=== PATIENT | female | born 1950 | race Caucasian/White ===

== ENCOUNTER 2018-05-15 11:51 | Outpatient (CLI) | payer MEDICARE, BC, SELFPAY ==
[2018-05-15 14:20] LABS: Bilirubin Negative (Negative); Blood Negative (Negative); Clarity Clear; Glucose Negative (Negative); Ketones Negative (Negative); Leukocyte Esterase Negative (Negative); Nitrite Negative (Negative); Specific Gravity 1.015 (1.005-1.025); Urobilinogen 0.2 EU/dL (Up TO 0.2)
[2018-05-15 15:30] LABS: TSH (W/Ref FT4) 4.05 uIU/mL (0.358-3.74)
[2018-05-15 16:01] LABS: FREE T4 1.06 ng/dL (0.76-1.46)
== END 2018-05-15 12:11 ==
PROVIDERS: PCP Internal Medicine; Visit Provider Internal Medicine
DX: E03.9 Hypothyroidism, unspecified (principal); I10 Essential (primary) hypertension; R35.1 Nocturia
CPT/HCPCS: 36415; 81003; 84439; 84443

== ENCOUNTER 2018-09-21 09:54 | Outpatient (CLI) | payer MEDICARE, BC, SELFPAY ==
[2018-09-21 10:21] LABS: Abs Immature Grans 0.02 k/cumm (0.0-0.09); Absolute Basophil Count 0.02 k/cumm (0.0-0.2); Absolute Eosinophil Count 0.16 k/cumm (0.0-0.7); Absolute Lymphocyte Count 1.17 k/cumm (1.2-3.4); Absolute Monocyte Count 0.49 k/cumm (0.11-0.7); Basophils % 0.3; Eosinophils % 2.4; Immature Grans % 0.3; Lymphocytes % 17.6; Mean Corp. HGB Concentration 33.3 g/dL (32.0-36.0); Mean Corpuscular Hemoglobin 32.3 pg (27.0-33.0); Mean Corpuscular Volume 96.8 fL (80-95); Mean Platelet Volume 11.1 fL (8.0-11.0); Monocytes % 7.4; Platelet Count 169 x1000/uL (130-400); RBC 4.03 m/cumm (4.00-5.20); RBC Distribution Width 13.6 % (11.7-14.6); White Blood Cell Count 6.66 k/cumm (4.4-10.8)
[2018-09-21 10:39] LABS: ALT 29 U/L (12-78); AST 22 U/L (15-37); Albumin 3.4 g/dL (3.4-5.0); Alkaline Phosphatase 81 U/L (46-116); Anion Gap 8.4 mmol/L (3-11); BUN 24 mg/dL (7-18); Bilirubin, Total 0.3 mg/dL (0.2-1.0); CO2 30.6 mmol/L (21.0-32.0); CREATININE 0.79 mg/dL (0.55-1.02); Calcium 9.5 mg/dL (8.5-10.1); Chloride 103 mmol/L (98-107); Glucose 92 mg/dL (70-100); Potassium 3.5 mmol/L (3.5-5.1); Sodium 142 mmol/L (136-145); Total Protein 6.8 g/dL (6.4-8.2)
== END 2018-09-21 10:14 ==
PROVIDERS: PCP Internal Medicine; Visit Provider Internal Medicine Medical Oncology
DX: C50.911 Malignant neoplasm of unspecified site of right female breast (principal)
CPT/HCPCS: 36415; 80053; 85025

== ENCOUNTER 2019-01-16 09:25 | Outpatient (CLI) | payer MEDICARE, BC, SELFPAY ==
--- NOTE | 2019-01-16 09:50 | DI.RAD_ITS ---
SYMPTOM/DIAGNOSIS: BACK JPAIN M54.9, DORSALGIA LUMBAR SPINE: AP lateral and bilateral oblique views. There are 5 lumbar type vertebral bodies. There is normal alignment. No spondylolysis or spondylolisthesis. There is mild disc space narrowing at L1-L2, L2-3 and L5-S1. There are end plate osteophytes throughout the lumbar spine. Degenerative changes of the facets are seen at multiple levels. No acute fractures or subluxations are seen. IMPRESSION: Moderate degenerative changes in the lumbar spine.
--- NOTE | 2019-01-16 09:50 | DI.RAD_ITS ---
SYMPTOM/DIAGNOSIS: BACK PAIN M54.9, DORSALGIA CHEST X-RAY: PA and lateral. Comparison 03/27/12 Heart size and pulmonary vasculature are stable and within normal limits. The lungs are clear. No effusions or pneumothoraces are identified. Surgical clips are again seen in the left axilla. There are mild degenerative changes of the spine. No compression fracture deformities are seen in the thoracic spine. IMPRESSION: No acute pulmonary process.
== END 2019-01-16 09:45 ==
PROVIDERS: PCP Internal Medicine; Visit Provider Internal Medicine
DX: M54.5 Low back pain (principal); M51.37 Other intervertebral disc degeneration, lumbosacral region; M47.817 Spondylosis without myelopathy or radiculopathy, lumbosacral region
CPT/HCPCS: 71046; 72110

== ENCOUNTER 2019-02-05 12:03 | Outpatient (CLI) | payer MEDICARE, BC, SELFPAY ==
--- NOTE | 2019-02-05 13:00 | DI.RAD_ITS ---
SYMPTOM/DIAGNOSIS: PAIN RT SACRAL AREA, M53.3, SACROCOCCYGEAL DISORDER SI JOINTS: Five views of the SI joints were obtained. There are mild hypertrophic degenerative changes involving the SI joints. There is no evidence of fusion of the SI joints nor is there evidence of sacroiliitis. Moderate degenerative changes of the lower lumbar spine noted.
[2019-02-05 15:17] LABS: TSH (W/Ref FT4) 3.06 uIU/mL (0.36-3.74)
== END 2019-02-05 12:23 ==
PROVIDERS: PCP Internal Medicine; Visit Provider Internal Medicine
DX: M53.3 Sacrococcygeal disorders, not elsewhere classified (principal); E03.9 Hypothyroidism, unspecified
CPT/HCPCS: 72202; 84443

== ENCOUNTER 2019-05-21 00:54 | Outpatient (CLI) | payer MEDICARE, BC, SELFPAY ==
--- NOTE | 2019-05-21 15:43 | DI.CT_ITS ---
EXAM: CT LUMBAR SPINE WO CLINICAL HISTORY: back pain/ unable to have MRI due to brain clips, lumbar pain, M54.5 TECHNIQUE: The exam was performed according to the usual protocol without contrast. COMPARISON: XR lumbar spine complete from 01/16/2019 XR sacroiliac joints from 02/05/2019 FINDINGS: There is diffuse osteopenia of the bones. In addition there are areas which show loss of the cortex. The findings are suspicious for metastatic disease. There is now a compression fracture of the superior endplate of L5 with loss of approximately 30 perc ent of the height of the vertebral body. There are also compression fractures involving the superior endplates of L1, L2, and L3. There is also marked compression deformity of T12 with loss of approximately 40 percent of the height of the vertebral body. At L5-S1, there is disc space narrowing, subchondral sclerosis and endplate osteophytes. No signific ant central spinal canal stenosis is seen. Moderately severe right and moderate left neural foramina l stenosis is present. At L4-L5, there is diffuse disc bulge. There are degenerative changes of the facets. There is mild narrowing of the central spinal canal. There is [id number] bilateral neural foraminal stenosis . At L3-L4, no significant central spinal canal stenosis is seen. There are endplate osteophytes presen t. Degenerative changes of the facets are noted. There is mild narrowing of the left neural foramen and mild narrowing of the right neural foramen. At L2-L3, there is a diffuse disc bulge. No significant central spinal canal stenosis is seen. Mini mal narrowing of the neural foramen is seen bilaterally. At L1-L2, no significant central spinal canal stenosis or neural foraminal stenosis exists. There are bilateral pleural effusions and subjacent infiltrates in the lung bases. These infiltrates may represent atelectasis or pneumonia. There is a 2.9 centimeter left adrenal nodule. Retroperitoneal adenopathy is present. The largest lymph node is seen to the left of the aorta and m easures 1.7 centimeters in short axis. IMPRESSION: 1. Mixed lytic and sclerotic lesions involving the bones suspicious for osseous metastatic disease. Bone scan may be considered for further evaluation. 2. Multiple lower thoracic and lumbar compression deformities as described above. 3. Multilevel degenerative changes resulting in multilevel neural foraminal and central spinal canal stenosis. Please see the above discussion for complete details. 4. Bilateral pleural effusions and subjacent infiltrates which may represent atelectasis or pneumonia . 5. Retroperitoneal adenopathy. Left adrenal nodule. Metastatic disease cannot be excluded. CT scan of the chest, abdomen and pelvis may be considered for further evaluation.
== END 2019-05-21 01:14 ==
PROVIDERS: PCP Internal Medicine; Visit Provider Internal Medicine
DX: M54.5 Low back pain (principal); M85.88 Other specified disorders of bone density and structure, other site; M48.55XA Collapsed vertebra, not elsewhere classified, thoracolumbar region, initial encounter for fracture; M51.37 Other intervertebral disc degeneration, lumbosacral region; J90 Pleural effusion, not elsewhere classified; R91.8 Other nonspecific abnormal finding of lung field; M84.88 Other disorders of continuity of bone, other site; E27.8 Other specified disorders of adrenal gland; R59.0 Localized enlarged lymph nodes
CPT/HCPCS: 72131

== ENCOUNTER 2019-05-29 13:54 | Outpatient (CLI) | payer MEDICARE, BC, SELFPAY ==
[2019-05-29 14:46] LABS: Abs Immature Grans 0.22 k/cumm (0.0-0.09); Absolute Basophil Count 0.03 k/cumm (0.0-0.2); Absolute Eosinophil Count 0.11 k/cumm (0.0-0.7); Absolute Lymphocyte Count 1.46 k/cumm (1.2-3.4); Absolute Monocyte Count 0.74 k/cumm (0.11-0.7); Absolute Neutrophil Count 6.47 k/cumm (1.2-6.7); Basophils % 0.3; Eosinophils % 1.2; HCT 38.5 % (36.0-46.0); HGB 13.3 g/dL (12.0-15.5); Immature Grans % 2.4; Lymphocytes % 16.2; Mean Corp. HGB Concentration 34.5 g/dL (32.0-36.0); Mean Corpuscular Hemoglobin 31.9 pg (27.0-33.0); Mean Corpuscular Volume 92.3 fL (80-95); Mean Platelet Volume 9.9 fL (8.0-11.0); Monocytes % 8.2; Neutrophils % 71.7; Platelet Count 210 x1000/uL (130-400); RBC 4.17 m/cumm (4.00-5.20); RBC Distribution Width 14.1 % (11.7-14.6); White Blood Cell Count 9.03 k/cumm (4.4-10.8)
[2019-05-29 15:11] LABS: ALT 28 U/L (14-59); AST 33 U/L (15-37); Albumin 3.8 g/dL (3.4-5.0); Alkaline Phosphatase 167 U/L (46-116); Anion Gap 10.7 mmol/L (3-11); BUN 17 mg/dL (7-18); Bilirubin, Total 0.5 mg/dL (0.2-1.0); CO2 31.3 mmol/L (21.0-32.0); CREATININE 0.71 mg/dL (0.55-1.02); Calcium 11.1 mg/dL (8.5-10.1); Chloride 94 mmol/L (98-107); Glucose 104 mg/dL (74-106); Potassium 3.2 mmol/L (3.5-5.1); Sodium 136 mmol/L (136-145); Total Protein 7.8 g/dL (6.4-8.2)
[2019-05-31 16:33] LABS: Cancer Ag 15-3 32 U/mL (<30)
== END 2019-05-29 14:14 ==
PROVIDERS: PCP Internal Medicine; Visit Provider Internal Medicine
DX: C50.911 Malignant neoplasm of unspecified site of right female breast (principal)
CPT/HCPCS: 36415; 80053; 86304; 85025; 86300

== ENCOUNTER 2019-06-10 11:38 | Inpatient (IN) | payer MEDICARE, BC, SELFPAY ==
[2019-06-10] VITALS (32 sets, daily range): BP systolic 103–167; BP diastolic 55–72; PULSE 72–92; RESP 9–20; TEMP 36.3–36.8; O2SAT 87–100
--- NOTE | 2019-06-10 12:01 | W.ED.GENAD ---
Discharge Plan Discharge Details Chief Complaint: RespSymp Admit Date/Time: 06/11/19 16:10 Admit Provider: Melanie Daives Attending Provider: Melanie Davies Primary Care Provider: Mago Velez ED Provider: Radha Weber Discharge Data Discharge Date/Time-TO BE ENTERED AT DEPARTURE: 06/10/19 18:10 Medical Decision Making <Guru Campos DO - Last Filed: 06/10/19 13:51> EKG 12: 26 Rate 85, intervals unremarkable, sinus rhythm, no significant ST elevations or depressions, no evidence of STEMI. <ELADIO Vincent - Last Filed: 06/12/19 00:54> Patient is a pleasant 69-year-old female presenting today with chief complaint of shortness of breath. Patient is currently being treated for recurrence of her breast cancer. There is concern that she has recurrent breast cancer that is metastatic with much disease in her spine. She has had difficulty with severe pain that has been limiting her ADLs. Is having difficulty can walk to the bathroom at this point. She is followed by palliative care. Was scheduled to undergo biopsy of lymph node last week was unable to get to the appointment secondary to the pain in her back. Having difficulty simply getting to the bathroom at this point and is largely relying her . She does have home health services come in approximately 2 hours/week. Reports that she was referred to occupational therapy. She presents today with concern for shortness of breath. Reports shortness of breath has began worsening over the past few days. States it is worse when laying supine. Denies any fevers. No cough. Denies any increase in sputum production. No recent travel. No recent antibiotics. Has never been a smoker. No known sick contacts. Endorses nausea currently. On exam, patient appears chronically ill. She does not appear acutely toxic. She not tripoding or working to breathe. She does appear very uncomfortable with minimal movements. Seems to be primarily pain in her back. She has reports the pain in her back and radiated down the right thigh. Differential diagnosis include metastasis to the lung, thoracic spine fracture, pulmonary embolism, pneumonia, ACS, CHF. Plan for chest x-ray, laboratory evaluation, ECG. After the patient had the IV ondansetron, she reports her nausea is improved but she continues to persist. We will give a GI cocktail patient's request. Reviewed patient's lab. Significant for d-dimer 6190. Plan for CTA to rule out PE. Patient does have elevated BNP of 663. CT reviewed by radiologist: FINDINGS: Pulmonary arteries: Small pulmonary embolus: Filling defect in small branch to the left upper lobe. (6: 314-317). Aorta: Unremarkable. No aortic aneurysm. No aortic dissection. Lungs: Consolidation in the lower lobes may represent atelectasis or pneumonia. Pleural space: Large left pleural effusion. Smaller right pleural effusion. Heart: Unremarkable. No cardiomegaly. No pericardial effusion. Adrenals: Left adrenal nodule 3 by 2.3 cm. Twelve Hounsfield units. Not clearly adrenal adenoma. Lymph nodes: Unremarkable. No enlarged lymph nodes. Bones/joints: Multiple sclerotic and lytic lesions throughout the spine consistent with metastatic disease. Compression fractures of unknown age in the thoracolumbar spine Soft tissues: Unremarkable. IMPRESSION: 1. Multiple sclerotic and lytic lesions throughout the spine consistent with metastatic disease. 2. Large left pleural effusion. Smaller right pleural effusion. 3. Small pulmonary embolus: Filling defect in small branch to the left upper lobe. (6: 314-317). 4. Consolidation in the lower lobes may represent atelectasis or pneumonia. 5. Left adrenal nodule 3 by 2.3 cm. Twelve Hounsfield units. Not clearly adrenal adenoma. Had lengthy discussion with the patient and her . She wishes to be a DNR/DNI at this time. They are considering hospice care at this point. We discussed inpatient treatment this patient has been failing at home. She would like to discuss anticoagulation further with hospitalist prior to beginning this treatment. Her pain seems to be a primary complaint at this time and her primary concern. I feel that inpatient admission for pain control is appropriate. Discussed the case with the hospitalist. We will plan for CT of her head prior to beginning anticoagulant. Patient be admitted for pain control and further care based on patient's wishes. All of her questions and concerns were addressed she is agreement this plan. HPI <Guru Campos, - Last Filed: 06/10/19 13:51> General Date/Time Provider Initiated Documentation: 06/10/19 11:39. Related Data Home Medications Medication Instructions Recorded Confirmed Travatan 0.004% Eye Drop 1 drp OU DAILY drp 05/17/13 12/22/19 Selwyn Seed 1 tbs PO DAILY 05/11/13 06/10/19 calcium carbonate [Tums] 2,000 mg PO twice a week #90 11/25/14 06/10/19 tab.chew cholecalciferol (vitamin D3) 2,000 unit PO DAILY #90 tab 11/25/14 06/10/19 [Vitamin D3] brimonidine 0.2 %-timolol 0.5 % 1 drp OD BID #5 m 05/17/18 06/10/19 eye drops losartan 100 1 tab PO DAILY #90 tab-cap 05/17/18 06/10/19 mg-hydrochlorothiazide 25 mg tablet levothyroxine 25 mcg capsule 37.5 mcg PO DAILY #145 cap 05/18/18 06/10/19 amlodipine 5 mg tablet 5 mg PO DAILY #30 tab-cap 01/15/19 06/10/19 salmeterol 50 mcg/dose blister 1 inh IH BID #60 each 02/28/19 06/10/19 powder for inhalation metoprolol succinate 50 mg 50 mg PO DAILY #90 tab 03/28/19 06/10/19 tablet,extended release 24 hr anastrozole 1 mg tablet 1 mg PO DAILY tab-cap 06/05/19 06/10/19 oxycodone 15 mg tablet 15 mg PO Q4H PRN #60 tab MDD 90 mg 06/05/19 06/10/19 polyethylene glycol 3350 17 17 gm PO DAILY PRN #510 gm 06/05/19 06/10/19 gram/dose oral powder fentanyl 4 patch TD Q72H MDD 48 mg 06/10/19 06/10/19 Previous Rx's Medication Instructions Recorded brimonidine 0.2 %-timolol 0.5 % 1 drp OD BID #5 m 05/17/18 eye drops losartan 100 1 tab PO DAILY #90 tab-cap 05/17/18 mg-hydrochlorothiazide 25 mg tablet levothyroxine 25 mcg capsule 37.5 mcg PO DAILY #145 cap 05/18/18 amlodipine 5 mg tablet 5 mg PO DAILY #30 tab-cap 01/15/19 salmeterol 50 mcg/dose blister 1 inh IH BID #60 each 02/28/19 powder for inhalation metoprolol succinate 50 mg 50 mg PO DAILY #90 tab 10/09/19 tablet,extended release 24 hr oxycodone 15 mg tablet 15 mg PO Q4H PRN #60 tab MDD 90 mg 06/05/19 polyethylene glycol 3350 17 17 gm PO DAILY PRN #510 gm 06/05/19 gram/dose oral powder Allergies Allergy/AdvReac Type Severity Reaction Status Date / Time nickel Allergy Severe SWELLING; Verified 06/10/19 12:02 ITCH paclitaxel [From Taxol] Allergy Intermediate Cardiac Verified 06/10/19 12:02 Dysrythmia formaldehyde Allergy Unknown HANDS Verified 06/10/19 12:02 BREAKOUT; CRACK iodine Allergy Unknown Verified 06/10/19 12:02 doxycycline AdvReac Intermediate Nausea Verified 06/10/19 12:02 <ELADIO Vincent - Last Filed: 06/12/19 00:54> General Mode of arrival: wheelchair. Limitations to Documentation: no limitations. Information obtained by: patient, family () and RN notes reviewed. HPI Narrative: Patient is 69-year-old female presenting today with chief complaint of shortness of breath. Patient is currently undergoing treatment for recurrent breast cancer. Is receiving immunotherapy. Is having issues with chronic pain is currently being treated by palliative care. She is noted to have crackles to be short of breath by her home health nurse today. She denies any cough. No fevers. Denies any chills. No new change in her pain. She denies any pleuritic chest pain, no pain with coughing or inspiration. Denies any sore throat. No recent travel. No recent change in medications. She does report that she had increased right leg pain, is being followed by Dr. Rogers for this. Currently using for fentanyl patches and as needed oxycodone. <ELADIO Vincent - Last Filed: 06/12/19 00:54> Constitutional Constitutional: Reports as per HPI, Denies chills, Reports fatigue, Denies fever(s), Denies headache(s), Reports lethargy and Reports poor appetite Eyes Eyes: Denies change in vision ENT Ears, Nose, Mouth, and Throat: Denies dizziness and Denies headache(s) Cardiovascular Cardiovascular: Reports as per HPI, Denies chest pain, Denies chest pain at rest, Denies chest pain with activity, Reports pedal edema, Reports edema, Denies irregular heart rhythm, Denies claudication, Denies lightheadedness, Denies radiating jaw, neck or arm pain, Denies palpitations, Reports dyspnea, Reports dyspnea on exertion and Reports orthopnea Respiratory Respiratory: Reports as per HPI, Denies chest congestion, Denies cough, Denies hemoptysis, Denies excessive phlegm production, Denies pain on inspiration, Denies pain with cough, Reports dyspnea, Reports dyspnea on exertion and Denies wheezing Gastrointestinal Gastrointestinal: Reports as per HPI, Denies abdominal pain, Denies diarrhea, Denies nausea and Denies vomiting Musculoskeletal Musculoskeletal: Reports as per HPI and Denies back pain Integumentary/Breasts Skin/Breast: Reports as per HPI and Denies rash Neurologic Neurologic: Reports as per HPI, Denies dizziness and Denies headache(s) Endocrine Endocrine: Reports fatigue and Denies palpitations Allergic/Immunologic Allergic/Immunologic: Denies wheezing [facility] <Guru Campos DO - Last Filed: 06/10/19 13:51> Medical History (Updated 06/11/19 @ 18:03 by Melissa Proctor MD) Aneurysm Asthma Blind right eye (Acute) Dyspnea (Acute) Generalized weakness (Acute) History of cerebral aneurysm (Acute) HTN (hypertension) Malignant neoplasm of breast (female), unspecified site (Acute 08/28/12) 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 Adjuvant RX and radiation Metastatic breast cancer (Chronic) to spine and other bones, lung, lymph nodes Neoplasm, breast Follow-up with [facility] this fall. Palliative care patient (Acute) Pulmonary embolism (Chronic) Recurrent breast cancer (Chronic) passed her 5 year cure date in September 2018 Unintentional weight loss (Acute) Surgical History Abdominal hysterectomy (~1998) ovaries remain Colonoscopy - IV Sedation (05/21/16) Family History Mother , age 83 Hypertension Stroke Father , age 85 Heart disease Sister , age 64 Leukemia Sister , age 83 Stroke Sister No problems noted. Brother , age 84 Heart disease Brother No problems noted. Son No problems noted. Son No problems noted. Daughter No problems noted. Daughter No problems noted. Social History Smoking/Tobacco Use Status: Never Alcohol Intake: current Alcohol Intake frequency: a few times a week Alcohol type: wine Drug use: Never Substance use type: does not use Caregiver/Support person: Yes Household members: spouse Housing: house Do you need help understanding health information?: Rarely Pets and animals: No Sexually active: No Do you think of yourself as: straight/heterosexual Current gender identity: decline to answer What is your relationship status?: How often do you talk on the phone with friends or family?: twice per week How often do you get together with friends or relatives?: once per week How often do you attend mormon or adventist services?: decline to answer Do you belong to any clubs or organized social groups?: yes Panel score (0-1 are the most socially isolated patients): 3 What type of physical activity do you participate in: walking and other Duration: 15-30 minutes/day Frequency: daily Leann/Jehovah'S Witness: Buddhist Special leann needs: No Seatbelt use: always Drive intox or ride w/intox restaurant 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 Not surprised at current findings. Knows she is very sick. Pain is uncontrolled, intolerable. Very winded with minimal exertion, weak,. <ELADIO Vincent - Last Filed: 06/12/19 00:54> Const General: cooperative, uncomfortable (appears very uncomfortable with movement), no acute distress and well developed Nutritional Appearance: cachectic and malnourished Orientation: alert, awake and oriented x3 HENMT Head: normal to inspection Ears: hearing grossly normal bilaterally Mouth: mucous membranes dry (appears dry on exam) Chest Chest: normal inspection of the chest, normal palpation of entire chest wall and no crepitus Resp Effort & Inspection: normal respiratory effort, able to speak in complete sentences and no respiratory distress Auscultation: clear to auscultation bilaterally, no rales, no rhonchi and no wheezes Cardio Rate: regular rate Rhythm: regular rhythm Heart Sounds: S1 normal and S2 normal GI Inspection: normal to inspection, no edema and non-distended Palpation: soft, no hepatosplenomegaly, not firm, no guarding, not rigid and nontender Auscultation: normal bowel sounds Back/Spine/Pelvis Back: no CVA tenderness Thoracic/Lumbar Spine: thoracic and lumbar spine normal to inspection Skin General skin exam: no rashes or lesions noted Trauma: no lacerations or abrasions Neuro General: alert, awake and oriented x3 Cognition: normal cognition Speech: speech normal Gait: normal gait Extrem General: normal to inspection, normal capillary refill, no pedal edema, no calf tenderness and normal gait Psych Appearance: grossly normal and well kempt Mental Status: mental status grossly normal Speech and Movement: speech and movement normal
[2019-06-10] MEDS: Ondansetron 4 MG/2 ML VIAL IVP (12:58)
[2019-06-10] MEDS: HYDROmorphone 2 MG/ML VIAL ×2 (12:58→16:43)
[2019-06-10 13:09] LABS: Abs Immature Grans 0.47 k/cumm (0.0-0.09); HCT 36.4 % (36.0-46.0); HGB 12.5 g/dL (12.0-15.5); Mean Corp. HGB Concentration 34.3 g/dL (32.0-36.0); Mean Corpuscular Hemoglobin 31.6 pg (27.0-33.0); Mean Corpuscular Volume 91.9 fL (80-95); Platelet Count 259 x1000/uL (130-400); RBC 3.96 m/cumm (4.00-5.20); RBC Distribution Width 13.9 % (11.7-14.6); White Blood Cell Count 10.91 k/cumm (4.4-10.8)
--- NOTE | 2019-06-10 13:41 | DI.RAD_ITS ---
EXAM: XR CHEST 2V PA LATERAL INDICATION: SOB. COMPARISON: CHEST 2 VIEWS PA,LAT from 03/27/2012 XR CHEST 2V PA LATERAL from 01/16/2019 CT ABDOMEN AND PELVIS W CONTRAST from 06/01/2019 CT CHEST PE CTA from 06/10/2019 TECHNIQUE: 2D digital imaging was performed. FINDINGS: The pulmonary vasculature appears stable and within normal limits. There are bilateral small pleural effusions, left greater than right. There is an infiltrate seen in the left lung base. No pneumoth orax is identified. There is an old right 6th rib fracture laterally. This was present on the CT sc an of the chest from [facility] dated 06/01/2019. Degenerative changes are seen in the spine. IMPRESSION: 1. Bilateral pleural effusions, left greater than right. 2. Left basilar infiltrate. This may represent atelectasis or pneumonia. 3. Stable right 6th rib fracture.
[2019-06-10 13:47] LABS: INR 1.1 (0.9-1.1); PTT Activated 23.9 sec (21.0-31.4); Prothrombin Time 11.2 sec (9.3-11.0)
[2019-06-10 13:51] LABS: Absolute Lymphocyte Count 1.42 k/cumm (1.2-3.4); Absolute Neutrophil Count 8.51 k/cumm (1.2-6.7); Atypical Lymphocytes % 2
[2019-06-10 13:52] LABS: ALT 35 U/L (14-59); AST 30 U/L (15-37); Absolute Eosinophil Count 0.11 k/cumm (0.0-0.7); Absolute Monocyte Count 0.55 k/cumm (0.11-0.7); Albumin 3.2 g/dL (3.4-5.0); Alkaline Phosphatase 171 U/L (46-116); BUN 25 mg/dL (7-18); Bilirubin, Total 0.5 mg/dL (0.2-1.0); CREATININE 0.94 mg/dL (0.55-1.02); Calcium 8.5 mg/dL (8.5-10.1); Chloride 90 mmol/L (98-107); Diff Comment Manual Differential; Glucose 104 mg/dL (74-106); Magnesium 2.1 mg/dL (1.8-2.4); NT-proBNP 663 pg/mL (<300); Potassium 3.4 mmol/L (3.5-5.1); RBC Morphology Normal; Sodium 129 mmol/L (136-145); Troponin I < 0.05 ng/Ml (<0.06)
[2019-06-10] MEDS: Pantoprazole 40 MG VIAL IVP ×2 (14:02)
[2019-06-10] MEDS: Normal Saline Flush 10 ML SYR IVP ×2 (14:02→19:48)
[2019-06-10 14:07] LABS: D-Dimer 6190 ng/mlFEU (<500)
--- NOTE | 2019-06-10 14:17 | DI.VRAD_ITS ---
PROCEDURE INFORMATION: Exam: XR Chest, 2 Views Exam date and time: 06/10/2019 1:41 PM Age: 69 years old Clinical indication: Shortness of breath; Patient HX: SOB TECHNIQUE: Imaging protocol: XR of the chest Views: 2 views. COMPARISON: CR XR CHEST 2V PA LATERAL 16/01/2019 09:49 FINDINGS: Lungs: Left lower lobe consolidation. Patchy infiltrate left upper lobe. Right lower lobe posterior segment infiltrate. Pleural space: Left pleural effusion. Small right pleural effusion. Heart/Mediastinum: Cardiomegaly. Prominent right hilar nodule. Bones/joints: Multilevel degenerative changes of the thoracic spine. Midthoracic compression deformities. Suspect right 6th lateral rib fracture. Soft tissues: Postsurgical changes left breast and chest. IMPRESSION: 1. Bilateral pneumonia. Bilateral pleural effusions. 2. Suspect right 6th lateral rib fracture. 3. Cardiomegaly. Dictated and Authenticated by: Gege Minor MD. Ordering:MARIA Garcia MD
[2019-06-10] MEDS: Omnipaque 350 MG/ML 100 ML BTL IJ (15:08)
--- NOTE | 2019-06-10 15:20 | DI.CT_ITS ---
EXAM: CT CHEST PE CTA CLINICAL HISTORY: SOB, elevated d-dimer TECHNIQUE: Imaging Protocol: Axial CT angiography was performed with multi-slice acquisition and mu lti-planar and/or 3D reconstructions. CONTRAST MATERIAL: Intravenous: Omnipaque 350 Contrast volume:70 mL contrast route:IV - Oral:No COMPARISON: CT ABDOMEN AND PELVIS W CONTRAST from 06/01/2019 FINDINGS: Pulmonary Arteries: There does appear to be a small filling defect in a branch of the pulmonary arter ies in the left upper lobe. (Series 6, images [id number].) Tracheobronchial tree: Patent where visualized. Mediastinum and Mikala: No dominant adenopathy or fluid collection. Pulmonary parenchyma: There is an unchanged opacity in the left lung apex. There are areas of consol idation adjacent to the pleural effusions in the lung bases bilaterally. Pleura: There is a large left and a smaller right pleural effusion present. Heart/Aorta: Thoracic aorta non-dilated. No cardiomegaly. No pericardial effusion. No evidence of r ight heart strain. No coronary artery calcifications are seen. Upper abdomen: Note is again made of a left adrenal nodule which appears stable. Bones: There are again seen multiple lytic and sclerotic lesions consistent with metastatic disease. There are age-indeterminate compression fracture deformities seen in both the thoracic and upper lum bar spine. IMPRESSION: 1. Filling defect is seen in a branch of the pulmonary artery in the left upper lobe suggesting pulmo nary embolus. No evidence of right heart strain. 2. Large left and smaller right pleural effusion with subjacent infiltrates which may represent atele ctasis or pneumonia. 3. Stable opacity in the left lung apex. 4. Findings consistent with osseous metastatic disease. Indeterminate thoracic and lumbar compressio n fracture deformities. 5. Stable left adrenal nodule. DATA REPOSITORY: All CT scans at this facility are submitted to the National Radiology Data Registry (NRDR) Dose Index Registry (DIR) with the [employer] ([employer]). RADIATION OPTIMIZATION: All CT scans at this facility use at least one of these dose optimization te chniques: automated exposure control; mA and/or kV adjustment per patient size (includes targeted exa ms where dose is matched to clinical indication); or iterative reconstruction.
[2019-06-10] MEDS: Normal Saline 500 ML IV (16:00)
--- NOTE | 2019-06-10 16:04 | DI.VRAD_ITS ---
Addendum created by Clari Butt MD on 06/10/2019 4:08:07 PM EST THIS REPORT CONTAINS FINDINGS THAT MAY BE CRITICAL TO PATIENT CARE. The findings were verbally communicated via telephone conference with NATALY NAPIER at 4:08 PM EST on 06/10/2019. The findings were acknowledged and understood. Initial report created on 06/10/2019 4:04:10 PM EST PROCEDURE INFORMATION: Exam: CT Angiography Chest With Contrast Exam date and time: 06/10/2019 3:07 PM Age: 69 years old Clinical indication: Shortness of breath; Patient HX: SOB, elevated d- dimer TECHNIQUE: Imaging protocol: Computed tomographic angiography of the chest with intravenous contrast. 3D rendering: MIP and/or 3D reconstructed images were created by the technologist. Radiation optimization: All CT scans at this facility use at least one of these dose optimization techniques: automated exposure control; mA and/or kV adjustment per patient size (includes targeted exams where dose is matched to clinical indication); or iterative reconstruction. Contrast material: OMNIPAQUE 350; Contrast volume: 70 ml; Contrast route: IV; COMPARISON: CR XR CHEST 2V PA LATERAL 06/10/2019 1:38 PM FINDINGS: Pulmonary arteries: Small pulmonary embolus: Filling defect in small branch to the left upper lobe. (6: 314-317). Aorta: Unremarkable. No aortic aneurysm. No aortic dissection. Lungs: Consolidation in the lower lobes may represent atelectasis or pneumonia. Pleural space: Large left pleural effusion. Smaller right pleural effusion. Heart: Unremarkable. No cardiomegaly. No pericardial effusion. Adrenals: Left adrenal nodule 3 by 2.3 cm. Twelve Hounsfield units. Not clearly adrenal adenoma. Lymph nodes: Unremarkable. No enlarged lymph nodes. Bones/joints: Multiple sclerotic and lytic lesions throughout the spine consistent with metastatic disease. Compression fractures of unknown age in the thoracolumbar spine Soft tissues: Unremarkable. IMPRESSION: 1. Multiple sclerotic and lytic lesions throughout the spine consistent with metastatic disease. 2. Large left pleural effusion. Smaller right pleural effusion. 3. Small pulmonary embolus: Filling defect in small branch to the left upper lobe. (6: 314-317). 4. Consolidation in the lower lobes may represent atelectasis or pneumonia. 5. Left adrenal nodule 3 by 2.3 cm. Twelve Hounsfield units. Not clearly adrenal adenoma. Dictated and Authenticated by: Clari Butt MD. Ordering:MARIA Garcia MD
--- NOTE | 2019-06-10 16:48 | HPE_ITS ---
Date of service: 06/10/19 Assessment and Plan Assessment and plan (1) Malignant neoplasm of breast (female), unspecified site: Start date: 06/10/19 Start time: 17:38 Status: Acute Assessment and plan: Breast CA with mets to the bone. Palliative patient with uncontrolled pain. On fentanyl patch at this time. Increased SOB and found to have PE. Also c/o hallucinations and confusion. Could be narcotics also likely brain mets. Will obtain Head CT/ hold anticoagulation at this time Add morphine IV for pain control Lengthy discussion with patient regarding illness and goals of care. Palliative/Hospice for consult. At this time patient wants to know more about Hospice Surgery consult as there is also Large left pleural effusion which is likely contributing to SOB (2) Pulmonary embolism: Start date: 06/10/19 Start time: 17:37 Status: Chronic Assessment and plan: Small pulmonary embolism revealed by CT. Hold anticogulation due to possible brain mets. (3) Uncontrolled pain: Start date: 06/10/19 Start time: 17:41 Status: Acute Assessment and plan: From cancer. See above, will give IV morphine. (4) Pleural effusion: Start date: 06/10/19 Start time: 17:41 Status: Acute Assessment and plan: Chest CT revealing large left pleural effusion. Surgery consult for possible drainage of effusion. (5) Essential hypertension: Start date: 06/10/19 Start time: 17:42 Status: Acute Assessment and plan: Variable though could be a component with pain as well. Will monitor. 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 (7) Hallucinations: Start date: 06/10/19 Start time: 17:45 Status: Acute Assessment and plan: Worsening over last week. Lucid during hallucinations also confusion at times. Could be mets or medication induced will get CT of h ead. (8) DVT prophylaxis: Start date: 06/10/19 Start time: 17:45 Status: Acute Assessment and plan: Hold at this time due to possible brain mets. History of Present Illness History of Present Illness Chief Complaint: PE, Pleural Effusion, Bone Mets Narrative: 69 y.o female with PMH of breast ca with mets to the bone, HTN, GERD, Aneurysm, and Asthma admitted from [facility] ED for PE and pain control. Patient presented to ED after 1 week of SOB worsening to the point of being unable to lie down with severe pain uncontrolled by current pain regimen. Recently diagnosed by [facility] with bone mets and placed on fentanyl patch for pain. Imaging in the ED reveals Multiple sclerotic and lytic lesions throughout the spine consistent with metastatic disease. Large left pleural effusion. Smaller right pleural effusion. Small pulmonary embolus: Filling defect in small branch to the left upper lobe. (6: 314-317). Consolidation in the lower lobes may represent atelectasis or pneumonia. Left adrenal nodule 3 by 2.3 cm. Twelve Hounsfield units. Not clearly adrenal adenoma. There is also a question of brain mets with patient endorsing hallucination and confusion for at least 1 week though this could be from medication. CT will be obtained. Labs notable for potassium 3.4, sodium 129, will give potassium run at this time, consult surgery for large effusion, hold on anticoagulation at this time due to possible brain mets. Hospice consulted and palliative consulted. Patient denies CP, N/V/D. Review of Systems All systems reviewed & are unremarkable except as noted in HPI and below [facility] Medical History Aneurysm Asthma HTN (hypertension) Neoplasm, breast Follow-up with [facility] this fall. Surgical History Abdominal hysterectomy (~1998) ovaries remain Colonoscopy - IV Sedation (05/21/16) Family History Mother , age 83 Hypertension Stroke Father , age 85 Heart disease Sister , age 64 Leukemia Sister , age 83 Stroke Sister No problems noted. Brother , age 84 Heart disease Brother No problems noted. Son No problems noted. Son No problems noted. Daughter No problems noted. Daughter No problems noted. Social History Smoking/Tobacco Use Status: Never Alcohol Intake: current Alcohol Intake frequency: a few times a week Alcohol type: wine Drug use: Never Substance use type: does not use Caregiver/Support person: Yes Household members: spouse Housing: house Do you need help understanding health information?: Rarely Pets and animals: No Sexually active: No Do you think of yourself as: straight/heterosexual Current gender identity: decline to answer What is your relationship status?: How often do you talk on the phone with friends or family?: twice per week How often do you get together with friends or relatives?: once per week How often do you attend presybeterian or restorationist services?: decline to answer Do you belong to any clubs or organized social groups?: yes Panel score (0-1 are the most socially isolated patients): 3 What type of physical activity do you participate in: walking and other Duration: 15-30 minutes/day Frequency: daily Leann/Christianity: Amish Special leann needs: No Seatbelt use: always Drive intox or ride 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 Do you feel safe at home: Yes Do you feel safe in your relationship?: Yes Meds Home Medications and Allergies Home Medications Medication Instructions Recorded Confirmed Type Travatan 0.004% Eye Drop 1 drp OU DAILY drp 11/03/12 06/05/19 History Selwyn Seed 1 tbs PO DAILY 05/11/13 06/05/19 History calcium carbonate [Tums] 2,000 mg PO twice a week #90 11/25/14 06/05/19 History tab.chew cholecalciferol (vitamin D3) 2,000 unit PO DAILY #90 tab 11/25/14 06/05/19 History [Vitamin D3] brimonidine-timolol 0.2 %-0.5 % 1 drp OD BID #5 m 05/17/18 06/05/19 Rx eye drops losartan 100 1 tab PO DAILY #90 tab-cap 05/17/18 06/05/19 Rx mg-hydrochlorothiazide 25 mg tablet levothyroxine 25 mcg capsule 37.5 mcg PO DAILY #145 cap 05/18/18 06/05/19 Rx amlodipine 5 mg tablet 5 mg PO DAILY #30 tab-cap 01/15/19 06/05/19 Rx salmeterol 50 mcg/dose blister 1 inh IH BID #60 each 02/28/19 06/05/19 Rx powder for inhalation metoprolol succinate 50 mg 50 mg PO DAILY #90 tab 03/28/19 06/05/19 Rx tablet,extended release 24 hr anastrozole 1 mg tablet 1 mg PO DAILY tab-cap 06/05/19 06/05/19 History oxycodone 15 mg tablet 15 mg PO Q4H PRN #60 tab MDD 90 mg 06/05/19 06/05/19 Rx polyethylene glycol 3350 17 17 gm PO DAILY PRN #510 gm 06/05/19 06/05/19 Rx gram/dose oral powder fentanyl 4 patch TD Q72H MDD 48 mg 06/10/19 06/10/19 History Allergies Allergy/AdvReac Type Severity Reaction Status Date / Time nickel Allergy Severe SWELLING; Verified 06/10/19 12:02 ITCH paclitaxel [From Taxol] Allergy Intermediate Cardiac Verified 06/10/19 12:02 Dysrythmia formaldehyde Allergy Unknown HANDS Verified 06/10/19 12:02 BREAKOUT; CRACK iodine Allergy Unknown Verified 06/10/19 12:02 doxycycline AdvReac Intermediate Nausea Verified 06/10/19 12:02 Exam Const General: cooperative and comfortable Nutritional Appearance: thin Orientation: alert, awake and oriented x3 HENMT Head: normal to inspection Ears: hearing grossly impaired General nose exam: external nose normal Eyes Pupils: PERRL EOM: EOM intact bilaterally Neck Neck: normal visual inspection Thyroid: thyroid normal Lymphatic: no lymphadenopathy noted Chest Chest: normal inspection of the chest Resp Effort & Inspection: able to speak in complete sentences, decreased respiratory effort and other Auscultation: clear to auscultation bilaterally Cardio Jugular venous pressure: no JVD Rate: regular rate Rhythm: regular rhythm Heart Sounds: S1 normal and S2 normal GI Inspection: normal to inspection Palpation: soft and no hepatosplenomegaly Percussion: normal to percussion General: deferred Back/Spine/Pelvis Back: no CVA tenderness Thoracic/Lumbar Spine: No thoracic and lumbar spine normal to inspection Other: severe pain to hip and back Skin General skin exam: no rashes or lesions noted Trauma: no lacerations or abrasions Neuro General: alert, awake and oriented x3 Cognition: normal cognition Extrem General: normal to inspection Left upper extremity: full ROM Psych Appearance: grossly normal Affect: normal affect Results Labs Result diagrams: 06/10/19 12:55 06/10/19 12:55 Labs: Laboratory Results - last 24 hr 06/10/19 06/10/19 06/10/19 12:55 12:55 12:55 WBC 10.91 H RBC 3.96 L Hgb 12.5 Hct 36.4 MCV 91.9 MCH 31.6 MCHC 34.3 RDW 13.9 Plt Count 259 MPV 10.0 Immature Gran % See Differential Neutrophils % 77.0 Band Neutrophils % 1.0 Lymphocytes % 11.0 Atypical Lymphs % 2 Monocytes % 5.0 Eosinophils % 1.0 Basophils % 0.0 Metamyelocytes % 1.0 Myelocytes % 2.0 Absolute Neutrophils 8.51 H Absolute Lymphocytes 1.42 Absolute Monocytes 0.55 Absolute Eosinophils 0.11 Absolute Basophils 0.00 Differential Comment Manual differential RBC Morphology Normal PT 11.2 H INR 1.1 APTT 23.9 D-Dimer 6190 H Sodium 129 L Potassium 3.4 L Chloride 90 L Carbon Dioxide 35.0 H Anion Gap 4.0 BUN 25 H Creatinine 0.94 Estimated GFR/1.73 m2 58.70 Glucose 104 Calcium 8.5 Magnesium 2.1 Total Bilirubin 0.5 AST 30 ALT 35 Alkaline Phosphatase 171 H Troponin I < 0.05 NT-Pro-B Natriuret Pep 663 Total Protein 7.0 Albumin 3.2 L Last Vital Signs Temp 36.3 C L 06/10/19 11:52 Pulse 85 06/10/19 16:31 Resp 16 06/10/19 14:50 BP 150/60 H 06/10/19 16:31 Pulse Ox 92 L 06/10/19 16:31
[2019-06-10] MEDS: HYDROmorphone 2 MG/ML VIAL 1 MG IVP (18:07)
--- NOTE | 2019-06-10 18:22 | DI.CT_ITS ---
EXAM: CT HEAD WO CLINICAL HISTORY: brain mets?? TECHNIQUE: The exam was performed according to the usual protocol without contrast. COMPARISON: No exams were available for comparison FINDINGS: The ventricles and sulci are consistent with the patient's age. There are areas of encephalomalacia involving the left frontal lobe and the right posterior parietal lobe. The ventricles are intact. T he basilar cisterns are patent. No acute intracranial hemorrhage, midline shift or mass effect is pr esent. There are aneurysm clips seen in the anterior midline. There are findings of a prior right f rontal and temporal craniotomy. The visualized paranasal sinuses are clear as are the mastoid air ce lls. No calvarial fracture is identified. The contrast was not administered which limits evaluation for metastatic disease. IMPRESSION: 1. Suboptimal examination for metastases as IV contrast was not administered. 2. No acute intracranial process. 3. Findings of a prior aneurysm clipping with right frontal craniotomy. 4. Areas of encephalomalacia involving the left frontal lobe and the posterior right parietal lobe.
--- NOTE | 2019-06-10 18:36 | DI.VRAD_ITS ---
PROCEDURE INFORMATION: Exam: CT Head Without Contrast Exam date and time: 06/10/2019 6:16 PM Age: 69 years old Clinical indication: Patient HX: HX of cancer, ? brain mets TECHNIQUE: Imaging protocol: Computed tomography of the head without contrast. Radiation optimization: All CT scans at this facility use at least one of these dose optimization techniques: automated exposure control; mA and/or kV adjustment per patient size (includes targeted exams where dose is matched to clinical indication); or iterative reconstruction. COMPARISON: No relevant prior studies available. FINDINGS: Brain: Mildly prominent ventricles and cortical sulci. Old right posterior parietal and left frontal lobe infarct. Midline shift: Anterior midline aneurysmal clip. Ventricles: Unremarkable. No ventriculomegaly. Bones/joints: There are no prior films available for comparison. Patient has had a prior right frontal craniotomy with an aneurysmal clips in place. There is no evidence for bone metastases. Sinuses: Visualized sinuses are unremarkable. No fluid levels. Mastoid air cells: Visualized mastoid air cells are well aerated. Soft tissues: Unremarkable. Vasculature: No IV contrast was administered to evaluate for metastatic lesions. IMPRESSION: 1. Cannot rule out brain metastases without IV contrast. Prior studies would be helpful for further evaluation. 2. Prior right frontal craniotomy with aneurysmal clips in place. 3. 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 Dictated and Authenticated by: Gege Minor MD. Ordering:GUNJAN Joel MD
[2019-06-10] MEDS: POTASSIUM CHLORIDE 10 MEQ/100 ML BAG 100 MEQ IV ×2 (19:48→21:15)
[2019-06-10] MEDS: Potassium Chloride 20 MEQ TABCR PO (21:33)
[2019-06-10] MEDS: oxyCODONE 15 MG TAB PO (21:33)
[2019-06-11] VITALS (9 sets, daily range): BP systolic 102–151; BP diastolic 60–69; PULSE 77–94; RESP 12–20; TEMP 36–37.2; O2SAT 88–99
[2019-06-11] MEDS: oxyCODONE 15 MG TAB PO ×2 (05:42→20:35)
[2019-06-11 06:42] LABS: HCT 36.5 % (36.0-46.0); HGB 12.3 g/dL (12.0-15.5); Mean Corp. HGB Concentration 33.7 g/dL (32.0-36.0); Mean Corpuscular Hemoglobin 31.6 pg (27.0-33.0); Mean Corpuscular Volume 93.8 fL (80-95); Mean Platelet Volume 10.3 fL (8.0-11.0); Platelet Count 267 x1000/uL (130-400); RBC 3.89 m/cumm (4.00-5.20); RBC Distribution Width 14.1 % (11.7-14.6)
[2019-06-11 06:48] LABS: BUN 19 mg/dL (7-18); CREATININE 0.83 mg/dL (0.55-1.02); Calcium 8.4 mg/dL (8.5-10.1); Chloride 95 mmol/L (98-107); Glucose 95 mg/dL (74-106); Potassium 3.9 mmol/L (3.5-5.1); Sodium 131 mmol/L (136-145)
[2019-06-11] MEDS: Normal Saline 1,000 ML 75 ML IV (09:40)
--- NOTE | 2019-06-11 09:55 | PDOC.CMIN ---
- If Service Date Differs Date of service: 06/11/19 Time of Service: 09:56 Care Management Initial Assess REASON FOR HOSPITALIZATION:: PE, pleural effusion, breast cancer with mets. PAST MEDICAL HISTORY/PAST SURGICAL HISTORY:: Medical History: Aneurysm, Asthma, HTN (hypertension), Neoplasm, breast - Follow-up with [facility] this fall. Surgical History: Abdominal hysterectomy (~1998) - ovaries remain and. Colonoscopy - IV Sedation. PREVIOUS FUNCTIONAL STATUS/SOCIAL/FAMILY SUPPORTS:: Jaclyn resides in [place] with her . The couple has four children and five grandchildren; all of whom live out of state. Jaclyn, who goes by Fay, shares she was diagnosed with breast cancer in 2011 and underwent treatment at [facility]. Fay names her as a source of support. She also receives Home Health nursing services. Since June 05, 2019, Fay reports she has been unable to walk without assistance from her and has been using a wheelchair at home. CURRENT FUNCTIONAL STATUS:: Fay is lying in bed when CM comes to meet with her. Her is present in the room. Fay is pleasant and easily engages in conversation. She expresses she is extremely tired, does not feel up to talking anymore and just wants to rest. I advise her I will come back to see her tomorrow and leave the room. ADVANCE DIRECTIVES:: On file at [facility]; ,Baudilio Gaffney, is agent. Has patient been provided with information about the portal?: Yes Did the patient sign up for the portal?: Yes (Already enrolled.) CODE STATUS:: DNR/DNI INSURANCE COVERAGE / FINANCIAL ISSUES:: Federal BS and Medicare. CURRENT HOME/COMMUNITY SERVICES/EQUIPMENT:: Home Health nursing. Fay has a wheelchair at home. PRIMARY CARE PHYSICIAN:: Mago Velez MD ([facility]) POTENTIAL DISCHARGE NEEDS:: Follow-up appointments with PCP, [facility] oncology, and palliative care. PATIENT/FAMILY EDUCATION NEEDS:: Discharge plan, limitations, follow-up plan, including Ask Me Three and self-management. ANTICIPATED BARRIERS TO DISCHARGE:: None. TRANSPORTATION:: Transportation is to be determined at a later time. PLAN:: Fay will be discharged home when medically cleared by provider. Anticipate resumption of Home Health RN services and new OT services. Transportation home is to be determined at time of discharge. CM continues to support patient and to support discharge planning needs.
[2019-06-11] MEDS: fentaNYL 50 MCG PATCH TD (10:59)
--- NOTE | 2019-06-11 11:06 | PGE_ITS ---
Date of Service Date of service: 06/11/19 Time of Service: 11:06 Assessment and Plan Assessment and plan (1) Malignant neoplasm of breast (female), unspecified site: Start date: 06/11/19 Start time: 11:20 Status: Acute Assessment and plan: Palliative to see patient today. Pain is improving with Morphine. Fentanyl patch increased to 62.5 mcg. Images pushed to [facility], awaiting call back from Oncologist to discuss patient prognosis. MRI not obtainable given patient clip will get CT head with contrast tomorrow to evaluate for brain mets, unable to evaluate on CT without contrast. Hold off anticoagulation until CT done. Dopplers to r/o DVT in setting of PE. (2) Pulmonary embolism: Start date: 06/11/19 Start time: 11:23 Status: Chronic Assessment and plan: Small pulmonary embolism revealed by CT. Dopplers to R/o DVT Hold anticogulation due to possible brain mets. see above (3) Uncontrolled pain: Start date: 06/11/19 Start time: 11:23 Status: Acute Assessment and plan: Improving. Controlled when not moving. 62.5 mcg fentanyl patch ordered, Continue 4 mg morphine prn for pain Prednisone 60 mg added for pain (4) Pleural effusion: Start date: 06/11/19 Start time: 11:31 Status: Acute Assessment and plan: Chest CT revealing large left pleural effusion. Surgery consult for possible drainage of effusion. Dr. Chin to evaluate patient for possible thoracentesis with cytology (5) Essential hypertension: Start date: 06/11/19 Start time: 11:31 Status: Acute Assessment and plan: Normotensive at this time. pain appears controlled. Continue to monitor. 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 (7) Hallucinations: Start date: 06/11/19 Start time: 11:37 Status: Acute Assessment and plan: Worsening over last week. Lucid during hallucinations also confusion at times. Could be mets or medication induced will get CT of head. Has not had any hallucinations in last 18 hours. Continue to monitor. See above. (8) DVT prophylaxis: Start date: 06/11/19 Start time: 11:37 Status: Acute Assessment and plan: Hold at this time due to possible brain mets. R/O DVT at this time, hold on SCDs and TEDS. Above case was discussed with Dr. Davies who in agreement. Subjective Subjective Patient reports: other Interval history since last seen: Pain is improving. Patient is struggling with recent information regarding cancer. Patient states she wants to go home for venice but at the same time does not see the point; stating I have a million things to do and they will never get done, so what is the point. Dr. Gee will see her tonight and [facility] services will be sitting with patient and today. She is agreeable to testing. Surgery has been consulted for possible thoracentesis. Doppler u/s to r/o DVT given PE. MRI is not an option to evaluate for brain mets given aneurysm clips therefore CT of head with contrast would be an option tomorrow if renal function within limits. She denies CP, N/V/D. Fentanyl patch changed to 50 mcg. Exam Const General: cooperative and comfortable Nutritional Appearance: thin Orientation: alert, awake and oriented x3 HENMT Head: normal to inspection Ears: hearing grossly impaired General nose exam: external nose normal Eyes Pupils: PERRL EOM: EOM intact bilaterally Neck Neck: normal visual inspection Thyroid: thyroid normal Lymphatic: no lymphadenopathy noted Chest Chest: normal inspection of the chest Resp Effort & Inspection: able to speak in complete sentences, decreased respiratory effort and other Auscultation: clear to auscultation bilaterally and diminished lung sounds on the left in the lower lung dubois Cardio Jugular venous pressure: no JVD Rate: regular rate Rhythm: regular rhythm Heart Sounds: S1 normal and S2 normal GI Inspection: normal to inspection Palpation: soft and no hepatosplenomegaly Percussion: normal to percussion General: deferred Back/Spine/Pelvis Back: no CVA tenderness Thoracic/Lumbar Spine: No thoracic and lumbar spine normal to inspection Skin General skin exam: no rashes or lesions noted Trauma: no lacerations or abrasions Neuro General: alert, awake and oriented x3 Cognition: normal cognition Extrem General: normal to inspection Left upper extremity: full ROM Psych Appearance: grossly normal Affect: normal affect Objective Objective Clinical Data: Abnormal lab results 06/10/19 06/10/19 06/10/19 Range/Units 12:55 12:55 12:55 WBC 10.91 H (4.4-10.8) k/cumm RBC 3.96 L (4.00-5.20) m/cumm Absolute Neutrophils 8.51 H (1.2-6.7) k/cumm PT 11.2 H (9.3-11.0) sec D-Dimer 6190 H (<500) ng/mlFEU Sodium 129 L (136-145) mmol/L Potassium 3.4 L (3.5-5.1) mmol/L Chloride 90 L (98-107) mmol/L Carbon Dioxide 35.0 H (21.0-32.0) mmol/L BUN 25 H (7-18) mg/dL Calcium (8.5-10.1) mg/dL Alkaline Phosphatase 171 H (46-116) U/L Albumin 3.2 L (3.4-5.0) g/dL 06/11/19 06/11/19 Range/Units 06:08 06:08 WBC (4.4-10.8) k/cumm RBC 3.89 L (4.00-5.20) m/cumm Absolute Neutrophils (1.2-6.7) k/cumm PT (9.3-11.0) sec D-Dimer (<500) ng/mlFEU Sodium 131 L (136-145) mmol/L Potassium (3.5-5.1) mmol/L Chloride 95 L (98-107) mmol/L Carbon Dioxide 33.0 H (21.0-32.0) mmol/L BUN 19 H D (7-18) mg/dL Calcium 8.4 L (8.5-10.1) mg/dL Alkaline Phosphatase (46-116) U/L Albumin (3.4-5.0) g/dL Vital Signs Temperature 36.2 C L 06/11/19 07:25 Temperature Source Temporal Artery Scan 06/11/19 07:25 Pulse 79 06/11/19 07:25 Pulse Rhythm Regular 06/10/19 19:57 Pulse 89 06/10/19 14:50 Respiratory Rate 12 06/11/19 09:20 Respiratory Effort 06/11/19 09:20 Respiratory Depth Shallow 06/11/19 09:20 Respiratory Pattern Normal 06/11/19 09:20 Blood Pressure 122/69 06/11/19 07:25 Blood Pressure Mean 75 06/10/19 17:33 Blood Pressure Position Supine 06/10/19 11:52 Pulse Oximetry 96 06/11/19 09:10 Oxygen Delivery Method Room Air 06/11/19 09:10 Oxygen Flow Rate 0 06/11/19 09:10 Fraction of Inspired Oxygen (FIO2) 21 06/11/19 09:10 Pain Level 7 06/11/19 07:25 Intake & Output 06/10/19 06/10/19 06/11/19 11:59 23:59 11:59 Intake Total 600 / 600 Output Total 1050 / 1050 500 / 500 Balance -450 / -450 -500 / -500 Weight 72.8 kg 72.8 kg Intake: IV 600 / 600 Output: Urine 1050 / 1050 500 / 500 Other: Urine Color Yellow Light Shy Urine Appearance Clear Clear Stool Size Large Stool Characteristics Soft Formed Laboratory Results WBC 9.40 k/cumm (4.4-10.8) 06/11/19 06:08 RBC 3.89 m/cumm (4.00-5.20) L 06/11/19 06:08 Hgb 12.3 g/dL (12.0-15.5) 06/11/19 06:08 Hct 36.5 % (36.0-46.0) 06/11/19 06:08 MCV 93.8 fL (80-95) 06/11/19 06:08 MCH 31.6 pg (27.0-33.0) 06/11/19 06:08 MCHC 33.7 g/dL (32.0-36.0) 06/11/19 06:08 RDW 14.1 % (11.7-14.6) 06/11/19 06:08 Plt Count 267 x1000/uL (130-400) 06/11/19 06:08 MPV 10.3 fL (8.0-11.0) 06/11/19 06:08 Immature Gran % See Differential 06/10/19 12:55 Neutrophils % 77.0 06/10/19 12:55 Band Neutrophils % 1.0 % 06/10/19 12:55 Lymphocytes % 11.0 06/10/19 12:55 Atypical Lymphs % 2 06/10/19 12:55 Monocytes % 5.0 06/10/19 12:55 Eosinophils % 1.0 06/10/19 12:55 Basophils % 0.0 06/10/19 12:55 Metamyelocytes % 1.0 % 06/10/19 12:55 Myelocytes % 2.0 % 06/10/19 12:55 Absolute Neutrophils 8.51 k/cumm (1.2-6.7) H 06/10/19 12:55 Absolute Lymphocytes 1.42 k/cumm (1.2-3.4) 06/10/19 12:55 Absolute Monocytes 0.55 k/cumm (0.11-0.7) 06/10/19 12:55 Absolute Eosinophils 0.11 k/cumm (0.0-0.7) 06/10/19 12:55 Absolute Basophils 0.00 k/cumm (0.0-0.2) 06/10/19 12:55 Differential Comment Manual differential 06/10/19 12:55 RBC Morphology Normal 06/10/19 12:55 PT 11.2 sec (9.3-11.0) H 06/10/19 12:55 INR 1.1 (0.9-1.1) 06/10/19 12:55 APTT 23.9 sec (21.0-31.4) 06/10/19 12:55 D-Dimer 6190 ng/mlFEU (<500) H 06/10/19 12:55 Sodium 131 mmol/L (136-145) L 06/11/19 06:08 Potassium 3.9 mmol/L (3.5-5.1) 06/11/19 06:08 Chloride 95 mmol/L (98-107) L 06/11/19 06:08 Carbon Dioxide 33.0 mmol/L (21.0-32.0) H 06/11/19 06:08 Anion Gap 3.0 mmol/L (3-11) 06/11/19 06:08 BUN 19 mg/dL (7-18) H D 06/11/19 06:08 Creatinine 0.83 mg/dL (0.55-1.02) 06/11/19 06:08 Estimated GFR/1.73 m2 >= 60.00 (mL/min/1.73m2) 06/11/19 06:08 Glucose 95 mg/dL (74-106) 06/11/19 06:08 Calcium 8.4 mg/dL (8.5-10.1) L 06/11/19 06:08 Magnesium 2.1 mg/dL (1.8-2.4) 06/10/19 12:55 Total Bilirubin 0.5 mg/dL (0.2-1.0) 06/10/19 12:55 AST 30 U/L (15-37) 06/10/19 12:55 ALT 35 U/L (14-59) 06/10/19 12:55 Alkaline Phosphatase 171 U/L (46-116) H 06/10/19 12:55 Troponin I < 0.05 ng/Ml (<0.06) 06/10/19 12:55 NT-Pro-B Natriuret Pep 663 pg/mL (<300) 06/10/19 12:55 Total Protein 7.0 g/dL (6.4-8.2) 06/10/19 12:55 Albumin 3.2 g/dL (3.4-5.0) L 06/10/19 12:55
--- NOTE | 2019-06-11 11:14 | W.NUTCONSULT ---
Date of service: 06/11/19 Time of Service: 11:14 Nutritional Consult ASSESSMENT: 69 year old female with Breast CA with mets to bone, presents with pulmonary effusion, uncontrolled pain. BMI wnl for age. Following regular meal plan with minimal intake. At high nutritional risk but does not want aggressive nutrition therapy. Hospice consult pending. will follow weight and po intake trends. Time Spent in Nutritional Counseling and Treatment: 0 time spent face to face
--- NOTE | 2019-06-11 11:33 | W.SURGCON ---
Date of service: 06/11/19 Time of Service: 11:33 Assessment and Plan Assessment and plan (1) Pleural effusion: Status: Acute Assessment and plan: We discussed the options of left thoracentesis or observation. She does seem symptomatic and at least one attempt would be reasonable. Her SOB is probably multifactorial but hopefully she will note improvement. The risks of infection, bleeding, pneumothorax with need for chest tube and recurrence discussed. She is not yet anticoagulated due to concerns of brain mets. Will plan to send fluid for cytology. She agrees to proceed. History of Present Illness Narrative: This patient was admitted yesterday with a new diagnosis of PE and recently diagnosed metastatic breast cancer. She had a large left pleural effusion noted on chest CT and X ray. She reports some difficulty taking a deep breath and feeling SOB with talking. Does not walk much due to right thigh/hip pain. Review of Systems All systems reviewed & are unremarkable except as noted in HPI and below PFSH Family History Mother , age 83 Hypertension Stroke Father , age 85 Heart disease Sister , age 64 Leukemia Sister , age 83 Stroke Sister No problems noted. Brother , age 84 Heart disease Brother No problems noted. Son No problems noted. Son No problems noted. Daughter No problems noted. Daughter No problems noted. Social History Smoking/Tobacco Use Status: Never Alcohol Intake: current Alcohol Intake frequency: a few times a week Alcohol type: wine Drug use: Never Substance use type: does not use Caregiver/Support person: Yes Household members: spouse Housing: house Do you need help understanding health information?: Rarely Pets and animals: No Sexually active: No Do you think of yourself as: straight/heterosexual Current gender identity: decline to answer What is your relationship status?: How often do you talk on the phone with friends or family?: twice per week How often do you get together with friends or relatives?: once per week How often do you attend latter day or confucianism services?: decline to answer Do you belong to any clubs or organized social groups?: yes Panel score (0-1 are the most socially isolated patients): 3 What type of physical activity do you participate in: walking and other Duration: 15-30 minutes/day Frequency: daily Leann/Confucianist: Buddhism Special leann needs: No Seatbelt use: always 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 Do you feel safe at home: Yes Do you feel safe in your relationship?: Yes Exam Narrative Exam Narrative: Slightly rambling conversation Lungs reveal decreased breath sound up to mid left lung field with dullness to percussion here Heart RRR Results Last Vital Signs Temp 97.2 F L 06/11/19 07:25 Pulse 79 06/11/19 07:25 Resp 12 06/11/19 09:20 BP 122/69 06/11/19 07:25 Pulse Ox 96 06/11/19 09:10 Labs Result diagrams: 06/11/19 06:08 06/11/19 06:08 Labs: Laboratory Results - last 24 hr 06/10/19 06/10/19 06/10/19 12:55 12:55 12:55 WBC 10.91 H RBC 3.96 L Hgb 12.5 Hct 36.4 MCV 91.9 MCH 31.6 MCHC 34.3 RDW 13.9 Plt Count 259 MPV 10.0 Immature Gran % See Differential Neutrophils % 77.0 Band Neutrophils % 1.0 Lymphocytes % 11.0 Atypical Lymphs % 2 Monocytes % 5.0 Eosinophils % 1.0 Basophils % 0.0 Metamyelocytes % 1.0 Myelocytes % 2.0 Absolute Neutrophils 8.51 H Absolute Lymphocytes 1.42 Absolute Monocytes 0.55 Absolute Eosinophils 0.11 Absolute Basophils 0.00 Differential Comment Manual differential RBC Morphology Normal PT 11.2 H INR 1.1 APTT 23.9 D-Dimer 6190 H Sodium 129 L Potassium 3.4 L Chloride 90 L Carbon Dioxide 35.0 H Anion Gap 4.0 BUN 25 H Creatinine 0.94 Estimated GFR/1.73 m2 58.70 Glucose 104 Calcium 8.5 Magnesium 2.1 Total Bilirubin 0.5 AST 30 ALT 35 Alkaline Phosphatase 171 H Troponin I < 0.05 NT-Pro-B Natriuret Pep 663 Total Protein 7.0 Albumin 3.2 L 06/11/19 06/11/19 06:08 06:08 WBC 9.40 RBC 3.89 L Hgb 12.3 Hct 36.5 MCV 93.8 MCH 31.6 MCHC 33.7 RDW 14.1 Plt Count 267 MPV 10.3 Immature Gran % Neutrophils % Band Neutrophils % Lymphocytes % Atypical Lymphs % Monocytes % Eosinophils % Basophils % Metamyelocytes % Myelocytes % Absolute Neutrophils Absolute Lymphocytes Absolute Monocytes Absolute Eosinophils Absolute Basophils Differential Comment RBC Morphology PT INR APTT D-Dimer Sodium 131 L Potassium 3.9 Chloride 95 L Carbon Dioxide 33.0 H Anion Gap 3.0 BUN 19 H D Creatinine 0.83 Estimated GFR/1.73 m2 >= 60.00 Glucose 95 Calcium 8.4 L Magnesium Total Bilirubin AST ALT Alkaline Phosphatase Troponin I NT-Pro-B Natriuret Pep Total Protein Albumin
[2019-06-11] MEDS: Patch Removal 1 EACH TP (11:35)
--- NOTE | 2019-06-11 12:16 | DI.US_ITS ---
EXAM: US EXTREMITY VENOUS BI CLINICAL HISTORY: PE, R/O DVT TECHNIQUE: Bilateral lower extremity venous ultrasound performed using grayscale, color-flow, and sp ectral Doppler analysis. COMPARISON: No previous for comparison. FINDINGS: The right common femoral, femoral and popliteal veins demonstrate normal compressibility, augmentatio n, and color Doppler. No evidence of a right DVT. The saphenofemoral junction is unremarkable. No evidence of a popliteal cyst on the right. The posterior tibial veins are patent. The left common femoral, femoral and popliteal veins demonstrate normal compressibility, augmentation , and color Doppler. There is hypoechoic thrombus seen in the mid left posterior tibial vein. The s aphenofemoral junction is unremarkable. There is no evidence of a popliteal cyst on the left. IMPRESSION: Right: Negative for DVT Left: Thrombus seen in the mid posterior tibial vein.
--- NOTE | 2019-06-11 12:41 | PHARADMIT ---
Addendum entered by Velia Crane 06/14/19 16:40: Pharmacy Note Subjective recurrence suspected, but not yet confirmed with biopsy. multiple samira mets on imaging per progress note Objective BP-159/73 Na-132(down) WBC-14 Assessment IV morphine stopped PO hydromorphone ordered pts own Serevent inhaler still not brought in Plan possible discharge tomorrow Addendum entered by Roxy Wang 06/13/19 13:16: Pharmacy Note Subjective Objective BP 144/73, afebrile, lytes good, WBC up 16.21 (steroids), BG 103, pain zero Micro fluid from thoracentesis: unsure how to interpret but WBC high 685-see other body source for results Assessment Symbicort MDI started this morning Serevent from home is not available...family never filled @ pharmacy Lovenox dose is 70mg SQ Q12h for acute PE Lisinopril/HCTZ was not ordered due to contrast...watch for restart? Is using some OxyIR and MS IVP...bowel movements are soft Prednisone dose is 60mg daily Plan Palliative care patient, watch Micro results, pain control, BP control Addendum entered by Alonzo Purdy III 06/12/19 14:32: Pharmacy Note Subjective Head CT did not reveal brain mets, MD started Lovenox DVT proph. (Has TEDS & SCDs) Patient had palliative consult: Not a candidate for hospice and wants a biopsy to determine future course. Pain controlled by Fentanyl Patch increase to 62mcg and addition of Prednisone Pleural effusin tapped yesterday and cultures obtained. Objective VS-OK Na-134 K+3.9 H&H-11.2/34 Plts-255 Had BM today Assessment MD has re-started BP meds, inhalers and eye drops. (Awaiting Serevent from home) Plan Label Serevent once obtained. Watch for culture results. Original Note: Admission Pharmacy Clinical Review PE, PLUERAL EFFUSION in Patient w/BREAST CANCER w/METS (Brain, Lungs, Bone ???) Code Status DNR/DNI Current Weight Wgt-72.8 kg Renally Cleared and Narrow Therapeutic Index Meds CrCl~51.4 mL/min Meds-OK QTc Value / Action Taken QTc-447 na BP Control, Fever BP-122/69 Tmax-36.4C Electrolytes reviewed Na-131 K+3.9 Mag-2.1 DVT Prophylaxis No- not in the poresence of Brain mets Opiate Usage / Scheduled Bowel Regimen Ordered Yes Yes Plt/SCr for Heparin / Enoxaparin Plts-267 SCr-0.83 INR for Warfarin inr-1.1 H/H stable, WBC/Bands H&H-12.3/36.5 WBC-9.40 Antibiotic appropriateness none Cultures and Sensitivities none Surgical ABX d/c within 24 hr na DM control / Insulin Dosing BG-95 Heart Failure (Check EF%) (CHAPIS's, B-Block, Diuretics) none IV to PO Switch no Home Meds Reviewed Yes Home Meds Not Ordered Norvasc, Arimidex, Combigan, Tums, Selwyn seed, VitD, Levothyroxine, Hyzaar, Toprol-XL, Travatan, Serevent Comments
--- NOTE | 2019-06-11 13:29 | PAPNONF_PTH ---
PATIENT: NAOMI SOUZA LOC: U#:[id number] AGE/SX: 69/F ROOM: [id number] RE06/11/[address]: Melanie Davies : 1950 BED: A DIS: 06/15/2019 SPEC #: [id number] RECD: 06/11/19 18:20 STATUS: ASIA REQ #: [id number] DAMARIS: 06/11/19 13:[address]: Melanie Davies DEPT: [facility] Cytology RECD BY: Sweetie Banks ENTERED: 06/11/19 18:22 SP TYPE: PAPINESF ROSANGELA DR: MD Mago Gonzalez MD Mary O'Leary Ready, MD Tissues: 1 - BODY FLUID CYTO(NOT S/U/N/EM)[facility] Procedures: BODY FLUID CYTO(NOT SPU/UR/NIP/ENDOM)[facility] IMMUNOPEROXIDASE STAIN Comments: [id number] (TOTAL VOLUME = 40 ml's, SENT FRESH)
[2019-06-11 14:18] LABS: Clarity CLEAR; Source PLEURAL
[2019-06-11 14:19] LABS: Nucleated Cells 685 /MM3 (0-0)
[2019-06-11 14:24] LABS: Source: Pleural; pH Body Fluid 7.5
--- NOTE | 2019-06-11 14:27 | CHAPLAIN ---
Fay was sitting up in her chair when I visited. Her nurse and STRIP M[employer] OPERATOR had been looking through her sheets for a medical patch that came off of Fay. Fay said it was just one more thing in what has already been a difficult day. She said she has a great deal of information in her heard and it's hard for her to remember questions she wants to ask and absorb everything. She is worried about her Jeanmarie, and said she has had to interpret things for him. Jeanmarie's sister, who teaches psychology at [employer] is on her way over, and Fay believes she will be a support for Jeanmarie. Their two daughters are arriving soon. Fay said at first she thought she wanted to go home for [place], but now she's thinking it may be easier if she stays here and family members visit here. This would also allow her daughters to have some time at home with Jeanmarie, she said. Fay recently received a lot of information about the return of her cancer, and will be meeting with Dr. Gee later today for a palliative care consultation. When I asked Fay what she usually does to relax, or what activities are relaxing for her, she said she used to read and do crafts, but her has cataracts in one eye and doesn't see well with the other so reading and crafts are difficult for her. She's started some books that she would like to finish. I suggested someone could read them to her. Fay is [employer]. I offered a prayer with her and let he know that Fr. Rey will likely be in this afternoon if she is interested in a visit with him.
[2019-06-11 14:31] LABS: Mononuclear Cells 90 % (0-0); Polynuclear Cells 10 % (0-0)
--- NOTE | 2019-06-11 14:39 | DI.RAD_ITS ---
EXAM: XR PORTABLE CHEST AP INDICATION: Left thoracentesis. COMPARISON: XR CHEST 2V PA AND LATERAL from 06/10/2019 TECHNIQUE: 2D digital imaging was performed. FINDINGS: The heart size and pulmonary vasculature are within normal limits. There has been interval decrease in size of the left pleural effusion following thoracentesis. No pneumothorax is identified. No foc al consolidating infiltrates are seen. Atelectatic changes are seen in the lung bases. IMPRESSION: Interval decrease in the left pleural effusion following thoracentesis. No pneumothorax.
[2019-06-11] MEDS: fentaNYL 12 MCG PATCH TD (15:28)
--- NOTE | 2019-06-11 20:54 | PCNE_ITS ---
Date of service: 06/11/19 Time of Service: 16:54 History of Present Illness History of Present Illness Chief Complaint: metastatic cancer, presumed breast cancer Narrative: Fay is a 69-year-old woman who in September 2018 was told that there was no evidence of metastasis from her previously diagnosed breast cancer. She was in her usual state of health and then started developing more pain and problems and was eventually found to have widely metastatic cancer. There has not been an official diagnosis this far is biopsy-proven cancer from uncertain source although presumed breast since she has had this in the past. She has been unable to get to interventional radiology for biopsy due to feeling so poorly. She is now in the hospital because of uncontrolled pain. During the course of the work-up she was found to have a PE. They are unable to do anticoagulation at this time until they are certain that she does not have metas tatic brain lesions. She had a CT scan a day ago but it was noncontrast. She is unable to have an MRI because of clips from an aneurysm from years ago. She states that her oncologist has started some treatment but really needs the biopsy to better target the treatment. She feels a little bit in limbo because she does not know exactly what it is that they are battling. At the same time she states that she is exhausted from the work-up to date. She feels that there have been many people in here, all with good intentions, but very exhausting. (At this point I asked her if she would like me to return another date. She said no.) She had met with Melissa Rogers for palliative care in the past. She really really enjoys her talks with Dr. Rogers and gets a lot out of their time together. She is anxious to meet with her again. She understands that I am here today because Dr. Rogers is on vacation. She is tired and feels that if she goes home she will be wanting to do the cooking cleaning etc. This is not possible with how she feels. She would rather have her children visit her in the hospital at this time rather than try to go home and become even more exhausted. Her Jeanmarie is her caregiver. She says sometimes so much is happening during the daytime with her that he does not even have a chance to go grocery shopping. She is confused about next steps. At the same time she does not feel that she has long to live and that she does not want to burden her family with a slow painful . She has had hallucinations which have led the medical team at [facility] to be mark rned about metastatic brain lesions. At the same time none of the hallucinations were present prior to the fentanyl patch. She is now on 62 mcg patch. She feels that it is doing well as far as pain control. Consults Consult date: 06/11/19 Requesting physician: Melanie Davies Assessment and Plan Assessment and plan (1) Metastatic breast cancer: Status: Chronic Assessment and plan: Currently Fay and I talked about her disease. She knows that she has cancer in many places but still cannot grasp that this is probably metastatic breast cancer. She feels that she will on Claudia. She is resolved to the fact that she will never go home again. She states she would rather be in the hospital because it will be more restful and not as much will be expected of her. She is concerned that if she goes home she is going to want to clean, make meals, and be the drum filler to her family who is arriving tomorrow night. She knows that this is no longer possible so would rather stay in the hospital and have them visit. She is interested in hospice but does not feel that going home is the best option for her She came to the realization a few hours ago that she was tired of the fight and just wanted to relax and let go. She does not want visitors who do not fill her with mar such some extended family. She has some [id number]'s that she is not to fond of, appreciates them, but does not want to have to deal with them at this time. She is tired. Her Jeanmarie was there this entire time. He let her make her own decisions but yet was there to be supportive. Due to her overwhelming fatigue, and just beginning to get her pain under better control, as well as many many medical personnel coming in and out all day long, we decided that I would come back in the morning and we would talk some more I have spent more than 50% of time in counseling with this patient. (2) Pulmonary embolism: Status: Chronic (3) Pleural effusion: Status: Acute Review of Systems Constitutional Constitutional: Reports body ache(s), Reports daytime sleepiness, Reports difficulty sleeping, Reports malaise, Reports poor appetite, Reports weakness and Reports weight loss Eyes Eyes: Reports system reviewed and no additional complaints, except as docu ENT Ears, Nose, Mouth, and Throat: Reports system reviewed and no additional complaints, except as docu Cardiovascular Cardiovascular: Reports system reviewed and no additional complaints, except as docu, Reports dyspnea and Reports dyspnea on exertion Respiratory Respiratory: Reports dyspnea and Reports dyspnea on exertion Comments: new PE Genitourinary Comments: hernandez inserted Musculoskeletal Comments: everywhere aches. Unable to ambulate and must use a wheelchair Neurologic Neurologic: Reports confusion and Reports weakness Psychiatric Psychiatric: Reports anxiety, Reports confusion, Reports depression, Reports difficulty concentrating, Reports hopelessness and Reports hallucinations [facility] Medical History (Updated 06/11/19 @ 18:03 by Melissa Proctor MD) Aneurysm Asthma Blind right eye (Acute) Dyspnea (Acute) Generalized weakness (Acute) History of cerebral aneurysm (Acute) HTN (hypertension) Malignant neoplasm of breast (female), unspecified site (Acute 08/28/12) INTERMEDIATE GRADE INTRADUCTAL CARCINOMA OF THE LEFT BREAST S/P MASTECTOMY AND AXILLARY NODE DISSECTION. Adjuvant RX and radiation Metastatic breast cancer (Chronic) to spine and other bones, lung, lymph nodes Neoplasm, breast Follow-up with [facility] this fall. Palliative care patient (Acute) Pulmonary embolism (Chronic) Recurrent breast cancer (Chronic) passed her 5 year cure date in September 2018 Unintentional weight loss (Acute) Surgical History Abdominal hysterectomy (~1998) ovaries remain Colonoscopy - IV Sedation (05/21/16) Family History Mother , age 83 Hypertension Stroke Father , age 85 Heart disease Sister , age 64 Leukemia Sister , age 83 Stroke Sister No problems noted. Brother , age 84 Heart disease Brother No problems noted. Son No problems noted. Son No problems noted. Daughter No problems noted. Daughter No problems noted. Social History Smoking/Tobacco Use Status: Never Alcohol Intake: current Alcohol Intake frequency: a few times a week Alcohol type: wine Drug use: Never Substance use type: does not use Caregiver/Support person: Yes Household members: spouse Housing: house Do you need help understanding health information?: Rarely Pets and animals: No Sexually active: No Do you think of yourself as: straight/heterosexual Current gender identity: decline to answer What is your relationship status?: How often do you talk on the phone with friends or family?: twice per week How often do you get together with friends or relatives?: once per week How often do you attend buddhism or sikh services?: decline to answer Do you belong to any clubs or organized social groups?: yes Panel score (0-1 are the most socially isolated patients): 3 What type of physical activity do you participate in: walking and other Duration: 15-30 minutes/day Frequency: daily Leann/Methodist: Rastafari Special leann needs: No Seatbelt use: always Drive intox or ride w/intox freight 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 Not surprised at current findings. Knows she is very sick. Pain is uncontrolled, intolerable. Very winded with minimal exertion, weak,. Exam Narrative Exam Narrative: FINDINGS: Brain: Mildly prominent ventricles and cortical sulci. Old right posterior parietal and left frontal lobe infarct. Midline shift: Anterior midline aneurysmal clip. Ventricles: Unremarkable. No ventriculomegaly. Bones/joints: There are no prior films available for comparison. Patient has had a prior right frontal craniotomy with an aneurysmal clips in place. There is no evidence for bone metastases. Sinuses: Visualized sinuses are unremarkable. No fluid levels. Mastoid air cells: Visualized mastoid air cells are well aerated. Soft tissues: Unremarkable. Vasculature: No IV contrast was administered to evaluate for metastatic lesions. IMPRESSION: 1. Cannot rule out brain metastases without IV contrast. Prior studies would be helpful for further evaluation. 2. Prior right frontal craniotomy with aneurysmal clips in place. 3. 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 Const General: cooperative and no acute distress Nutritional Appearance: average body habitus Orientation: oriented x3 Eyes Alignment and Position: alignment normal Periorbital: periorbital findings normal Eyelids: eyelids normal Pupils: pupils not ERRL Resp Effort & Inspection: able to speak in complete sentences Other: Not requiring supplemental oxygen for comfort Psych Speech and Movement: speech clear and restless Mood: irritable mood Attitude: cooperative Thought Process: loose association Insight: fair Judgment: fair Results Last Vital Signs Temp 99.0 F 06/11/19 15:36 Pulse 94 H 06/11/19 15:36 Resp 20 06/11/19 15:36 BP 129/64 06/11/19 15:36 Pulse Ox 96 06/11/19 15:36 Labs Result diagrams: 06/12/19 06:00 06/12/19 06:00 Labs: Laboratory Results - last 24 hr 06/11/19 06/11/19 06/11/19 06:08 06:08 13:29 WBC 9.40 RBC 3.89 L Hgb 12.3 Hct 36.5 MCV 93.8 MCH 31.6 MCHC 33.7 RDW 14.1 Plt Count 267 MPV 10.3 Sodium 131 L Potassium 3.9 Chloride 95 L Carbon Dioxide 33.0 H Anion Gap 3.0 BUN 19 H D Creatinine 0.83 Estimated GFR/1.73 m2 >= 60.00 Glucose 95 Calcium 8.4 L Fluid Source Pleural Fluid Color Yellow Fluid Clarity Clear Fluid pH Fluid WBC 685 H Fluid Mononuclear Cell 90 H Fl Polymorphonucl Cell 10 H 06/11/19 13:29 WBC RBC Hgb Hct MCV MCH MCHC RDW Plt Count MPV Sodium Potassium Chloride Carbon Dioxide Anion Gap BUN Creatinine Estimated GFR/1.73 m2 Glucose Calcium Fluid Source Pleural Fluid Color Fluid Clarity Fluid pH 7.5 Fluid WBC Fluid Mononuclear Cell Fl Polymorphonucl Cell
[2019-06-11 21:40] LABS: Albumin, Body FLuid 2.1 g/dL (See Note); Glucose, Fluid 116 mg/dL (See Note)
[2019-06-11] MEDS: Travoprost 0.004% Ophth Sol 2.5 ML BTL 1 ML OU (22:26)
[2019-06-12] MEDS: Normal Saline 1,000 ML 75 ML IV (02:10)
[2019-06-12 06:53] LABS: HGB 11.2 g/dL (12.0-15.5); Mean Corp. HGB Concentration 32.9 g/dL (32.0-36.0); Mean Corpuscular Hemoglobin 31.2 pg (27.0-33.0); Mean Corpuscular Volume 94.7 fL (80-95); Mean Platelet Volume 9.9 fL (8.0-11.0); Platelet Count 255 x1000/uL (130-400); RBC 3.59 m/cumm (4.00-5.20); RBC Distribution Width 14.2 % (11.7-14.6); White Blood Cell Count 8.86 k/cumm (4.4-10.8)
[2019-06-12 06:55] LABS: Anion Gap 3.9 mmol/L (3-11); BUN 15 mg/dL (7-18); CO2 32.1 mmol/L (21.0-32.0); CREATININE 0.76 mg/dL (0.55-1.02); Chloride 98 mmol/L (98-107); Glucose 111 mg/dL (74-106); Magnesium 2.1 mg/dL (1.8-2.4); Potassium 3.9 mmol/L (3.5-5.1); Sodium 134 mmol/L (136-145)
[2019-06-12 08:26] VITALS: BP 147/70; PULSE 89; RESP 20; TEMP 36.6; O2SAT 91
[2019-06-12] MEDS: Polyethylene Glycol 3350 17 GM PACKET PO (08:59)
[2019-06-12] MEDS: Metoprolol CR 50 MG TABCR PO (10:13)
[2019-06-12] MEDS: amLODIPine 5 MG TAB PO (10:13)
[2019-06-12] MEDS: predniSONE 20 MG TAB 60 MG PO (10:13)
--- NOTE | 2019-06-12 10:16 | ROE_ITS ---
REPORT OF OPERATIVE PROCEDURE DATE OF PROCEDURE June 11, 2019 PREOPERATIVE DIAGNOSIS Left pleural effusion. POSTOPERATIVE DIAGNOSIS Left pleural effusion. PROCEDURE Left thoracentesis. SURGEON Sara Chin M.D. ANESTHESIA Local. INDICATIONS This is a 69-year-old woman with recently diagnosed metastatic breast cancer. She presented to the ER yesterday with shortness of breath and was diagnosed with a pulmonary embolism. She also has a large left pleural effusion. This is symptomatic. PROCEDURE The patient was placed in a seated position leaning slightly forward on a padded table. Ultrasound wa s used to identify the location of the effusion on the left along with percussion. The skin here was cleansed with ChloraPrep and a sterile drape applied. The skin was infiltrated with local anesthetic and then the intercostal and pleural regions, also anesthetized. I was able to aspirate with the inje ction needle, demonstrating proper location. A small incision was made in the skin and the thoracente sis needle advanced while aspirating. Once the pleural fluid was aspirated the catheter was threaded over the needle into the pleural space and the needle removed. 60 cc of clear yellowish fluid was re moved and sent to pathology. The catheter was then attached to the vacuum canister and an additional 400 cc removed. The catheter was then withdrawn and a Band-Aid applied. She tolerated the procedure w ell with stable vital signs and saturations throughout. A post procedure chest film has been ordered. CC: Mago Velez MD
--- NOTE | 2019-06-12 10:55 | DI.CT_ITS ---
EXAM: CT HEAD WO/W CLINICAL HISTORY: metastatic cancer, suspicion for brain mets TECHNIQUE: The exam was performed according to the usual protocol. COMPARISON: CT HEAD WO from 06/10/2019 FINDINGS: There again seen areas of encephalomalacia in the left frontal lobe and the posterior right parietal lobe. No intracranial hemorrhage is present. No acute midline shift or mass effect is present. The re is a surgical clip anteriorly consistent with an aneurysm clipping. The ventricles are intact. T he basilar cisterns are patent. Following contrast administration no enhancing lesions are seen. There again seen findings of a right craniotomy. The visualized paranasal sinuses are clear as are t he mastoid air cells. IMPRESSION: No evidence of intracranial metastatic disease.
[2019-06-12] MEDS: Omnipaque 350 MG/ML 100 ML BTL IJ (11:05)
[2019-06-12] MEDS: Calcium Carbonate *TUMS* 500 MG CHEW 2000 MG PO (11:38)
[2019-06-12] MEDS: Levothyroxine 25 MCG TAB 37.5 MCG PO (11:39)
--- NOTE | 2019-06-12 11:46 | IN_ITS ---
Date of service: 06/12/19 Time of Service: 10:02 PT Notes Visit Reasons: PE, PLEURAL EFFUSION, BREAST CA W/ METS Physical Therapy Inpatient Initial Evaluation Date: 06/12/2019 Referring Doctor: Melanie Davies MD PT Orders: PT CONSULT: Limited ability Precautions: Fall. Standard. Activity as tolerated. Patient Profile/Admitting Diagnosis: Patient is a 69-year-old female who presented to the ED on 1222 with chief complaint of worsening shortness of b reath which made her lying flat in bed very difficult. Patient is currently on palate care and has been receiving treatment for recurrent breast cancer with known metastasis to the spine. Patient is diagnosed with pulmonary embolism, pleural effusion, malignant neoplasm of breast, uncontrolled pain, essential hypertension, and hallucination. PMHX: Medical History Aneurysm Asthma HTN (hypertension) Neoplasm, breast Follow-up with [facility] this fall. Surgical History Abdominal hysterectomy (~1998) ovaries remain Colonoscopy - IV Sedation (05/21/16) Social History/Home Situation: Patient lives with in a 1-floor house with 3-4 steps to enter with rails on both sides however they are far apart so she is able to hold onto one rail at a time. has been patient's caregiver since diagnosis of breast cancer. Patient is independent with all mobility ADL performance but receives home health services for 2 hours a week. Equipment Owned/DME: Wheelchair, FWW, two single-point canes, hand-held shower, grab bars Subjective: Patient reports pain in her low back and her hips which is aggravated by movement and weight bearing. She hopes to go home whenever she is medically safe to do so. Objective: General Observation: Patient seen sitting on recliner. IV access open on right UE. Mental Status: Alert and oriented x4 Pain: Complains of moderate pain on low back and bilateral hips. ROM: Right Upper Extremity: Shoulder Flexion WFL. Shoulder abduction WFL. Elbow flexion WFL. Wrist flexion WFL. Opening and closing of hand WFL. Left Upper Extremity: Shoulder Flexion WFL. Shoulder abduction WFL. Elbow flexion WFL. Wrist flexion WFL. Opening and closing of hand WFL. Right Lower Extremity: Hip flexion WFL. Hip abduction WFL. Knee flexion WFL. Ankle dorsiflexion WFL. Ankle plantarflexion WFL. Left Lower Extremity: Hip flexion WFL. Hip abduction WFL. Knee flexion WFL. Ankle dorsiflexion WFL. Ankle plantarflexion WFL. Strength: Right Upper Extremity: Shoulder flexors 4/5. Shoulder abductors 4/5. Elbow flexors 4/5. Elbow extensors 4/5. Human Resources Services Specialist strong. Left Upper Extremity: Shoulder flexors 4/5. Shoulder abductors 4/5. Elbow flexors 4/5. Elbow extensors 4/5. Human Resources Services Specialist strong. Right Lower Extremity: Hip flexors 4/5. Hip abductors 4/5. Knee flexors 4/5. Knee extensors 4/5. Ankle dorsiflexors 4/5. Ankle plantarflexors 4/5. Left Lower Extremity:Hip flexors 4/5. Hip abductors 4/5. Knee flexors 4/5. Knee extensors 4/5. Ankle dorsiflexors 4/5. Ankle plantarflexors 4/5. Sensation: Intact as to pain and pressure on bilateral lower extremities. Bed Mobility/Transfers: Rolling minimal assist Supine to sit minimal assist Sit to supine minimal assist Sit to stand minimal assist Stand to sit minimal assist Bed to chair minimal assist Chair to bed minimal assist Gait: Patient tolerated in room a short distance ambulation of up to 25 feet to transfer from recliner to the transport wheelchair on her way to testing. She required CGA with significantly reduced rachael due to pain complaint, step to gait pattern and asymmetric step length and height. Balance: Static Sitting: Normal Dynamic Sitting: Good Static Standing: Fair Dynamic Standing: Fair Special Tests: Mobility Limitations Standardized Measure [facility]-P[facility] 6 clicks Basic Mobility Inpatient Short Form: Raw Score: 18 CMS Score: 47% deficit Informed Consent/Education: Patient instructed in purpose of PT consult and plan of care. Assessment: Patient is a 69-year-old female with diagnoses of pulmonary embolism, pleural effusion, malignant neoplasm of breast, uncontrolled pain, essential hypertension, and hallucination. Patient presents with clinical signs and symptoms consistent with current/admitting diagnoses that have resulted to mobility limitations, gait instability, generalized weakness, and impairment of motor control as demonstrated by the following impairment level findings: 1. Decreased strength to B UE/LE major muscle groups 2. Impaired standing balance 3. Impaired activity tolerance Impairments are contributing to the following functional limitations: 1. Dependent bed mobility skills 2. Increased dependence with transfers 3. Inability to safely ambulate without assistive device and physical assistance 4. Increase completion time for mobility ADL performance 5. Increased fall risk 6. Inability to negotiate steps alone safely Patient is assessed as a 46287 high complexity based on the following: History: Patient is a 69-year-old female on palliative care who presented to the ED on 1222 with chief complaint of worsening shortness of breath which made her lying flat in bed very difficult. Patient is currently on palate care and has been receiving treatment for recurrent breast cancer with known metastasis to the spine. Patient is diagnosed with pulmonary embolism, pleural effusion, malignant neoplasm of breast, uncontrolled pain, essential hypertension, and hallucination. Examination: Demonstrable impairment in strength, balance, and activity tolerance with underlying impairments and functional limitations as documented above. Presentation: Evolving Decision Makin high complexity Goals: Goals X1 week 1. Supine-Sit independent 2. Sit-Supine independent 3. Sit-Stand independent 4. Stand-Sit independent 5. Bed-Chair independent 6. Chair-Bed independent 7. Independent gait on level surface with use of least restrictive device for at least 300 feet without report of pain nor dyspnea 8. Independent stair negotiation while holding onto bilateral rails for at least 10 steps without report of pain nor dyspnea 9. Independent with home exercise program 10. Good static and dynamic standing balance/tolerance Plan of Care/Treatment Plan: 1-2x/day, 7 days/week x 1 week. Plan of care has been reviewed with the BUILDING CLEANING SUPERVISOR providing the service under Physical Therapy direction. Initiate Physical Therapy intervention for strengthening, bed mobility, transfers, gait, stairs, balance training, use of assistive device. DISCHARGE RECOMMENDATIONS: Patient will benefit from home health PT services in order to potentially progress mobility level using front wheeled walker, assess home safety, identify additional equipment needs, and establish a functional maintenance program that will increase ability of patient to remain at home. TREATMENT CODE/TIME: 93515 x 28 minutes beginning at 10:02 AM. Thank you very much for this referral. Hien Dc PT, DPT, CLT [facility] [place], [place]
--- NOTE | 2019-06-12 13:00 | W.PALPGNOTE ---
Date of service: 06/12/19 Time of Service: 07:00 Assessment and Plan Assessment and plan (1) Recurrent breast cancer: Status: Chronic (2) Metastatic breast cancer: Status: Chronic Assessment and plan: Fay understands the importance of determining whether she should be anticoagulated or not. I did speak with the hospitalist and the plan is for CT scan with contrast to they can better make this decision. Fay is content to be in the hospital over Claudia. I will have care management talk to her about options for in-home care so that her is not as tired from the burdens of caregiving Fay is very concerned about her blood pressure and also her inhalers. She is asked her to bring in some inhalers for her so that she could use them. I passed on this information to the hospitalist so that they can order appropriate medications for her I did tell Fay that it is best if she lets [facility] staff administer her medications She was quite achy and wiggly today in bed she does benefit from physical therapy and this needs to continue At this point she is not a hospice candidate as she still wants a biopsy and then will decide whether to pursue treatment or not. I again stressed that her regular palliative doctor is Dr. Rogers. When she returns from vacation Dr. Rogers will be taking over Fay's care. I have spent more than 50% of time in counseling with this patient.. (3) Pulmonary embolism: Status: Chronic Subjective Subjective Interval history since last seen: Fay is sitting in bed watching the news when I entered. She looked much brighter and more peaceful. She states that she slept almost 8 hours. And feels very differently this morning. She had a good visit with a friend who is gone through cancer in the past. Both the friend and the friend's spouse are ready to help Fay and her as necessary. This was very comforting to [facility] has done a lot of thinking she is still anxious to get a biopsy to confirm and better determine course of treatment. She wants to know her options before she makes the choice of hospice or comfort measures. Her pain is under control. Her brain seems clear. She understands that she may need to have another CAT scan today to better determine whether she should be anticoagulated. She still wants to stay in the hospital for Claudia as she feels that that will be more restful and easier and everyone. We talked about where to stay, live etc. if her lifespan is measured in months rather than in days. Would she want to go to a senior care, a community correction, stay at home with hiring extra help etc. we talked about some of the different options that there were and generalized costs of these options. In the end she thought that going home and having help for her with taking care of her sounded like the most affordable and probably best option. We also discussed letting go of some of her concerns with housekeeping meal preparation etc. we talked about what is most important how to save her energy, etc. We also talked about time time is all she has. She needs to determine how she best wants to use this time. Exam Narrative Exam Narrative: Fay is looking much brighter today she seems relaxed content Const General: cooperative and comfortable Nutritional Appearance: average body habitus Orientation: oriented x3 Resp Effort & Inspection: normal respiratory effort and able to speak in complete sentences Objective Objective Clinical Data: Abnormal lab results 06/11/19 06/12/19 06/12/19 Range/Units 13:29 06:00 06:00 RBC 3.59 L (4.00-5.20) m/cumm Hgb 11.2 L (12.0-15.5) g/dL Hct 34.0 L (36.0-46.0) % Sodium 134 L (136-145) mmol/L Carbon Dioxide 32.1 H (21.0-32.0) mmol/L Glucose 111 H (74-106) mg/dL Calcium 8.0 L (8.5-10.1) mg/dL Fluid WBC 685 H (0-0) /MM3 Fluid Mononuclear Cell 90 H (0-0) % Fl Polymorphonucl Cell 10 H (0-0) % Vital Signs Temperature 97.9 F 06/12/19 08:26 Temperature Source Tympanic 06/12/19 08:26 Pulse 89 06/12/19 08:26 Pulse Rhythm Regular 06/12/19 08:35 Pulse 89 06/10/19 14:50 Respiratory Rate 20 06/12/19 08:26 Respiratory Effort Non-Labored 06/12/19 08:35 Respiratory Depth Normal 06/12/19 08:35 Respiratory Pattern Normal 06/12/19 08:35 Blood Pressure 147/70 H 06/12/19 08:26 Blood Pressure Mean 75 06/10/19 17:33 Blood Pressure Position Supine 06/10/19 11:52 Pulse Oximetry 91 L 06/12/19 08:26 Oxygen Delivery Method Room Air 06/11/19 23:07 Oxygen Flow Rate 0 06/11/19 23:07 Fraction of Inspired Oxygen (FIO2) 21 06/11/19 09:10 Pain Level 0 06/12/19 08:26 Intake & Output 06/11/19 06/12/19 06/12/19 23:59 11:59 23:59 Intake Total 475 / 475 650 / 650 Output Total 700 / 700 Balance 475 / -25 -50 / -50 Intake: IV 350 / 350 650 / 650 Oral 125 / 125 Output: Urine 700 / 700 Other: Urine Color Yellow Urine Appearance Clear Clear Stool Size Small Stool Characteristics Soft Laboratory Results WBC 8.86 k/cumm (4.4-10.8) 06/12/19 06:00 RBC 3.59 m/cumm (4.00-5.20) L 06/12/19 06:00 Hgb 11.2 g/dL (12.0-15.5) L 06/12/19 06:00 Hct 34.0 % (36.0-46.0) L 06/12/19 06:00 MCV 94.7 fL (80-95) 06/12/19 06:00 MCH 31.2 pg (27.0-33.0) 06/12/19 06:00 MCHC 32.9 g/dL (32.0-36.0) 06/12/19 06:00 RDW 14.2 % (11.7-14.6) 06/12/19 06:00 Plt Count 255 x1000/uL (130-400) 06/12/19 06:00 MPV 9.9 fL (8.0-11.0) 06/12/19 06:00 Immature Gran % See Differential 06/10/19 12:55 Neutrophils % 77.0 06/10/19 12:55 Band Neutrophils % 1.0 % 06/10/19 12:55 Lymphocytes % 11.0 06/10/19 12:55 Atypical Lymphs % 2 06/10/19 12:55 Monocytes % 5.0 06/10/19 12:55 Eosinophils % 1.0 06/10/19 12:55 Basophils % 0.0 06/10/19 12:55 Metamyelocytes % 1.0 % 06/10/19 12:55 Myelocytes % 2.0 % 06/10/19 12:55 Absolute Neutrophils 8.51 k/cumm (1.2-6.7) H 06/10/19 12:55 Absolute Lymphocytes 1.42 k/cumm (1.2-3.4) 06/10/19 12:55 Absolute Monocytes 0.55 k/cumm (0.11-0.7) 06/10/19 12:55 Absolute Eosinophils 0.11 k/cumm (0.0-0.7) 06/10/19 12:55 Absolute Basophils 0.00 k/cumm (0.0-0.2) 06/10/19 12:55 Differential Comment Manual differential 06/10/19 12:55 RBC Morphology Normal 06/10/19 12:55 PT 11.2 sec (9.3-11.0) H 06/10/19 12:55 INR 1.1 (0.9-1.1) 06/10/19 12:55 APTT 23.9 sec (21.0-31.4) 06/10/19 12:55 D-Dimer 6190 ng/mlFEU (<500) H 06/10/19 12:55 Sodium 134 mmol/L (136-145) L 06/12/19 06:00 Potassium 3.9 mmol/L (3.5-5.1) 06/12/19 06:00 Chloride 98 mmol/L (98-107) 06/12/19 06:00 Carbon Dioxide 32.1 mmol/L (21.0-32.0) H 06/12/19 06:00 Anion Gap 3.9 mmol/L (3-11) 06/12/19 06:00 BUN 15 mg/dL (7-18) 06/12/19 06:00 Creatinine 0.76 mg/dL (0.55-1.02) 06/12/19 06:00 Estimated GFR/1.73 m2 >= 60.00 (mL/min/1.73m2) 06/12/19 06:00 Glucose 111 mg/dL (74-106) H 06/12/19 06:00 Calcium 8.0 mg/dL (8.5-10.1) L 06/12/19 06:00 Magnesium 2.1 mg/dL (1.8-2.4) 06/12/19 06:00 Total Bilirubin 0.5 mg/dL (0.2-1.0) 06/10/19 12:55 AST 30 U/L (15-37) 06/10/19 12:55 ALT 35 U/L (14-59) 06/10/19 12:55 Alkaline Phosphatase 171 U/L (46-116) H 06/10/19 12:55 Troponin I < 0.05 ng/Ml (<0.06) 06/10/19 12:55 NT-Pro-B Natriuret Pep 663 pg/mL (<300) 06/10/19 12:55 Total Protein 7.0 g/dL (6.4-8.2) 06/10/19 12:55 Albumin 3.2 g/dL (3.4-5.0) L 06/10/19 12:55 Fluid Source Pleural 06/11/19 13:29 Fluid Source Pleural 06/11/19 13:29 Fluid Color Yellow 06/11/19 13:29 Fluid Clarity Clear 06/11/19 13:29 Fluid pH 7.5 06/11/19 13:29 Fluid WBC 685 /MM3 (0-0) H 06/11/19 13:29 Fluid Mononuclear Cell 90 % (0-0) H 06/11/19 13:29 Fl Polymorphonucl Cell 10 % (0-0) H 06/11/19 13:29 Fluid Glucose 116 mg/dL (See Note) 06/11/19 13:29 Fluid Albumin 2.1 g/dL (See Note) 06/11/19 13:29
--- NOTE | 2019-06-12 15:25 | W.PM.PROGNOT ---
Date of Service Date of service: 06/12/19 Time of Service: 15:25 Assessment and Plan Assessment and plan (1) Metastatic breast cancer: Status: Chronic Assessment and plan: Recurrence suspected, but not yet confirmed with biopsy. Multiple bony mets are seen in addition to lymphadenopathy. Brain mets have been ruled out with a CT of the head with contrast. Patient is not a candidate for an MRI due to a history of surgical clips for an aneurysm, not MRI safe. The patient is DNR/DNI, but still interested in further workup of her disease. Pleural fluid cytology is pending. She is not yet a candidate for hospice. Continue to follow with palliative care. (2) Pulmonary embolism: Status: Acute Assessment and plan: Start anticoagulation with lovenox. Provide lovenox teaching. 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 (4) Pleural effusion: Status: Acute Assessment and plan: s/p thoracenthesis 06/11/19 - improved. CXR post thoracenthesis ruled out pneumothorax. Pathology/cytology pending. ?malignant pleural effusion. (5) Uncontrolled pain: Status: Resolved Assessment and plan: Patient seems to be doing well on current doses of fentanyl patch and prednisone. Continue to work with PT. (6) GERD (gastroesophageal reflux disease): Status: Chronic Assessment and plan: PPI started. (7) Hypertension: Status: Chronic Assessment and plan: amlodipine and metoprolol resumed. hold losartan/hctz as received IV contrast. (8) DVT prophylaxis: Status: Acute Assessment and plan: Therapeutic lovenox (9) Discharge planning issues: Status: Acute Assessment and plan: DNR/DNI Palliative care on board. Care management to help with concerns re possible hospital bed and chair lift. Subjective Subjective Interval history since last seen: Ms Gaffney states that her pain is controlled today. She denies dizziness, chest pain, nausea, vomiting. She had a BM today. Shortness of breath is better. She was able to take a few steps with a walker and shower today. She is not yet a candidate for hospice, per Dr Gee, because she is still interested in having a biopsy/workup of her malignancy. The patient does not feel ready to go home because they still don't have a hospital bed and the patient can't climb the stairs at home. They are about to meet with care management. Exam Narrative Exam Narrative: General: very pleasant elderly female, A&Ox3, NAD HEENT: EOMI, MMM Heart: RRR, mildly tachycardic Lungs: coarse breath sound B, more so on the left, where there is crackling/diminished breat sounds at the base Abdomen: soft, nontender, nondistended Extremities: Trace edema BLE's, no c/c. Objective Objective Clinical Data: Abnormal lab results 06/12/19 06/12/19 Range/Units 06:00 06:00 RBC 3.59 L (4.00-5.20) m/cumm Hgb 11.2 L (12.0-15.5) g/dL Hct 34.0 L (36.0-46.0) % Sodium 134 L (136-145) mmol/L Carbon Dioxide 32.1 H (21.0-32.0) mmol/L Glucose 111 H (74-106) mg/dL Calcium 8.0 L (8.5-10.1) mg/dL Vital Signs Temperature 36.6 C 06/12/19 08:26 Temperature Source Tympanic 06/12/19 08:26 Pulse 89 06/12/19 08:26 Pulse Rhythm Regular 06/12/19 08:35 Pulse 89 06/10/19 14:50 Respiratory Rate 20 06/12/19 08:26 Respiratory Effort Non-Labored 06/12/19 08:35 Respiratory Depth Normal 06/12/19 08:35 Respiratory Pattern Normal 06/12/19 08:35 Blood Pressure 147/70 H 06/12/19 08:26 Blood Pressure Mean 75 06/10/19 17:33 Blood Pressure Position Supine 06/10/19 11:52 Pulse Oximetry 91 L 06/12/19 08:26 Oxygen Delivery Method Room Air 06/11/19 23:07 Oxygen Flow Rate 0 06/11/19 23:07 Fraction of Inspired Oxygen (FIO2) 21 06/11/19 09:10 Pain Level 0 06/12/19 08:26 Intake & Output 06/11/19 06/12/19 06/12/19 23:59 11:59 23:59 Intake Total 475 / 475 650 / 650 Output Total 700 / 1400 700 / 1400 Balance 475 / -25 -50 / -750 -700 / -750 Intake: IV 350 / 350 650 / 650 Oral 125 / 125 Output: Urine 700 / 1400 700 / 1400 Other: Urine Color Yellow Pale Yellow Urine Appearance Clear Clear Stool Size Small Small Stool Characteristics Soft Soft Formed Laboratory Results WBC 8.86 k/cumm (4.4-10.8) 06/12/19 06:00 RBC 3.59 m/cumm (4.00-5.20) L 06/12/19 06:00 Hgb 11.2 g/dL (12.0-15.5) L 06/12/19 06:00 Hct 34.0 % (36.0-46.0) L 06/12/19 06:00 MCV 94.7 fL (80-95) 06/12/19 06:00 MCH 31.2 pg (27.0-33.0) 06/12/19 06:00 MCHC 32.9 g/dL (32.0-36.0) 06/12/19 06:00 RDW 14.2 % (11.7-14.6) 06/12/19 06:00 Plt Count 255 x1000/uL (130-400) 06/12/19 06:00 MPV 9.9 fL (8.0-11.0) 06/12/19 06:00 Immature Gran % See Differential 06/10/19 12:55 Neutrophils % 77.0 06/10/19 12:55 Band Neutrophils % 1.0 % 06/10/19 12:55 Lymphocytes % 11.0 06/10/19 12:55 Atypical Lymphs % 2 06/10/19 12:55 Monocytes % 5.0 06/10/19 12:55 Eosinophils % 1.0 06/10/19 12:55 Basophils % 0.0 06/10/19 12:55 Metamyelocytes % 1.0 % 06/10/19 12:55 Myelocytes % 2.0 % 06/10/19 12:55 Absolute Neutrophils 8.51 k/cumm (1.2-6.7) H 06/10/19 12:55 Absolute Lymphocytes 1.42 k/cumm (1.2-3.4) 06/10/19 12:55 Absolute Monocytes 0.55 k/cumm (0.11-0.7) 06/10/19 12:55 Absolute Eosinophils 0.11 k/cumm (0.0-0.7) 06/10/19 12:55 Absolute Basophils 0.00 k/cumm (0.0-0.2) 06/10/19 12:55 Differential Comment Manual differential 06/10/19 12:55 RBC Morphology Normal 06/10/19 12:55 PT 11.2 sec (9.3-11.0) H 06/10/19 12:55 INR 1.1 (0.9-1.1) 06/10/19 12:55 APTT 23.9 sec (21.0-31.4) 06/10/19 12:55 D-Dimer 6190 ng/mlFEU (<500) H 06/10/19 12:55 Sodium 134 mmol/L (136-145) L 06/12/19 06:00 Potassium 3.9 mmol/L (3.5-5.1) 06/12/19 06:00 Chloride 98 mmol/L (98-107) 06/12/19 06:00 Carbon Dioxide 32.1 mmol/L (21.0-32.0) H 06/12/19 06:00 Anion Gap 3.9 mmol/L (3-11) 06/12/19 06:00 BUN 15 mg/dL (7-18) 06/12/19 06:00 Creatinine 0.76 mg/dL (0.55-1.02) 06/12/19 06:00 Estimated GFR/1.73 m2 >= 60.00 (mL/min/1.73m2) 06/12/19 06:00 Glucose 111 mg/dL (74-106) H 06/12/19 06:00 Calcium 8.0 mg/dL (8.5-10.1) L 06/12/19 06:00 Magnesium 2.1 mg/dL (1.8-2.4) 06/12/19 06:00 Total Bilirubin 0.5 mg/dL (0.2-1.0) 06/10/19 12:55 AST 30 U/L (15-37) 06/10/19 12:55 ALT 35 U/L (14-59) 06/10/19 12:55 Alkaline Phosphatase 171 U/L (46-116) H 06/10/19 12:55 Troponin I < 0.05 ng/Ml (<0.06) 06/10/19 12:55 NT-Pro-B Natriuret Pep 663 pg/mL (<300) 06/10/19 12:55 Total Protein 7.0 g/dL (6.4-8.2) 06/10/19 12:55 Albumin 3.2 g/dL (3.4-5.0) L 06/10/19 12:55 Fluid Source Pleural 06/11/19 13:29 Fluid Source Pleural 06/11/19 13:29 Fluid Color Yellow 06/11/19 13:29 Fluid Clarity Clear 06/11/19 13:29 Fluid pH 7.5 06/11/19 13:29 Fluid WBC 685 /MM3 (0-0) H 06/11/19 13:29 Fluid Mononuclear Cell 90 % (0-0) H 06/11/19 13:29 Fl Polymorphonucl Cell 10 % (0-0) H 06/11/19 13:29 Fluid Glucose 116 mg/dL (See Note) 06/11/19 13:29 Fluid Albumin 2.1 g/dL (See Note) 06/11/19 13:29 CT head with contrast: No evidence of intracranial metastatic disease. US venos BLE's: Right: Negative for DVT Left: Thrombus seen in the mid posterior tibial vein.
[2019-06-12] MEDS: Enoxaparin 80 MG/0.8 ML SYR 70 MG SC (16:23)
[2019-06-12 16:37] VITALS: BP 162/75; PULSE 86; RESP 18; TEMP 36.2; O2SAT 92
--- NOTE | 2019-06-12 17:18 | CMPROGNOTE_ITS ---
- If Service Date Differs Date of service: 06/12/19 Time of Service: 17:18 Care Management Progress Note S/O: Fay is lying in bed watching television when CM comes to meet with her. Her , daughter and son are present in the room. Fay expresses concerns over being discharged home too soon. She shares they live in a ranch style home that is one level but there are three steps to get into the house and currently she is unable to go up the stairs. Her also expresses co ncerns around caring for her at home. Fay is currently receiving Lovenox anticoagulation injections and her feels unable to manage those injections at home. CM discusses Home Health services with the family and they are agreeable to VNA PT, OT, and potentially nursing if Fay continues to require injections after discharge. Patient has a wheelchair, walker and commode at home, and she and her have identified a need for a hospital bed, a chair lift, and rails in the house. Family is advised that CM has already drafted the letter requesting the hospital bed and completed the order form and that as soon as the required documentation is obtained, the order form and letter will be sent to [facility]. Family is also advised that the chair lift and rails are things they will need to obtain as chair lifts and rails are not equipment covered under insurance. CM will continue to follow. A: Fay is a 69 year old female admitted to [facility] on 06/11/2019 for PE, ple ural effusion, and breast cancer with mets. P: Fay will be discharged home when medically cleared by provider. CM has coordinated a new referral to Home Health for PT and OT. If Fay still re quires anticoagulation injections after discharge, anticipate she will need a referral for Home Health nursing also. Fay will be transported home by family via private vehicle when ready. CM will continue to support patient, her family, and discharge planning needs.
[2019-06-12 18:05] LABS: Fluid Type LEFT PLEURAL FLUID; Lactate Dehydrogenase (LD), BF 101 U/L; Protein,Total, BF 3.7 g/dL
[2019-06-12] MEDS: oxyCODONE 15 MG TAB PO (18:48)
[2019-06-12] MEDS: Normal Saline Flush 10 ML SYR IVP (18:48)
[2019-06-12 23:48] VITALS: BP 158/73; PULSE 84; RESP 18; TEMP 36.6; O2SAT 93
[2019-06-13 03:45] VITALS: PULSE 86; RESP 17; O2SAT 96
[2019-06-13] MEDS: Enoxaparin 80 MG/0.8 ML SYR 70 MG SC ×2 (03:46→15:38)
[2019-06-13] MEDS: Normal Saline Flush 10 ML SYR IVP ×3 (03:53→13:41)
[2019-06-13] MEDS: Levothyroxine 25 MCG TAB 37.5 MCG PO (06:13)
[2019-06-13 07:58] VITALS: BP 144/73; PULSE 82; RESP 19; TEMP 36; O2SAT 5
[2019-06-13] MEDS: Pantoprazole 40 MG TABCR PO (08:10)
[2019-06-13] MEDS: Cholecalciferol (Vitamin D3) 1,000 UNIT TAB 2000 UNITS PO (08:10)
[2019-06-13] MEDS: predniSONE 20 MG TAB 60 MG PO (08:11)
[2019-06-13] MEDS: amLODIPine 5 MG TAB PO (08:13)
[2019-06-13] MEDS: Metoprolol CR 50 MG TABCR PO (08:13)
[2019-06-13 08:30] LABS: HCT 38.7 % (36.0-46.0); HGB 12.9 g/dL (12.0-15.5); Mean Corp. HGB Concentration 33.3 g/dL (32.0-36.0); Mean Corpuscular Hemoglobin 31.1 pg (27.0-33.0); Mean Corpuscular Volume 93.3 fL (80-95); Mean Platelet Volume 9.8 fL (8.0-11.0); Platelet Count 294 x1000/uL (130-400); RBC 4.15 m/cumm (4.00-5.20); RBC Distribution Width 14.1 % (11.7-14.6); White Blood Cell Count 16.21 k/cumm (4.4-10.8)
[2019-06-13 08:39] LABS: Anion Gap 5.3 mmol/L (3-11); BUN 14 mg/dL (7-18); CO2 34.7 mmol/L (21.0-32.0); CREATININE 0.67 mg/dL (0.55-1.02); Calcium 9.1 mg/dL (8.5-10.1); Chloride 97 mmol/L (98-107); Glucose 103 mg/dL (74-106); Magnesium 2.2 mg/dL (1.8-2.4); Potassium 4.6 mmol/L (3.5-5.1); Sodium 137 mmol/L (136-145)
[2019-06-13 08:40] LABS: Absolute Lymphocyte Count 1.62 k/cumm (1.2-3.4); Absolute Neutrophil Count 12.81 k/cumm (1.2-6.7); Diff Comment Manual Differential; RBC Morphology Normal
[2019-06-13] MEDS: Budesonide/Formoterol 160/4.5 6 GM 60 PUFF INH IH ×2 (09:40→20:04)
--- NOTE | 2019-06-13 16:11 | W.PM.PROGNOT ---
Date of Service Date of service: 06/13/19 Time of Service: 16:11 Assessment and Plan Assessment and plan (1) Metastatic breast cancer: Status: Chronic Assessment and plan: Recurrence suspected, but not yet confirmed with biopsy. Multiple bony mets on imaging in addition to lymphadenopathy. Brain mets ruled out with a CT of the head with contrast. Patient is not a candidate for an MRI due to a history of surgical clips for an aneurysm, not MRI safe. The patient is DNR/DNI, but still interested in further workup of her disease. Pleural fluid cytology is still pending. She is not yet a candidate for hospice. Continue to follow with palliative care. Work on pain control. (2) Pulmonary embolism: Status: Acute Assessment and plan: Continue lovenox. Continue with lovenox teaching. 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 (4) Pleural effusion: Status: Acute Assessment and plan: s/p thoracenthesis 06/11/19 - improved. Repeat CXR tomorrow to assess for reaccumulation. Pathology/cytology pending. ?malignant pleural effusion. (5) Uncontrolled pain: Status: Acute Assessment and plan: Increase fentanyl patch to 75 mcg/hr. Continue prednisone burst. Continue to work with PT. (6) GERD (gastroesophageal reflux disease): Status: Chronic Assessment and plan: Continue PPI (7) Hypertension: Status: Chronic Assessment and plan: amlodipine and metoprolol resumed. hold losartan/hctz as received IV contrast. (8) DVT prophylaxis: Status: Acute Assessment and plan: Therapeutic lovenox (9) Discharge planning issues: Status: Acute Assessment and plan: DNR/DNI Palliative care on board. Care management to help with concerns re possible hospital bed and ramp though the patient may now be able to navigate the stairs - will discuss with PT. Subjective Subjective Interval history since last seen: Ms Gaffney did require 4 doses of morphine (16 mg IV) in the last 24 hours. She was able to ambulate to the bathroom and back and did much better. She feels that perhaps she can navigate the stairs at home now. She denies dizziness, chest pain, complains of some shortness of breath with exertion, denies nausea/vomiting. She had diarrhea yesterday, but it has resolved. She would like to keep the hernandez catheter in at least 1 more night - she really wants to get some sleep. I observed some of her lovenox teaching. Exam Narrative Exam Narrative: General: very pleasant elderly female, A&Ox3, NAD, appears comfortable in bed HEENT: EOMI, MMM Heart: RRR, no m/r/g Lungs: coarse breath sound B, crackles L base; diminished at B bases Abdomen: soft, nontender, nondistended Extremities: Trace edema BLE's, no c/c. Objective Objective Clinical Data: Abnormal lab results 06/13/19 06/13/19 Range/Units 08:16 08:16 WBC 16.21 H D (4.4-10.8) k/cumm Absolute Neutrophils 12.81 H (1.2-6.7) k/cumm Absolute Monocytes 1.30 H (0.11-0.7) k/cumm Chloride 97 L (98-107) mmol/L Carbon Dioxide 34.7 H (21.0-32.0) mmol/L Vital Signs Temperature 36 C L 06/13/19 07:58 Temperature Source Tympanic 06/13/19 07:58 Pulse 82 06/13/19 07:58 Pulse Rhythm Regular 06/13/19 10:20 Pulse 89 06/10/19 14:50 Respiratory Rate 19 06/13/19 07:58 Respiratory Effort Non-Labored 06/13/19 10:20 Respiratory Depth Normal 06/13/19 10:20 Respiratory Pattern Normal 06/13/19 10:20 Blood Pressure 144/73 H 06/13/19 07:58 Blood Pressure Mean 75 06/10/19 17:33 Blood Pressure Position Supine 06/10/19 11:52 Pulse Oximetry 5 L 06/13/19 07:58 Oxygen Delivery Method Room Air 06/13/19 07:58 Oxygen Flow Rate 0 06/13/19 07:58 Fraction of Inspired Oxygen (FIO2) 21 06/11/19 09:10 Pain Level 6 06/13/19 13:41 Intake & Output 06/12/19 06/13/19 06/13/19 23:59 11:59 23:59 Intake Total 1750 / 2400 750 / 750 Output Total 1550 / 2250 350 / 950 600 / 950 Balance 200 / 150 400 / -200 -600 / -200 Intake: IV 1100 / 1750 Oral 650 / 650 740 / 740 Output: Urine 1550 / 2250 350 / 950 600 / 950 Other: Urine Color Yellow Pale Yellow Yellow Urine Appearance Clear Clear Clear Stool Size Small Smear Stool Characteristics Soft Soft Brown Brown Laboratory Results WBC 16.21 k/cumm (4.4-10.8) H D 06/13/19 08:16 RBC 4.15 m/cumm (4.00-5.20) 06/13/19 08:16 Hgb 12.9 g/dL (12.0-15.5) 06/13/19 08:16 Hct 38.7 % (36.0-46.0) 06/13/19 08:16 MCV 93.3 fL (80-95) 06/13/19 08:16 MCH 31.1 pg (27.0-33.0) 06/13/19 08:16 MCHC 33.3 g/dL (32.0-36.0) 06/13/19 08:16 RDW 14.1 % (11.7-14.6) 06/13/19 08:16 Plt Count 294 x1000/uL (130-400) 06/13/19 08:16 MPV 9.8 fL (8.0-11.0) 06/13/19 08:16 Immature Gran % See Differential 06/13/19 08:16 Neutrophils % 78.0 06/13/19 08:16 Band Neutrophils % 1.0 % 06/13/19 08:16 Lymphocytes % 10.0 06/13/19 08:16 Atypical Lymphs % 2 06/10/19 12:55 Monocytes % 8.0 06/13/19 08:16 Eosinophils % 0.0 06/13/19 08:16 Basophils % 0.0 06/13/19 08:16 Metamyelocytes % 2.0 % 06/13/19 08:16 Myelocytes % 1.0 % 06/13/19 08:16 Absolute Neutrophils 12.81 k/cumm (1.2-6.7) H 06/13/19 08:16 Absolute Lymphocytes 1.62 k/cumm (1.2-3.4) 06/13/19 08:16 Absolute Monocytes 1.30 k/cumm (0.11-0.7) H 06/13/19 08:16 Absolute Eosinophils 0.00 k/cumm (0.0-0.7) 06/13/19 08:16 Absolute Basophils 0.00 k/cumm (0.0-0.2) 06/13/19 08:16 Differential Comment Manual differential 06/13/19 08:16 RBC Morphology Normal 06/13/19 08:16 PT 11.2 sec (9.3-11.0) H 06/10/19 12:55 INR 1.1 (0.9-1.1) 06/10/19 12:55 APTT 23.9 sec (21.0-31.4) 06/10/19 12:55 D-Dimer 6190 ng/mlFEU (<500) H 06/10/19 12:55 Sodium 137 mmol/L (136-145) 06/13/19 08:16 Potassium 4.6 mmol/L (3.5-5.1) 06/13/19 08:16 Chloride 97 mmol/L (98-107) L 06/13/19 08:16 Carbon Dioxide 34.7 mmol/L (21.0-32.0) H 06/13/19 08:16 Anion Gap 5.3 mmol/L (3-11) 06/13/19 08:16 BUN 14 mg/dL (7-18) 06/13/19 08:16 Creatinine 0.67 mg/dL (0.55-1.02) 06/13/19 08:16 Estimated GFR/1.73 m2 >= 60.00 (mL/min/1.73m2) 06/13/19 08:16 Glucose 103 mg/dL (74-106) 06/13/19 08:16 Calcium 9.1 mg/dL (8.5-10.1) 06/13/19 08:16 Magnesium 2.2 mg/dL (1.8-2.4) 06/13/19 08:16 Total Bilirubin 0.5 mg/dL (0.2-1.0) 06/10/19 12:55 AST 30 U/L (15-37) 06/10/19 12:55 ALT 35 U/L (14-59) 06/10/19 12:55 Alkaline Phosphatase 171 U/L (46-116) H 06/10/19 12:55 Troponin I < 0.05 ng/Ml (<0.06) 06/10/19 12:55 NT-Pro-B Natriuret Pep 663 pg/mL (<300) 06/10/19 12:55 Total Protein 7.0 g/dL (6.4-8.2) 06/10/19 12:55 Albumin 3.2 g/dL (3.4-5.0) L 06/10/19 12:55 Fluid Source Pleural 06/11/19 13:29 Fluid Source Pleural 06/11/19 13:29 Fluid Color Yellow 06/11/19 13:29 Fluid Clarity Clear 06/11/19 13:29 Fluid pH 7.5 06/11/19 13:29 Fluid WBC 685 /MM3 (0-0) H 06/11/19 13:29 Fluid Mononuclear Cell 90 % (0-0) H 06/11/19 13:29 Fl Polymorphonucl Cell 10 % (0-0) H 06/11/19 13:29 Fluid Glucose 116 mg/dL (See Note) 06/11/19 13:29 Fluid Albumin 2.1 g/dL (See Note) 06/11/19 13:29
[2019-06-13] MEDS: fentaNYL 75 MCG PATCH TD (17:03)
[2019-06-13] MEDS: Patch Removal 1 EACH TP (17:04)
--- NOTE | 2019-06-13 18:37 | CMPROGNOTE_ITS ---
- If Service Date Differs Date of service: 06/13/19 Time of Service: 18:37 Care Management Progress Note S/O: Fay was sitting up in her chair when CM met with her. She was pleasant and receptive to conversing with CM. She talked for a long time about the course of her disease and the difficulty she is having in deciding whether or not to try to go home and possibly begin treatment again if indicated. She shared that she is scheduled to have a biopsy on 06/19/19 at [facility] to determine the type of cancer she has. She was told that it may be possible to treat the cancer and obtain some relief. Fay also talked about her and the difficulty he is having with the new diagnosis of metastatic disease and increased expectations and responsibilities it has placed on him. They are both [employer] but have not attended sabianism in some time. Fay states that a close friend recommended that they contact the [place] [employer] press operator and ask him to come and do a blessing. They are considering that. Fay also discussed the logistics of going home and the equipment and additions that might be needed to accommodate her current condition. She is unable to manage stairs and would need a hospital bed, which is being ordered. She is strongly opposed to having handicapped access to her front door because of the appearance and the message it will bring to [facility]. A: Fay is a 69 year old female admitted to [facility] on 06/11/2019 for PE, pleural effusion, and breast cancer with mets. P: Fay will be discharged home when medically cleared by provider. has coordinated a new referral to Home Health for PT and OT. If Fay still requires anticoagulation injections after discharge, anticipate she will need a referral for Home Health nursing also. Fay will be transported home by family via private vehicle when ready. CM will continue to support patient, her family, and discharge planning needs.
[2019-06-13 23:20] VITALS: BP 153/71; PULSE 81; RESP 18; TEMP 36.4; O2SAT 95
[2019-06-14] MEDS: Enoxaparin 80 MG/0.8 ML SYR 70 MG SC ×2 (04:55→15:42)
[2019-06-14] MEDS: Levothyroxine 25 MCG TAB 37.5 MCG PO (04:55)
[2019-06-14 07:10] LABS: HCT 37.7 % (36.0-46.0); HGB 12.6 g/dL (12.0-15.5); Mean Corp. HGB Concentration 33.4 g/dL (32.0-36.0); Mean Corpuscular Hemoglobin 31.1 pg (27.0-33.0); Mean Corpuscular Volume 93.1 fL (80-95); Mean Platelet Volume 10.1 fL (8.0-11.0); Platelet Count 310 x1000/uL (130-400); RBC 4.05 m/cumm (4.00-5.20); RBC Distribution Width 14.3 % (11.7-14.6)
[2019-06-14 07:20] VITALS: BP 159/73; PULSE 79; RESP 18; TEMP 36.6; O2SAT 96
[2019-06-14 07:29] LABS: Anion Gap 6.6 mmol/L (3-11); CO2 32.4 mmol/L (21.0-32.0); Calcium 8.7 mg/dL (8.5-10.1); Chloride 93 mmol/L (98-107); Glucose 96 mg/dL (74-106); Magnesium 2.1 mg/dL (1.8-2.4); Potassium 3.6 mmol/L (3.5-5.1); Sodium 132 mmol/L (136-145)
[2019-06-14 07:35] LABS: BUN 22 mg/dL (7-18)
--- NOTE | 2019-06-14 08:21 | DI.RAD_ITS ---
EXAM: XR PORTABLE CHEST AP INDICATION: follow up pleural effusions. COMPARISON: XR PORTABLE CHEST AP from 06/11/2019 TECHNIQUE: 2D digital imaging was performed. FINDINGS: Heart size and pulmonary vasculature are stable. There are persistent small pleural effusions which are unchanged compared to the prior examination. No focal consolidating infiltrates are seen. No pne umothorax is identified.
[2019-06-14] MEDS: Budesonide/Formoterol 160/4.5 6 GM 60 PUFF INH IH ×2 (08:25→20:02)
[2019-06-14] MEDS: Cholecalciferol (Vitamin D3) 1,000 UNIT TAB 2000 UNITS PO (08:25)
[2019-06-14] MEDS: Metoprolol CR 50 MG TABCR PO (08:25)
[2019-06-14] MEDS: Pantoprazole 40 MG TABCR PO (08:25)
[2019-06-14] MEDS: amLODIPine 5 MG TAB PO (08:26)
[2019-06-14] MEDS: predniSONE 20 MG TAB 60 MG PO (08:26)
--- NOTE | 2019-06-14 10:18 | PT.INTREAT ---
Date of service: 06/14/19 Time of Service: 09:21 PT Notes Visit Reasons: PE, PLEURAL EFFUSION, BREAST CA W/ METS Inpatient Physical Therapy Treatment Note [facility] Date: 06/14/2019 PRECAUTIONS: Fall. Standard. Activity as tolerated. SUBJECTIVE: Patient continues to report pain on low back and right hip. Patient initially complained of the sole of her right foot being prickly but was able to tolerate improved distance for this morning's session. Patient states that her catheter has been removed and wanted to make sure that she uses the bathroom before going out for a walk with PT. Patient denies headache, chest pain, and dizziness throughout session. OBJECTIVE: IV access remains in right UE. PAIN: 5/10 at rest and with weight bearing. Patient reported pain level going up to 6 towards the end of ambulation activity. BED MOBILITY/TRANSFERS Sit-stand: CGA Stand-sit: CGA Bed-Chair: CGA Chair-bed: CGA GAIT Assistive Device: Front wheeled walker Weight bearing: Full weightbearing Assist: CGA Distance: 80 feet x 2 Deviation: Step to gait pattern. Donna improved compared to day of evaluation. Reported pain on right hip and back that increased to 6/10 towards the end of gait activity. Step height and length continues to be asymmetric due to pain with weightbearing. No standing rests needed STAIRS: Patient was able to safely negotiate up and down three 4 inch steps and two 6 inch steps while holding onto bilateral rails requiring only standby assist by this PT and minimal verbal cues for step to gait pattern and safety techniques. Patient has bilateral rails but are far apart from each other. However she states that her will always be there to help her on the stairs on one side. ASSESSMENT: With assistance from on the stairs and with the use of a front wheeled walker for indoor ambulation, patient will be able to manage household distances without much difficulty. Of the use of a hospital bed will maximize independence with all bed mobility and sit to stand activities. Patient requires adequate time for rests in between activity in order to manage pain and improve tolerance. As long as pain is managed, patient is confident with doing mobility ADLs with the use of a front wheeled walker at this time and may manage well at home. PLAN: We will continue to skill patient twice daily while on admission. Patient will benefit from home health PT services in order to progress mobility level using least restrictive assistive ambulatory device, assess home safety, identify additional equipment needs, and establish a functional maintenance program that will increase ability of patient to remain at home. TREATMENT CODE/TIME: 00424 x 49 minutes beginning at 9:21 AM.
--- NOTE | 2019-06-14 11:40 | PGE_ITS ---
Date of Service Date of service: 06/14/19 Time of Service: 11:40 Assessment and Plan Assessment and plan (1) Malignant neoplasm of breast (female), unspecified site: Start date: 06/14/19 Start time: 11:44 Status: Acute Assessment and plan: Recurrence suspected, but not yet confirmed with bio psy. Multiple bony mets on imaging in addition to lymphadenopathy. Brain mets ruled out with a CT of the head with contrast. Pleural Fluid cytology pending Pain control trial with dilaudid 2 mg PO and fentanyl patch. Continue Steroid taper Possible d/c home tomorrow (2) Pulmonary embolism: Start date: 06/14/19 Start time: 11:46 Status: Acute Assessment and plan: Continue lovenox. Continue with lovenox teaching. (3) Uncontrolled pain: Start date: 06/14/19 Start time: 11:46 Status: Acute Assessment and plan: Cancer with mets to bone and lymph Continue fentanyl patch Trial PO Diladid 2 mg Steroid taper (4) Pleural effusion: Start date: 06/14/19 Start time: 11:47 Status: Acute Assessment and plan: s/p thoracenthesis 06/11/19 - improved. Repeat CXR with small bilateral pleural effusion Pathology/cytology pending. ?malignant pleural effusion. (5) Essential hypertension: Start date: 06/14/19 Start time: 11:48 Status: Acute Assessment and plan: Controlled with amlodpine and metoprolol. (6) DVT prophylaxis: Start date: 06/14/19 Start time: 11:49 Status: Acute Assessment and plan: Therapeutic lovenox (7) Chronic thrombosis of posterior tibial vein: Start date: 06/14/19 Start time: 11:49 Status: Acute Assessment and plan: while distal, it is now being treated in light of an acute PE. (8) GERD (gastroesophageal reflux disease): Start date: 06/14/19 Start time: 11:49 Status: Chronic Assessment and plan: Continue PPI (9) Discharge planning issues: Start date: 06/14/19 Start time: 11:49 Status: Acute Assessment and plan: DNR/DNI Palliative care on board. Ambulated stairs with PT today independently. Possible d/c home tomorrow Continue lovenox teaching above case discussed with Dr. Davies who is in agreement. Subjective Subjective Patient reports: no new complaints Interval history since last seen: Appears to be in better spirits today. Ambulatory with PT, per PT able to ambulate steps without assistance. Will trial PO dilaudid in addition to fentanyl patch with steroid taper for pain and possible d/c home tomorrow. Exam Narrative Exam Narrative: General: very pleasant elderly female, A&Ox3, NAD, appears in chair, just ambulated with PT, no SOB HEENT: EOMI, MMM Heart: RRR, no m/r/g Lungs: crackles L base; diminished at B bases Abdomen: soft, nontender, nondistended Extremities: Trace edema BLE's, no c/c. Const General: cooperative, comfortable and no acute distress Nutritional Appearance: average body habitus and thin Orientation: alert, awake and oriented x3 HENMT Head: normal to inspection Ears: hearing grossly impaired General nose exam: external nose normal Eyes Alignment and Position: alignment normal Periorbital: periorbital findings normal Eyelids: eyelids normal Pupils: pupils not ERRL EOM: EOM intact bilaterally Neck Neck: normal visual inspection Thyroid: thyroid normal Lymphatic: no lymphadenopathy noted Chest Chest: normal inspection of the chest Resp Effort & Inspection: normal respiratory effort, able to speak in complete sentences and decreased respiratory effort Auscultation: clear to auscultation bilaterally and diminished lung sounds on the left in the lower lung dubois Cardio Jugular venous pressure: no JVD Rate: regular rate Rhythm: regular rhythm Heart Sounds: S1 normal and S2 normal GI Inspection: normal to inspection Palpation: soft and no hepatosplenomegaly Percussion: normal to percussion General: deferred Back/Spine/Pelvis Back: no CVA tenderness Thoracic/Lumbar Spine: No thoracic and lumbar spine normal to inspection Skin General skin exam: no rashes or lesions noted Trauma: no lacerations or abrasions Neuro General: alert, awake and oriented x3 Cognition: normal cognition Extrem General: normal to inspection Left upper extremity: full ROM Psych Appearance: grossly normal Speech and Movement: speech clear and restless Mood: irritable mood Affect: normal affect Attitude: cooperative Thought Process: loose association Insight: fair Judgment: fair Objective Objective Clinical Data: Abnormal lab results 06/14/19 06/14/19 Range/Units 06:18 06:18 WBC 14.00 H (4.4-10.8) k/cumm Sodium 132 L (136-145) mmol/L Chloride 93 L (98-107) mmol/L Carbon Dioxide 32.4 H (21.0-32.0) mmol/L BUN 22 H D (7-18) mg/dL Vital Signs Temperature 36.6 C 06/14/19 07:20 Temperature Source Tympanic 06/14/19 07:20 Pulse 79 06/14/19 07:20 Pulse Rhythm Regular 06/14/19 08:20 Pulse 89 06/10/19 14:50 Respiratory Rate 18 06/14/19 07:20 Respiratory Effort Non-Labored 06/14/19 08:20 Respiratory Depth Normal 06/14/19 08:20 Respiratory Pattern Normal 06/14/19 08:20 Blood Pressure 159/73 H 06/14/19 07:20 Blood Pressure Mean 75 06/10/19 17:33 Blood Pressure Position Supine 06/10/19 11:52 Pulse Oximetry 96 06/14/19 07:20 Oxygen Delivery Method Room Air 06/14/19 07:20 Oxygen Flow Rate 0 06/14/19 07:20 Fraction of Inspired Oxygen (FIO2) 21 06/11/19 09:10 Pain Level 0 06/14/19 07:20 Intake & Output 06/13/19 06/13/19 06/14/19 11:59 23:59 11:59 Intake Total 750 / 990 240 / 990 850 / 850 Output Total 350 / 950 600 / 950 1200 / 1200 Balance 400 / 40 -360 / 40 -350 / -350 Intake: IV Oral 740 / 980 240 / 980 850 / 850 Output: Urine 350 / 950 600 / 950 1200 / 1200 Other: Urine Color Pale Yellow Yellow Yellow Urine Appearance Clear Clear Clear Stool Size Smear Stool Characteristics Soft Brown Laboratory Results WBC 14.00 k/cumm (4.4-10.8) H 06/14/19 06:18 RBC 4.05 m/cumm (4.00-5.20) 06/14/19 06:18 Hgb 12.6 g/dL (12.0-15.5) 06/14/19 06:18 Hct 37.7 % (36.0-46.0) 06/14/19 06:18 MCV 93.1 fL (80-95) 06/14/19 06:18 MCH 31.1 pg (27.0-33.0) 06/14/19 06:18 MCHC 33.4 g/dL (32.0-36.0) 06/14/19 06:18 RDW 14.3 % (11.7-14.6) 06/14/19 06:18 Plt Count 310 x1000/uL (130-400) 06/14/19 06:18 MPV 10.1 fL (8.0-11.0) 06/14/19 06:18 Immature Gran % See Differential 06/13/19 08:16 Neutrophils % 78.0 06/13/19 08:16 Band Neutrophils % 1.0 % 06/13/19 08:16 Lymphocytes % 10.0 06/13/19 08:16 Atypical Lymphs % 2 06/10/19 12:55 Monocytes % 8.0 06/13/19 08:16 Eosinophils % 0.0 06/13/19 08:16 Basophils % 0.0 06/13/19 08:16 Metamyelocytes % 2.0 % 06/13/19 08:16 Myelocytes % 1.0 % 06/13/19 08:16 Absolute Neutrophils 12.81 k/cumm (1.2-6.7) H 06/13/19 08:16 Absolute Lymphocytes 1.62 k/cumm (1.2-3.4) 06/13/19 08:16 Absolute Monocytes 1.30 k/cumm (0.11-0.7) H 06/13/19 08:16 Absolute Eosinophils 0.00 k/cumm (0.0-0.7) 06/13/19 08:16 Absolute Basophils 0.00 k/cumm (0.0-0.2) 06/13/19 08:16 Differential Comment Manual differential 06/13/19 08:16 RBC Morphology Normal 06/13/19 08:16 PT 11.2 sec (9.3-11.0) H 06/10/19 12:55 INR 1.1 (0.9-1.1) 06/10/19 12:55 APTT 23.9 sec (21.0-31.4) 06/10/19 12:55 D-Dimer 6190 ng/mlFEU (<500) H 06/10/19 12:55 Sodium 132 mmol/L (136-145) L 06/14/19 06:18 Potassium 3.6 mmol/L (3.5-5.1) D 06/14/19 06:18 Chloride 93 mmol/L (98-107) L 06/14/19 06:18 Carbon Dioxide 32.4 mmol/L (21.0-32.0) H 06/14/19 06:18 Anion Gap 6.6 mmol/L (3-11) 06/14/19 06:18 BUN 22 mg/dL (7-18) H D 06/14/19 06:18 Creatinine 0.70 mg/dL (0.55-1.02) 06/14/19 06:18 Estimated GFR/1.73 m2 >= 60.00 (mL/min/1.73m2) 06/14/19 06:18 Glucose 96 mg/dL (74-106) 06/14/19 06:18 Calcium 8.7 mg/dL (8.5-10.1) 06/14/19 06:18 Magnesium 2.1 mg/dL (1.8-2.4) 06/14/19 06:18 Total Bilirubin 0.5 mg/dL (0.2-1.0) 06/10/19 12:55 AST 30 U/L (15-37) 06/10/19 12:55 ALT 35 U/L (14-59) 06/10/19 12:55 Alkaline Phosphatase 171 U/L (46-116) H 06/10/19 12:55 Troponin I < 0.05 ng/Ml (<0.06) 06/10/19 12:55 NT-Pro-B Natriuret Pep 663 pg/mL (<300) 06/10/19 12:55 Total Protein 7.0 g/dL (6.4-8.2) 06/10/19 12:55 Albumin 3.2 g/dL (3.4-5.0) L 06/10/19 12:55 Fluid Source Pleural 06/11/19 13:29 Fluid Source Pleural 06/11/19 13:29 Fluid Color Yellow 06/11/19 13:29 Fluid Clarity Clear 06/11/19 13:29 Fluid pH 7.5 06/11/19 13:29 Fluid WBC 685 /MM3 (0-0) H 06/11/19 13:29 Fluid Mononuclear Cell 90 % (0-0) H 12/23/19 13:29 Fl Polymorphonucl Cell 10 % (0-0) H 06/11/19 13:29 Fluid Glucose 116 mg/dL (See Note) 06/11/19 13:29 Fluid Albumin 2.1 g/dL (See Note) 06/11/19 13:29
[2019-06-14] MEDS: oxyCODONE 15 MG TAB PO (15:41)
--- NOTE | 2019-06-14 16:14 | PTTR_ITS ---
Date of service: 06/14/19 Time of Service: 02:51 PT Notes Visit Reasons: PE, PLEURAL EFFUSION, BREAST CA W/ METS PT Inpatient Treatment Note Date: 06/14/2019 PRECAUTIONS: Fall. Standard. Activity as tolerated. SUBJECTIVE: Patient continues to report pain on low back and right hip. Patient does not feel up to doing much as she did this morning. OBJECTIVE: IV access remains in right UE. PAIN: 6/10 at rest and with weight bearing. BED MOBILITY/TRANSFERS Sit-stand: CGA Stand-sit: CGA Bed-Chair: CGA Chair-bed: CGA GAIT Assistive Device: Front wheeled walker Weight bearing: Full weightbearing Assist: CGA Distance: 25' from bedside to bathroom only Deviation: Step to gait pattern. Donna improved compared to day of evaluation . Reported pain on right hip and back at 6/10 towards the end of gait activity. Step height and length continues to be asymmetric due to pain with weightbearing. No standing rests needed. BP went up to 187/107 per [employer] who states that she took blood pressure twice. Deferred long distance walking due to hypertensive episode. ASSESSMENT: With assistance from on the stairs and with the use of a front wheeled walker for indoor ambulation, patient will be able to manage household distances without much difficulty. Of the use of a hospital bed will maximize independence with all bed mobility and sit to stand activities. Patient requires adequate time for rests in between activity in order to manage pain and improve tolerance. As long as pain is managed, patient is confident with doing mobility ADLs with the use of a front wheeled walker at this time and may manage well at home. PLAN: We will continue to skill patient twice daily while on admission. Patient will benefit from home health PT services in order to progress mobility level using least restrictive assistive ambulatory device, assess home safety, identify additional equipment needs, and establish a functional maintenance program that will increase ability of patient to remain at home. TREATMENT CODE/TIME: 83271 x 23minutes beginning at 2:51 PM.
--- NOTE | 2019-06-14 16:38 | CMPROGNOTE_ITS ---
- If Service Date Differs Date of service: 06/14/19 Time of Service: 16:39 Care Management Progress Note S/O: Fay is sitting up in a chair watching television when CM comes to meet with her. She is pleasant and easily engages in conversation. She shares how the last few weeks have been a roller coaster ride for her. She states she started today on a positive note but by the afternoon, the pain had returned and she was feeling tired again. Dr. Gee from Palliative Care arrives to meet with Fay, so CM excuses herself and leaves the room. CM spoke with Kailey of [facility] today and was advised that Fay qualifies for a hospital bed. This information is related to patient. CM will continue to follow. A: Fay is a 69 year old female admitted to [facility] on 06/11/2019 for PE, pleural effusion, and breast cancer with mets. P: Fay will be discharged home when medically cleared by provider. Anticipate she will require new Home Health PT and OT and CM has coordinated referral. Fay may also require Home Health nursing if she continues to require anticoagulation injections after discharge. She will be transported home by family via private vehicle when ready. CM will continue to support patient, her family, and discharge planning needs.
[2019-06-14 16:54] VITALS: BP 144/76; PULSE 83; RESP 22; TEMP 36.6; O2SAT 95
[2019-06-14 20:12] VITALS: BP 161/78; PULSE 78; TEMP 36.7; O2SAT 95
[2019-06-15 00:05] VITALS: BP 137/69; PULSE 79; RESP 18; TEMP 36.2; O2SAT 96
[2019-06-15] MEDS: oxyCODONE 15 MG TAB PO ×2 (02:05→06:48)
[2019-06-15] MEDS: Enoxaparin 80 MG/0.8 ML SYR 70 MG SC ×2 (03:54→16:26)
[2019-06-15] MEDS: Levothyroxine 25 MCG TAB 37.5 MCG PO (06:40)
[2019-06-15 07:50] VITALS: BP 148/73; PULSE 78; RESP 16; TEMP 36.4; O2SAT 95
[2019-06-15] MEDS: Cholecalciferol (Vitamin D3) 1,000 UNIT TAB 2000 UNITS PO (08:24)
[2019-06-15] MEDS: Metoprolol CR 50 MG TABCR PO (08:24)
[2019-06-15] MEDS: amLODIPine 5 MG TAB PO (08:24)
[2019-06-15] MEDS: predniSONE 20 MG TAB 60 MG PO (08:24)
[2019-06-15] MEDS: Pantoprazole 40 MG TABCR PO (08:25)
[2019-06-15] MEDS: Calcium Carbonate *TUMS* 500 MG CHEW 2000 MG PO (10:20)
[2019-06-15] MEDS: Budesonide/Formoterol 160/4.5 6 GM 60 PUFF INH IH (10:57)
[2019-06-15] MEDS: HYDROmorphone 2 MG TAB PO ×2 (11:06→14:46)
--- NOTE | 2019-06-15 12:28 | PT.INTREAT ---
Date of service: 06/15/19 Time of Service: 12:28 PT Notes Visit Reasons: PE, PLEURAL EFFUSION, BREAST CA W/ METS Inpatient Physical Therapy Treatment Note [facility] Date: 06/15/2019 PRECAUTIONS: Fall, activity as tolerated SUBJECTIVE: Fay states that she is feeling much better now that she has had a shower. She is agreeable to participating in PT. OBJECTIVE: PAIN: Patient c/o significant R groin and hip area pain with gait training, which reportedly improved when in seated position BED MOBILITY/TRANSFERS Sit-stand: S Stand-sit: S GAIT Assistive Device: FWW Weight bearing: Full Assist: SBA Distance: 100' Deviation: Seated rest, c/o increased R groin and hip pain STAIRS: Up/down 3x4 using a step-to pattern with SBA ASSESSMENT: Patient tolerated session with complaint of increasing R groin and hip pain with gait training, requiring seated rest. She would benefit from continued LE strengthening for improved mobility. PLAN: As per primary PT TREATMENT CODE/TIME: 30 minutes; 51097 x2
--- NOTE | 2019-06-15 13:11 | DSE_ITS ---
Date of service: 06/15/19 Time of Service: 13:11 DS: Diagnosis Discharge Diagnosis (1) Malignant neoplasm of breast (female), unspecified site: Status: Acute (2) Pulmonary embolism: Status: Acute (3) Uncontrolled pain: Status: Acute (4) Pleural effusion: Status: Acute (5) Essential hypertension: Status: Acute (6) DVT prophylaxis: Status: Acute (7) Chronic thrombosis of posterior tibial vein: Status: Acute (8) GERD (gastroesophageal reflux disease): Status: Chronic Discharge Plan Disposition Patient Disposition: HOME W/HOME HEALTH SERVICE Condition: Stable Discharge Details Chief Complaint: RespSymp Reason For Visit: PE, PLEURAL EFFUSION, BREAST CA W/ METS Admit Date/Time: 06/11/19 16:10 Admit Provider: Melanie Davies Attending Provider: Melanie Davies Primary Care Provider: Mago Velez [facility] Hospital Course: Jaclyn Gaffney is a very pleasant 69-year-old female with a past medical history significant for breast cancer with bone mets, hypertension GERD, intracranial aneurysm, hypothyroidism and asthma who presented to the [facility] emergency department on 06/10/19 with reports of a 1 week history of worsening shortness of breath and increasing pain. She had recently been diagnosed with bone metastasis by [facility] and was placed on a fentanyl patch for pain control. Imaging in the ED revealed findings suggestive of left upper lobe PE with no evidence of right heart strain, a large left and smaller right pleural effusion with subjacent infiltrates which may represent atelectasis or pneumonia. Stable opacity in the left lung apex. Findings consistent with osseous metastatic disease. Indeterminate thoracic and lumbar compression fracture deformities. Stable left adrenal nodule. She was admitted to the med/surg floor for further observation and management. Anticoagulation was held initially due to concern for possible brain mets as there were reports of confusion and hallucinations during the week prior to her admission. She went on to have a head CT which showed no evidence of intracranial metastatic disease. Lower extremity dopplers showed no DVT on the right, on the left lower extremity, note was made of a thrombus in the mid posterior tibial vein. She was initiated on lovenox. At the time of discharge, she is not short of breath, her oxygen saturation was 95% on room air, she denies chest pain/pressure. She was able to administer her own lovenox injection today. She will be discharged home on Lovenox. She has a biopsy scheduled at [facility] for 06/19/19. She will follow up with oncology as scheduled. She had a left thoracentesis for symptomatic left pleural effusion by Dr. Chin. Approximately 460 cc of clear-yellowish fluid was aspirated. 60 cc of fluid was sent to pathology for evaluation. In regard to her pain, her fentanyl patch dose was increased and her oxycodone was changed to Dilaudid with improved pain management. She was able to ambulate with physical therapy. She continued to have mild discomfort in her back, through her torso and into her right groin with ambulation, however, she reported the pain was tolerable on the current regimen. She will be discharged home with increased fentanyl patch and as needed oral Dilaudid. She is discharged home today, she is a palliative care patient, she will follow- up with palliative care. She will also follow-up with her primary care provider and oncology after her discharge home. At this point, she is still interested in hearing options from oncology. Home Meds and New Rx's Prescriptions: New hydromorphone 2 mg Tablet 2 mg PO Q3H PRN PRNQty: 30 RF: 0 fentanyl [Duragesic] 75 mcg/hr Patch 72 Hour 75 mcg transdermal Q72H Qty: 4 RF: 0 enoxaparin 80 mg/0.8 mL Syringe 70 mg subcut Q12H Qty: 20 RF: 0 pantoprazole 40 mg Tablet,Delayed Release (Dr/Ec) 40 mg PO DAILY@0730 Qty: 30 RF: 0 prednisone 10 mg tablet 10 mg PO DAILY Qty: 30 RF: 0 Continued polyethylene glycol 3350 [Miralax] 17 gram/dose powder 17 gm PO DAILY PRN (Reason: constipation) Qty: 510 RF: 5 amlodipine 5 mg tablet 5 mg PO DAILY Qty: 30 RF: 11 metoprolol succinate 50 mg tablet extended release 24 hr 50 mg PO DAILY Qty: 90 RF: 4 TRAVATAN 0.004% EYE DROP 5 ML drops 1 drp OU DAILY RF: 0 shin seed 1 tbs PO DAILY RF: 0 calcium carbonate [Tums] 200 MG tablet,chewable 2,000 mg PO twice a week Qty: 90 RF: 0 cholecalciferol (vitamin D3) [Vitamin D3] 2,000 UNIT capsule 2,000 unit PO DAILY Qty: 90 RF: 0 Combigan 0.2-0.5 % drops 1 drp OD BID Qty: 5 RF: 4 losartan-hydrochlorothiazide [Hyzaar] 100-25 mg tablet 1 tab PO DAILY Qty: 90 RF: 4 levothyroxine 25 mcg capsule 37.5 mcg PO DAILY Qty: 145 RF: 4 Serevent Diskus 50 mcg/dose blister with device 1 inh IH BID Qty: 60 RF: 2 Discontinued oxycodone 15 mg tablet 15 mg PO Q4H MDD 90 mg PRN (Reason: pain) Qty: 60 RF: 0 anastrozole [Arimidex] 1 mg tablet 1 mg PO DAILY RF: 0 fentanyl 12 mcg/hr patch 72 hour 4 patch TD Q72H MDD 48 mg RF: 0 Discharge Instructions Instructions: Pulmonary Embolism (DC) Additional Instructions: Taper prednisone: take 4 tabs x3 days, then decrease to 3 tabs x3 days, then take 2 tabs x3 days then take 1 tab x3 days, then stop. Your fentanyl patch dose has been increased. Take dilaudid as needed for breakthrough pain. Continue lovenox twice daily as directed. Follow up with your PCP, Palliative and oncology as scheduled. Stand Alone Forms: Nursing Discharge Form Referrals: ONCOLOGY,[facility] [OTHER] - 06/19/19 9:00 am Mago Velez MD [Primary Care Provider] - 06/27/19 8:40 am Activity:: Activity as Tolerated Equipment/Supplies:: No Equipment Needed Diet:: As Tolerated Discharge Orders Discharge Orders: Discharge Order (Routine); Ordered 06/15/19 Ordered By: Aliyah White DS: Summary Status at Discharge Functional status at discharge: uses cane/walker Overall status at discharge: patient is progressing back to baseline Mental Status: mental status grossly normal Speech and Movement: speech and movement normal Mood: congruent mood Affect: normal affect Exam Narrative Exam Narrative: General: very pleasant elderly female laying in bed with HOB elevated. She is A&Ox3, in no acute distress. Speaking in complete sentences without shortness of breath. Moves freely in bed. HEENT: right eye wanders, mucous membranes moist. Heart: Heart has regular rate and rhythm, non-tachycardic, no murmur appreciated. Lungs: Respirations appear even and unlabored, diminished to bilateral bases, no rales or wheezes. Abdomen: Normal active bowel sounds, abdomen is soft, nontender on palpation, nondistended. Extremities: +1 edema to bilateral lower extremities, no calf swelling or tenderness, moves all 4 extremities freely in bed. Psych Mental Status: mental status grossly normal Speech and Movement: speech and movement normal Mood: congruent mood Affect: normal affect DS: Data Vitals/I&O Vitals and I&O: Vital Signs Temperature 36.4 C L 06/15/19 07:50 Temperature Source Tympanic 06/15/19 07:50 Pulse 78 06/15/19 07:50 Pulse Rhythm Regular 06/15/19 11:44 Pulse 89 06/10/19 14:50 Respiratory Rate 16 06/15/19 07:50 Respiratory Effort Non-Labored 06/15/19 11:44 Respiratory Depth Normal 06/15/19 11:44 Respiratory Pattern Normal 06/15/19 11:44 Blood Pressure 148/73 H 06/15/19 07:50 Blood Pressure Mean 75 06/10/19 17:33 Blood Pressure Position Supine 06/10/19 11:52 Pulse Oximetry 95 06/15/19 07:50 Oxygen Delivery Method Room Air 06/15/19 07:50 Oxygen Flow Rate 0 06/15/19 07:50 Fraction of Inspired Oxygen (FIO2) 21 06/11/19 09:10 Pain Level 6 06/15/19 11:06 Intake & Output 06/14/19 06/15/19 06/15/19 23:59 11:59 23:59 Intake Total 950 / 1800 480 / 480 Balance 950 / 600 480 / 480 Intake: Oral 950 / 1800 480 / 480 Other: Urine Color Yellow Yellow Urine Appearance Clear Clear Urine Odor None Normal Comment voided in toilet Stool Size Small Smear Stool Characteristics Soft Soft Formed Brown Voiding Methods Toilet Toilet Data Completed and Pending Completed studies during hospitalization [Text1]: 06/10/19: EXAM: XR CHEST 2V PA LATERAL INDICATION: SOB. COMPARISON: CHEST 2 VIEWS PA,LAT from 03/27/2012 XR CHEST 2V PA LATERAL from 01/16/2019 CT ABDOMEN AND PELVIS W CONTRAST from 06/01/2019 CT CHEST PE CTA from 06/10/2019 TECHNIQUE: 2D digital imaging was performed. FINDINGS: The pulmonary vasculature appears stable and within normal limits. There are bilateral small pleural effusions, left greater than right. There is an infiltrate seen in the left lung base. No pneumothorax is identified. There is an old right 6th rib fracture laterally. This was present on the CT scan of the chest from [facility] dated 06/01/2019. Degenerative changes are seen in the spine. IMPRESSION: 1. Bilateral pleural effusions, left greater than right. 2. Left basilar infiltrate. This may represent atelectasis or pneumonia. 3. Stable right 6th rib fracture. EXAM: CT CHEST PE CTA CLINICAL HISTORY: SOB, elevated d-dimer TECHNIQUE: Imaging Protocol: Axial CT angiography was performed with multi- slice acquisition and multi-planar and/or 3D reconstructions. CONTRAST MATERIAL: Intravenous: Omnipaque 350 Contrast volume:70 mL contrast route:IV - Oral:No COMPARISON: CT ABDOMEN AND PELVIS W CONTRAST from 06/01/2019 FINDINGS: Pulmonary Arteries: There does appear to be a small filling defect in a branch of the pulmonary arteries in the left upper lobe. (Series 6, images [id number].) Tracheobronchial tree: Patent where visualized. Mediastinum and Mikala: No dominant adenopathy or fluid collection. Pulmonary parenchyma: There is an unchanged opacity in the left lung apex. There are areas of consolidation adjacent to the pleural effusions in the lung bases bilaterally. Pleura: There is a large left and a smaller right pleural effusion present. Heart/Aorta: Thoracic aorta non-dilated. No cardiomegaly. No pericardial effusion. No evidence of right heart strain. No coronary artery calcifications are seen. Upper abdomen: Note is again made of a left adrenal nodule which appears stable. Bones: There are again seen multiple lytic and sclerotic lesions consistent with metastatic disease. There are age-indeterminate compression fracture deformities seen in both the thoracic and upper lumbar spine. IMPRESSION: 1. Filling defect is seen in a branch of the pulmonary artery in the left upper lobe suggesting pulmonary embolus. No evidence of right heart strain. 2. Large left and smaller right pleural effusion with subjacent infiltrates which may represent atelectasis or pneumonia. 3. Stable opacity in the left lung apex. 4. Findings consistent with osseous metastatic disease. Indeterminate thoracic and lumbar compression fracture deformities. 5. Stable left adrenal nodule. EXAM: CT HEAD WO CLINICAL HISTORY: brain mets?? TECHNIQUE: The exam was performed according to the usual protocol without contrast. COMPARISON: No exams were available for comparison FINDINGS: The ventricles and sulci are consistent with the patient's age. There are areas of encephalomalacia involving the left frontal lobe and the right posterior parietal lobe. The ventricles are intact. The basilar cisterns are patent. No acute intracranial hemorrhage, midline shift or mass effect is present. There are aneurysm clips seen in the anterior midline. There are findings of a prior right frontal and temporal craniotomy. The visualized paranasal sinuses are clear as are the mastoid air cells. No calvarial fracture is identified. The contrast was not administered which limits evaluation for metastatic disease. IMPRESSION: 1. Suboptimal examination for metastases as IV contrast was not administered. 2. No acute intracranial process. 3. Findings of a prior aneurysm clipping with right frontal craniotomy. 4. Areas of encephalomalacia involving the left frontal lobe and the posterior right parietal lobe. 04/11/19: EXAM: US EXTREMITY VENOUS BI CLINICAL HISTORY: PE, R/O DVT TECHNIQUE: Bilateral lower extremity venous ultrasound performed using grayscale, color-flow, and spectral Doppler analysis. COMPARISON: No previous for comparison. FINDINGS: The right common femoral, femoral and popliteal veins demonstrate normal compressibility, augmentation, and color Doppler. No evidence of a right DVT. The saphenofemoral junction is unremarkable. No evidence of a popliteal cyst on the right. The posterior tibial veins are patent. The left common femoral, femoral and popliteal veins demonstrate normal compressibility, augmentation, and color Doppler. There is hypoechoic thrombus seen in the mid left posterior tibial vein. The saphenofemoral junction is unremarkable. There is no evidence of a popliteal cyst on the left. IMPRESSION: Right: Negative for DVT Left: Thrombus seen in the mid posterior tibial vein. EXAM: XR PORTABLE CHEST AP INDICATION: Left thoracentesis. COMPARISON: XR CHEST 2V PA AND LATERAL from 06/10/2019 TECHNIQUE: 2D digital imaging was performed. FINDINGS: The heart size and pulmonary vasculature are within normal limits. There has been interval decrease in size of the left pleural effusion following thoracentesis. No pneumothorax is identified. No focal consolidating infiltrates are seen. Atelectatic changes are seen in the lung bases. IMPRESSION: Interval decrease in the left pleural effusion following thoracentesis. No pneumothorax. 06/12/19: EXAM: CT HEAD WO/W CLINICAL HISTORY: metastatic cancer, suspicion for brain mets TECHNIQUE: The exam was performed according to the usual protocol. COMPARISON: CT HEAD WO from 06/10/2019 FINDINGS: There again seen areas of encephalomalacia in the left frontal lobe and the posterior right parietal lobe. No intracranial hemorrhage is present. No acute midline shift or mass effect is present. There is a surgical clip anteriorly consistent with an aneurysm clipping. The ventricles are intact. The basilar cisterns are patent. Following contrast administration no enhancing lesions are seen. There again seen findings of a right craniotomy. The visualized paranasal sinuses are clear as are the mastoid air cells. IMPRESSION: No evidence of intracranial metastatic disease. 06/14/19: EXAM: XR PORTABLE CHEST AP INDICATION: follow up pleural effusions. COMPARISON: XR PORTABLE CHEST AP from 06/11/2019 TECHNIQUE: 2D digital imaging was performed. FINDINGS: Heart size and pulmonary vasculature are stable. There are persistent small pleural effusions which are unchanged compared to the prior examination. No focal consolidating infiltrates are seen. No pneumothorax is identified. Labs on day of discharge: Labs from last 24 hours 06/11/19 06/11/19 06/11/19 13:29 13:29 13:29 Fluid Type Left pleural fluid Left pleural fluid Fluid Total Protein 3.7 Fluid LDH 101 Path Cons Comment [facility] Medical History Aneurysm Asthma Blind right eye (Acute) Dyspnea (Acute) Generalized weakness (Acute) History of cerebral aneurysm (Acute) HTN (hypertension) Malignant neoplasm of breast (female), unspecified site (Acute 08/28/12) INTERMEDIATE GRADE INTRADUCTAL CARCINOMA OF THE LEFT BREAST S/P MASTECTOMY AND AXILLARY NODE DISSECTION. Adjuvant RX and radiation Metastatic breast cancer (Chronic) to spine and other bones, lung, lymph nodes Neoplasm, breast Follow-up with [facility] this fall. Palliative care patient (Acute) Pulmonary embolism (Acute) Recurrent breast cancer (Chronic) passed her 5 year cure date in September 2018 Unintentional weight loss (Acute) Surgical History Abdominal hysterectomy (~1998) ovaries remain Colonoscopy - IV Sedation (05/21/16) Family History Mother , age 83 Hypertension Stroke Father , age 85 Heart disease Sister , age 64 Leukemia Sister , age 83 Stroke Sister No problems noted. Brother , age 84 Heart disease Brother No problems noted. Son No problems noted. Son No problems noted. Daughter No problems noted. Daughter No problems noted. Social History Smoking/Tobacco Use Status: Never Alcohol Intake: current Alcohol Intake frequency: a few times a week Alcohol type: wine Drug use: Never Substance use type: does not use Caregiver/Support person: Yes Household members: spouse Housing: house Do you need help understanding health information?: Rarely Pets and animals: No Sexually active: No Do you think of yourself as: straight/heterosexual Current gender identity: decline to answer What is your relationship status?: How often do you talk on the phone with friends or family?: twice per week How often do you get together with friends or relatives?: once per week How often do you attend sabianist or zoroastrian services?: decline to answer Do you belong to any clubs or organized social groups?: yes Panel score (0-1 are the most socially isolated patients): 3 What type of physical activity do you participate in: walking and other Duration: 15-30 minutes/day Frequency: daily Leann/Denominational: Uatsdin Special leann needs: No Seatbelt use: always Drive intox or ride w/intox 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 Not surprised at current findings. Knows she is very sick. Pain is uncontrolled, intolerable. Very winded with minimal exertion, weak,.
--- NOTE | 2019-06-15 13:32 | W.PALLCONSUL ---
Date of service: 06/14/19 Time of Service: 15:32 History of Present Illness Narrative: Fay started out having a really good day today but states that now she is feeling very down. She enjoyed her Claudia day and was feeling up. Her family had come. She had a nice time. She is still concerned that her [id number]'s are not reaching out to her who she thinks really needs for support. She is actually quite surprised at how down she feels. She was hoping that she was over this. She is anticipating going home and being able to walk up to 3 stairs to her home. She has been practicing this with PT and has accomplished it. She also was looking forward to getting the biopsy done and over with. This is been scheduled at [facility] [place]. She is concerned about her pain. Her understanding is that she will be having Dilaudid but less fentanyl patch. She is concerned about this. Consults Consult date: 06/14/19 Requesting physician: Melanie Davies Assessment and Plan Assessment and plan (1) Pulmonary embolism: Status: Acute (2) Pleural effusion: Status: Acute (3) Metastatic breast cancer: Status: Chronic Assessment and plan: Depression - definitely present today. I recommended she consider an anti depressant such as cymbalta 30mg daily. She will consider this. She is worried about pain control with the change from fentanyl patch. I assured her she would be followed outpatient by Dr Proctor and she is excellent with pain control She feels ready to go home and then to [facility] to get her biopsy. I did ask her is she discussed end of life issues with her children and . She has not. She states that they know what is happening to her as they have been at some of the family meetings with mili. I reminded her that Dr Proctor will be back from vacation and will follow up with her outpt Review of Systems Narrative: Her nausea is better. She still has pain in her right leg but she is able to navigate. Her pain is been quite well controlled. She has been eating. Bowels are moving. Her breathing is good. COUNT INCLUDES THE [facility] Medical History Aneurysm Asthma Blind right eye (Acute) Dyspnea (Acute) Generalized weakness (Acute) History of cerebral aneurysm (Acute) HTN (hypertension) Malignant neoplasm of breast (female), unspecified site (Acute 08/28/12) INTERMEDIATE GRADE INTRADUCTAL CARCINOMA OF THE LEFT BREAST S/P MASTECTOMY AND AXILLARY NODE DISSECTION. Adjuvant RX and radiation Metastatic breast cancer (Chronic) to spine and other bones, lung, lymph nodes Neoplasm, breast Follow-up with [facility] [place] this fall. Palliative care patient (Acute) Pulmonary embolism (Acute) Recurrent breast cancer (Chronic) passed her 5 year cure date in September 2018 Unintentional weight loss (Acute) Surgical History Abdominal hysterectomy (~1998) ovaries remain Colonoscopy - IV Sedation (05/21/16) Family History Mother , age 83 Hypertension Stroke Father , age 85 Heart disease Sister , age 64 Leukemia Sister , age 83 Stroke Sister No problems noted. Brother , age 84 Heart disease Brother No problems noted. Son No problems noted. Son No problems noted. Daughter No problems noted. Daughter No problems noted. Social History Smoking/Tobacco Use Status: Never Alcohol Intake: current Alcohol Intake frequency: a few times a week Alcohol type: wine Drug use: Never Substance use type: does not use Caregiver/Support person: Yes Household members: spouse Housing: house Do you need help understanding health information?: Rarely Pets and animals: No Sexually active: No Do you think of yourself as: straight/heterosexual Current gender identity: decline to answer What is your relationship status?: How often do you talk on the phone with friends or family?: twice per week How often do you get together with friends or relatives?: once per week How often do you attend confucianist or confucianist services?: decline to answer Do you belong to any clubs or organized social groups?: yes Panel score (0-1 are the most socially isolated patients): 3 What type of physical activity do you participate in: walking and other Duration: 15-30 minutes/day Frequency: daily Leann/Sikhism: Muslim Special leann needs: No Seatbelt use: always Drive intox or ride w/intox 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 Not surprised at current findings. Knows she is very sick. Pain is uncontrolled, intolerable. Very winded with minimal exertion, weak,. Exam Narrative Exam Narrative: She is sitting in her chair, smiling. Her breathing is good she is talking in complete sentences. She has excellent eye contact. She moves in her seat some but not nearly as much as she did 2 days ago. She is not tachycardic Results Last Vital Signs Temp 97.5 F L 06/15/19 07:50 Pulse 78 06/15/19 07:50 Resp 16 06/15/19 07:50 BP 148/73 H 06/15/19 07:50 Pulse Ox 95 06/15/19 07:50 Labs Result diagrams: 06/14/19 06:18 06/14/19 06:18 Labs: Laboratory Results - last 24 hr 06/11/19 06/11/19 06/11/19 13:29 13:29 13:29 Fluid Type Left pleural fluid Left pleural fluid Fluid Total Protein 3.7 Fluid LDH 101 Path Cons Comment
--- NOTE | 2019-06-15 14:27 | CMDISCH_ITS ---
- If Service Date Differs Date of service: 06/15/19 Time of Service: 14:27 LACE Index Scoring Tool - Questions: Length of Stay (in days): 4 - 6 Acuity (Admit via E.D.?): Yes Comorbidities: Metastatic Solid Tumor E.D. Visits: 1 - Answers: Total Score: 13 Risk of Readmission: High Risk Care Management Discharge Reason for Hospitalization: PE, pleural effusion, breast cancer with mets. Discharge Plan: Fay is discharged home. She will follow up with her PCP, [facility] oncology and her plan of care as directed, including medication recommendations. Fay has all DME needed as she has a walker, wheelchair and commode at home and [facility] is delivering a hospital bed to her home today. Patient/Family Education Needs: Nursing will review discharge instructions with Fay re medications. Fay is able to verbalize reason for hospitalization and how to manage care at home. Services Needed at Discharge: DME Agency ([facility] delivering a hospital bed to the home today.), Home Health Care Services (Resumption of SN and new orders for PT, OT and [facility])
--- NOTE | 2019-06-15 14:36 | PDOC.HHF2F ---
Home Health Certification Home Health Certification: 1. Encounter Date and Reason I certify that NAOMI SOUZA was seen by Aliyah White on 06/15/19 and that I had a [id number] encounter with this patient that meets the physician face to face encounter requirements. 2. Clinical Findings Supporting Skilled Need and Homebound Status I certify that home health services are medically necessary, include either intermittent intermediate and/or physical/speech therapy, and that this patient is homebound in that absences from the home require considerable and taxing effort and are infrequent or of short duration, or are attributable to the need to receive medical care. [X] (a) Attached documentation from encounter provides clinical findings supporting skilled need and homebound status (including what assistance patient requires to leave the home). The encounter with the patient was in whole, or in part, for the following medical condition, which is the primary reason for home health care: PE, PLEURAL EFFUSION, BREAST CA W/ METS Custodial: Resume home health nursing, assist with medication management. Assist with Lovenox injections. Physical Therapy: Needed to continue to work on strength and endurance after hospitalization. OT: needed to assess home environment and make recommendations for adaptive devices as needed. VENDOR RELATIONSHIP MANAGER: needed to assist with coping with diagnosis and connect with community resources as needed. Speech Therapy: Homebound: Unable to leave home without assistance. 3. Certification and Authentication I certify that I composed the above information based on my clinical judgement relating to this patient's medical condition and, if applicable, clinical findings communicated to me by the NPP or inpatient physician who performed the Home Health Referral. All further orders will be obtained through ____Dr. Patrick (Community Based Physician - PCP)
[2019-06-15 16:17] VITALS: PULSE 78; PULSE 90; RESP 16; RESP 18; RESP 20; O2SAT 93; O2SAT 94; O2SAT 96
--- NOTE | 2019-06-17 11:36 | PT.INDS ---
Date of service: 06/17/19 Time of Service: 11:36 PT Notes Visit Reasons: PE, PLEURAL EFFUSION, BREAST CA W/ METS Inpatient Physical Therapy Discharge Summary Dates: 06/17/2019 Dates of Service: 06/12/2019 through 06/15/2019 This is a clinical summary of care provided on the duration of dates listed above. No charge was made in the completion of this documentation. Referring Doctor: Melanie Davies MD PT Orders: PT CONSULT: Limited ability Precautions: Fall. Standard. Activity as tolerated. Patient Profile/Admitting Diagnosis: Patient is a 69-year-old female who presented to the ED on 1222 with chief complaint of worsening shortness of breath which made her lying flat in bed very difficult. Patient is currently on palate care and has been receiving treatment for recurrent breast cancer with known metastasis to the spine. Patient is diagnosed with pulmonary embolism, pleural effusion, malignant neoplasm of breast, uncontrolled pain, essential hypertension, and hallucination. PMHX: Medical History Aneurysm Asthma HTN (hypertension) Neoplasm, breast Follow-up with [facility] this fall. Surgical History Abdominal hysterectomy (~1998) ovaries remain Colonoscopy - IV Sedation (05/21/16) Social History/Home Situation: Patient lives with in a 1-floor house with 3-4 steps to enter with rails on both sides however they are far apart so she is able to hold onto one rail at a time. has been patient's caregiver since diagnosis of breast cancer. Patient is independent with all mobility ADL performance but receives home health services for 2 hours a week. Equipment Owned/DME: Wheelchair, FWW, two single-point canes, hand-held shower, grab bars Subjective:NT Objective: General Observation: NT Mental Status: NT Pain: NT ROM: Right Upper Extremity: Shoulder Flexion WFL. Shoulder abduction WFL. Elbow flexion WFL. Wrist flexion WFL. Opening and closing of hand WFL. Left Upper Extremity: Shoulder Flexion WFL. Shoulder abduction WFL. Elbow flexion WFL. Wrist flexion WFL. Opening and closing of hand WFL. Right Lower Extremity: Hip flexion WFL. Hip abduction WFL. Knee flexion WFL. Ankle dorsiflexion WFL. Ankle plantarflexion WFL. Left Lower Extremity: Hip flexion WFL. Hip abduction WFL. Knee flexion WFL. Ankle dorsiflexion WFL. Ankle plantarflexion WFL. Strength: Right Upper Extremity: Shoulder flexors 4/5. Shoulder abductors 4/5. Elbow flexors 4/5. Elbow extensors 4/5. Executive Housekeeper strong. Left Upper Extremity: Shoulder flexors 4/5. Shoulder abductors 4/5. Elbow flexors 4/5. Elbow extensors 4/5. Executive Housekeeper strong. Right Lower Extremity: Hip flexors 4/5. Hip abductors 4/5. Knee flexors 4/5. Knee extensors 4/5. Ankle dorsiflexors 4/5. Ankle plantarflexors 4/5. Left Lower Extremity:Hip flexors 4/5. Hip abductors 4/5. Knee flexors 4/5. Knee extensors 4/5. Ankle dorsiflexors 4/5. Ankle plantarflexors 4/5. Sensation: Intact as to pain and pressure on bilateral lower extremities. Bed Mobility/Transfers: Rolling supervision Supine to sit supervision Sit to supine supervision Sit to stand supervision Stand to sit supervision Bed to chair supervision Chair to bed supervision Gait: Per PT notes on 06/15/2019, patient tolerated level surface ambulation of 150 feet requiring SBA with full weight bearing using the front wheeled walker requiring 1 seated rest with complaints of right LE pain but no LOB. Patient also managed to go up and down three 4 inch steps while holding onto bilateral rails using step to gait pattern with SBA. Balance: Static Sitting: Normal Dynamic Sitting: Good Static Standing: Fair Dynamic Standing: Fair Assessment: Patient is a 69-year-old female with diagnoses of pulmonary embolism, pleural effusion, malignant neoplasm of breast, uncontrolled pain, essential hypertension, and hallucination. Patient continues to present with clinical signs and symptoms consistent with current/admitting diagnoses that have resulted to mobility limitations, gait instability, generalized weakness, and impairment of motor control as demonstrated by the following impairment level findings: 1. Decreased strength to B UE/LE major muscle groups 2. Impaired standing balance 3. Impaired activity tolerance Impairments continue to contributing to the following functional limitations: 1. Inability to safely ambulate without assistive device and physical assistance 2. Increase completion time for mobility ADL performance 3. Increased fall risk 4. Inability to negotiate steps alone safely Goals: Goals X1 week 1. Supine-Sit independent NOT MET 2. Sit-Supine independent NOT MET 3. Sit-Stand independent NOT MET 4. Stand-Sit independent NOT MET 5. Bed-Chair independent NOT MET 6. Chair-Bed independent NOT MET 7. Independent gait on level surface with use of least restrictive device for at least 300 feet without report of pain nor dyspnea NOT MET 8. Independent stair negotiation while holding onto bilateral rails for at least 10 steps without report of pain nor dyspnea NOT MET 9. Independent with home exercise program NOT MET 10. Good static and dynamic standing balance/tolerance NOT MET DISCHARGE RECOMMENDATIONS: Patient will benefit from home health PT services in order to potentially progress mobility level using front wheeled walker, assess home safety, identify additional equipment needs, and establish a functional maintenance program that will increase ability of patient to remain at home. TREATMENT CODE/TIME: NC. Thank you very much for this referral. Hien Dc PT, DPT, CLT [facility] [place], [place]
== END 2019-06-15 17:01 | disposition home health service (06) | DRG 542 ==
LOC: ER 17:37 → MS 18:11
PROVIDERS: Nurse Practitioner Family; Surgery; Admitting Provider Internal Medicine; Emergency Provider Physician Assistant; PCP Internal Medicine; Visit Provider Internal Medicine
PROC: 0W9B3ZX Drainage of Left Pleural Cavity, Percutaneous Approach, Diagnostic (ICD-10-PCS; CPT 32554; principal; 2019-06-11 13:15)
DX: C79.51 Secondary malignant neoplasm of bone (principal); I26.99 Other pulmonary embolism without acute cor pulmonale; J90 Pleural effusion, not elsewhere classified; R44.3 Hallucinations, unspecified; I82.542 Chronic embolism and thrombosis of left tibial vein; C50.919 Malignant neoplasm of unspecified site of unspecified female breast; G89.3 Neoplasm related pain (acute) (chronic); R41.0 Disorientation, unspecified; Z51.5 Encounter for palliative care; Z85.3 Personal history of malignant neoplasm of breast; I10 Essential (primary) hypertension; K21.9 Gastro-esophageal reflux disease without esophagitis; E03.9 Hypothyroidism, unspecified; J45.909 Unspecified asthma, uncomplicated; Z79.01 Long term (current) use of anticoagulants
CPT/HCPCS: 32554; 36415; 51702; 71275; 80048; 80053; 82042; 85027; 93005; 94640; 96361; 96374; 96375; 96376; 97163; 97530; 99222; 99223; 99232; 99233; 99239; 99253; 99255; 99285; 70450; 70470; 71045; 71046; 81373; 83615; 83735; 83880; 83986; 84157; 84484; 85025; 85379; 85610; 85730; 88104; 88361; 89051; 93010; 93970; 99220; G0378; J1650; J2405; J3480; J3490; J7512

== ENCOUNTER 2019-06-18 15:21 | Outpatient (CLI) | payer MEDICARE, BC, SELFPAY ==
[2019-06-18 16:10] LABS: Absolute Basophil Count 0.02 k/cumm (0.0-0.2); Absolute Eosinophil Count 0.01 k/cumm (0.0-0.7); Absolute Lymphocyte Count 0.85 k/cumm (1.2-3.4); Basophils % 0.2; Eosinophils % 0.1; HGB 13.1 g/dL (12.0-15.5); Immature Grans % 3.3; Mean Corp. HGB Concentration 33.6 g/dL (32.0-36.0); Mean Corpuscular Hemoglobin 31.2 pg (27.0-33.0); Mean Corpuscular Volume 92.9 fL (80-95); Mean Platelet Volume 9.9 fL (8.0-11.0); Neutrophils % 84.4; Platelet Count 247 x1000/uL (130-400); RBC Distribution Width 14.6 % (11.7-14.6); White Blood Cell Count 12.08 k/cumm (4.4-10.8)
[2019-06-18 16:46] LABS: ALT 28 U/L (14-59); AST 25 U/L (15-37); Albumin 3.3 g/dL (3.4-5.0); Alkaline Phosphatase 175 U/L (46-116); Anion Gap 8.2 mmol/L (3-11); BUN 16 mg/dL (7-18); Bilirubin, Total 0.4 mg/dL (0.2-1.0); CO2 31.8 mmol/L (21.0-32.0); CREATININE 0.62 mg/dL (0.55-1.02); Calcium 8.9 mg/dL (8.5-10.1); Chloride 95 mmol/L (98-107); Glucose 141 mg/dL (74-106); Potassium 3.7 mmol/L (3.5-5.1); Sodium 135 mmol/L (136-145); Total Protein 6.4 g/dL (6.4-8.2)
[2019-06-19 14:16] LABS: Cancer Ag 15-3 41 U/mL (<30)
== END 2019-06-18 15:41 ==
PROVIDERS: PCP Internal Medicine; Visit Provider Internal Medicine
DX: C50.911 Malignant neoplasm of unspecified site of right female breast (principal)
CPT/HCPCS: 36415; 80053; 86304; 85025; 86300

== ENCOUNTER 2019-07-02 12:56 | Outpatient (REF) | payer MEDICARE, BC, SELFPAY ==
[2019-07-02 15:22] LABS: Abs Immature Grans 0.04 k/cumm (0.0-0.09); Absolute Basophil Count 0.01 k/cumm (0.0-0.2); Absolute Eosinophil Count 0.13 k/cumm (0.0-0.7); Absolute Monocyte Count 0.07 k/cumm (0.11-0.7); Basophils % 0.2; Eosinophils % 2.2; HCT 35.8 % (36.0-46.0); HGB 11.6 g/dL (12.0-15.5); Immature Grans % 0.7 %; Lymphocytes % 10.1; Mean Corp. HGB Concentration 32.4 g/dL (32.0-36.0); Mean Corpuscular Hemoglobin 31.4 pg (27.0-33.0); Mean Platelet Volume 10.6 fL (8.0-11.0); Monocytes % 1.2; Neutrophils % 85.6; Platelet Count 232 x1000/uL (130-400); RBC 3.69 m/cumm (4.00-5.20); RBC Distribution Width 15.6 % (11.7-14.6); White Blood Cell Count 5.95 k/cumm (4.4-10.8)
== END 2019-07-02 13:16 ==
LOC: LBO 12:56
PROVIDERS: PCP Internal Medicine; Visit Provider Internal Medicine
DX: C50.919 Malignant neoplasm of unspecified site of unspecified female breast (principal); C79.51 Secondary malignant neoplasm of bone
CPT/HCPCS: 86304; 85025; 86300

== ENCOUNTER 2019-07-03 09:19 | Outpatient (CLI) | payer MEDICARE, BC, SELFPAY ==
[2019-07-03 09:52] LABS: ALT 45 U/L (14-59); AST 28 U/L (15-37); Alkaline Phosphatase 218 U/L (46-116); Anion Gap 5.8 mmol/L (3-11); BUN 21 mg/dL (7-18); Bilirubin, Total 0.4 mg/dL (0.2-1.0); CO2 32.2 mmol/L (21.0-32.0); CREATININE 1.16 mg/dL (0.55-1.02); Chloride 94 mmol/L (98-107); Estimated GFR 46.05 (mL/min/1.73m2); Glucose 122 mg/dL (74-106); Potassium 3.7 mmol/L (3.5-5.1); Sodium 132 mmol/L (136-145); Total Protein 6.5 g/dL (6.4-8.2)
== END 2019-07-03 09:39 ==
PROVIDERS: PCP Internal Medicine; Visit Provider Internal Medicine
DX: C50.919 Malignant neoplasm of unspecified site of unspecified female breast (principal)
CPT/HCPCS: 36415; 80053

== ENCOUNTER 2019-07-07 14:30 | Inpatient (IN) | payer MEDICARE, BC, SELFPAY ==
[2019-07-07] VITALS (10 sets, daily range): BP systolic 108–145; BP diastolic 58–79; PULSE 95–106; RESP 1–20; TEMP 36.2–37; O2SAT 90–98
--- NOTE | 2019-07-07 15:09 | W.ED.GENAD ---
Discharge Plan Disposition Patient Disposition: [facility] INPATIENT Condition: Stable Discharge Details Chief Complaint: GenMedical Clinical Impression: Metastatic breast carcinoma, Hyponatremia Primary Care Provider: Mago Velez ED Provider: Arley Nuñez Home Meds and New Rx's Prescriptions: Continued amlodipine 5 mg tablet 5 mg PO DAILY Qty: 30 RF: 11 metoprolol succinate 50 mg tablet extended release 24 hr 50 mg PO DAILY Qty: 90 RF: 4 esomeprazole magnesium [Nexium] 40 mg capsule,delayed release(DR/EC) 40 mg PO DAILY MDD 1 Qty: 30 RF: 3 TRAVATAN 0.004% EYE DROP 5 ML drops 1 drp OU DAILY RF: 0 shin seed 1 tbs PO DAILY RF: 0 calcium carbonate [Tums] 200 MG tablet,chewable 2,000 mg PO PRN PRNQty: 90 RF: 0 cholecalciferol (vitamin D3) [Vitamin D3] 2,000 UNIT capsule 2,000 unit PO DAILY Qty: 90 RF: 0 Combigan 0.2-0.5 % drops 1 drp OD BID Qty: 5 RF: 4 losartan-hydrochlorothiazide [Hyzaar] 100-25 mg tablet 1 tab PO DAILY Qty: 90 RF: 4 levothyroxine 25 mcg capsule 37.5 mcg PO DAILY Qty: 145 RF: 4 Serevent Diskus 50 mcg/dose blister with device 1 inh IH BID Qty: 60 RF: 2 gabapentin 300 mg capsule 300 mg PO TID Qty: 90 RF: 3 fentanyl 100 mcg/hr patch 72 hour 1 patch TD Q72H MDD 100 mcg Qty: 10 RF: 0 hydromorphone 4 mg tablet 4 mg PO Q4H MDD 20 mg PRN (Reason: pain) Qty: 90 RF: 0 fulvestrant [Faslodex] 250 mg/5 mL syringe 500 mg IM QMONTH RF: 0 Xgeva 120 mg/1.7 mL (70 mg/mL) solution 120 mg SC Q4W RF: 0 enoxaparin 80 mg/0.8 mL Syringe 70 mg subcut Q12H Qty: 20 RF: 0 prednisone 10 mg tablet 10 mg PO DAILY Qty: 30 RF: 0 ondansetron HCl [Zofran] 4 mg Tablet 4 mg PO Q4-5H RF: 0 Eliquis 5 mg Tablet 5 mg PO BID RF: 0 lorazepam 0.5 mg tablet 0.5 mg PO PRN PRN (Reason: anxiety) RF: 0 polyethylene glycol 3350 [Miralax] 17 gram/dose powder 17 gm PO PRN PRN (Reason: constipation) RF: 0 scopolamine base 1 mg over 3 days Patch 3 Day 1 mg Q1-2D RF: 0 Medical Decision Making 69-year-old female who started chemotherapy 2 weeks ago for metastatic breast cancer. At the end of May she was diagnosed with pulmonary embolism and placed on Eliquis. Over the past 3 days she has had increasing pain, minimal to no p.o. intake, decreased ability to take medications. Home health nurses evaluate her and her fentanyl patch was increased from 100 to 150 mcg. She states she wishes to begin focusing primarily on comfort and presented to the ED for assistance with pain control and hydration. Her initial vital signs reveal a mild tachycardia of 106, she is afebrile and oxygenating normally. She has established care with the palliative treatment team. She and her family state they are considering transitioning to hospice care in the home. IV was placed, patient given fluid bolus, parenteral analgesia and referred for laboratory screening. She was seen in consultation by care management in the ED. Laboratories reveal a white blood cell count of 2.9, hematocrit 36, platelets 202. Absolute neutrophils of 2.2. Sodium 130, potassium 3.8, chloride 89, bicarb 33, BUN 13, creatinine 0.7. I discussed the case with Aliyah White who has aided in the patient's care today. She is not yet a formal hospice patient, but the outpatient team does agree that she merits admission for symptom control. I discussed with the patient and her her wishes at this time in her life. She wishes to be DNR/DNI, she would like to have peripheral IV with fluids, antibiotics if needed, but does not want central line placement or critical care medication support such as pressors. Case discussed with Dr Brand and patient to be admitted. HPI General Mode of arrival: ambulatory. Date/Time Provider Initiated Documentation: 07/07/19 14:41. Limitations to Documentation: no limitations. Information obtained by: patient. History of Present Illness 69 year old F presents to the emergency department with the chief complaint of Pain and nausea, Quality is described as dull and constant, and is localized to the back and lower extremity. Patient reports no radiation. Patient started experiencing this day(s) and it has been constant. No relieving factors improve symptom(s), No exacerbating factors reported . Patient notes nausea/vomiting. Patient did receive the following treatments prior to arrival, other (Fentanyl increased to 150 mcg) Related Data Home Medications Medication Instructions Recorded Confirmed Travatan 0.004% Eye Drop 1 drp OU DAILY drp 11/03/12 06/10/19 Shin Seed 1 tbs PO DAILY 05/11/13 06/10/19 calcium carbonate [Tums] 2,000 mg PO PRN PRN #90 tab.chew 11/25/14 07/07/19 cholecalciferol (vitamin D3) 2,000 unit PO DAILY #90 tab 11/25/14 06/10/19 [Vitamin D3] brimonidine 0.2 %-timolol 0.5 % 1 drp OD BID #5 m 05/17/18 07/07/19 eye drops losartan 100 1 tab PO DAILY #90 tab-cap 05/17/18 07/07/19 mg-hydrochlorothiazide 25 mg tablet levothyroxine 25 mcg capsule 37.5 mcg PO DAILY #145 cap 05/18/18 07/07/19 amlodipine 5 mg tablet 5 mg PO DAILY #30 tab-cap 01/15/19 07/07/19 metoprolol succinate 50 mg 50 mg PO DAILY #90 tab 03/28/19 07/07/19 tablet,extended release 24 hr salmeterol 50 mcg/dose blister 1 inh IH BID #60 each 06/12/19 07/07/19 powder for inhalation enoxaparin 70 mg SUBCUT Q12H #20 ml 06/15/19 prednisone 10 mg PO DAILY #30 tab 06/15/19 gabapentin 300 mg capsule 300 mg PO TID #90 cap 06/16/19 07/07/19 fentanyl 100 mcg/hr transdermal 1 patch TD Q72H #10 each MDD 100 06/26/19 07/07/19 patch mcg esomeprazole magnesium 40 mg 40 mg PO DAILY #30 cap MDD 1 06/27/19 07/07/19 capsule,delayed release hydromorphone 4 mg tablet 4 mg PO Q4H PRN #90 tab MDD 20 mg 07/02/19 07/07/19 denosumab 120 mg/1.7 mL (70 mg/mL) 120 mg SC Q4W 07/04/19 subcutaneous solution fulvestrant 250 mg/5 mL 500 mg IM QMONTH 07/04/19 intramuscular syringe Eliquis 5 mg PO BID 07/07/19 07/07/19 lorazepam 0.5 mg PO PRN PRN 07/07/19 07/07/19 ondansetron HCl [Zofran] 4 mg PO Q4-5H 07/07/19 07/07/19 polyethylene glycol 3350 [Miralax] 17 gm PO PRN PRN 07/07/19 07/07/19 scopolamine base 1 mg Q1-2D 07/07/19 07/07/19 Previous Rx's Medication Instructions Recorded brimonidine 0.2 %-timolol 0.5 % 1 drp OD BID #5 m 05/17/18 eye drops losartan 100 1 tab PO DAILY #90 tab-cap 05/17/18 mg-hydrochlorothiazide 25 mg tablet levothyroxine 25 mcg capsule 37.5 mcg PO DAILY #145 cap 05/18/18 amlodipine 5 mg tablet 5 mg PO DAILY #30 tab-cap 01/15/19 metoprolol succinate 50 mg 50 mg PO DAILY #90 tab 03/28/19 tablet,extended release 24 hr salmeterol 50 mcg/dose blister 1 inh IH BID #60 each 06/12/19 powder for inhalation enoxaparin 70 mg SUBCUT Q12H #20 ml 06/15/19 prednisone 10 mg PO DAILY #30 tab 06/15/19 gabapentin 300 mg capsule 300 mg PO TID #90 cap 06/16/19 fentanyl 100 mcg/hr transdermal 1 patch TD Q72H #10 each MDD 100 06/26/19 patch mcg esomeprazole magnesium 40 mg 40 mg PO DAILY #30 cap MDD 1 06/27/19 capsule,delayed release hydromorphone 4 mg tablet 4 mg PO Q4H PRN #90 tab MDD 20 mg 07/02/19 Allergies Allergy/AdvReac Type Severity Reaction Status Date / Time nickel Allergy Severe SWELLING; Verified 07/07/19 14:45 ITCH paclitaxel [From Taxol] Allergy Intermediate Cardiac Verified 07/07/19 14:45 Dysrythmia formaldehyde Allergy Unknown HANDS Verified 07/07/19 14:45 BREAKOUT; CRACK iodine Allergy Unknown Verified 07/07/19 14:45 doxycycline AdvReac Intermediate Nausea Verified 07/07/19 14:45 General Stated Complaint: GenMedical CAROLIN: 3 Review of Systems Narrative: No new leg weakness or numbness, no change to bowel or bladder habits. Her fentanyl was recently increased from 100 to 150 mcg. Decreased p.o. intake over the past 3 days time. [facility] Medical History Aneurysm Asthma Blind right eye (Acute) Cancer related pain (Chronic) Dyspnea (Acute) Generalized weakness (Acute) History of cerebral aneurysm (Acute) HTN (hypertension) Malignant neoplasm of breast (female), unspecified site (Acute 08/28/12) INTERMEDIATE GRADE INTRADUCTAL CARCINOMA OF THE LEFT BREAST S/P MASTECTOMY AND AXILLARY NODE DISSECTION. Adjuvant RX and radiation Metastatic breast cancer (Chronic) to spine and other bones, lung, lymph nodes Neoplasm, breast Follow-up with [facility] this fall. Palliative care patient (Acute) Pulmonary embolism (Acute) Recurrent breast cancer (Chronic) passed her 5 year cure date in September 2018 Unintentional weight loss (Acute) Social History Smoking/Tobacco Use Status: Never Alcohol Intake: current Alcohol Intake frequency: a few times a week Alcohol type: wine Drug use: Never Substance use type: does not use Caregiver/Support person: Yes Household members: spouse Housing: house Do you need help understanding health information?: Rarely Pets and animals: No Sexually active: No Do you think of yourself as: straight/heterosexual Current gender identity: decline to answer What is your relationship status?: How often do you talk on the phone with friends or family?: twice per week How often do you get together with friends or relatives?: once per week How often do you attend tenriism or yazidism services?: decline to answer Do you belong to any clubs or organized social groups?: yes Panel score (0-1 are the most socially isolated patients): 3 What type of physical activity do you participate in: walking and other Duration: 15-30 minutes/day Frequency: daily Leann/Jehovah'S Witness: Episcopalian Special leann needs: No Seatbelt use: always Drive intox or ride w/intox front end loader driver: No Do you feel safe at home: Yes Do you feel safe in your relationship?: Yes Additional Social history: Just passed 5 year cure date in September 2018. Not surprised at current findings. Knows she is very sick. Pain is uncontrolled, intolerable. Very winded with minimal exertion, weak,. Exam Narrative Exam Narrative: GEN: awake, alert, oriented 3. Pleasant, well groomed, interactive. HEAD: Normocephalic, atraumatic ENT: Mucous membranes dry, oropharynx unremarkable, External ear exam unremarkable EYES: PERRL, EOMI NECK: Full ROM, no TONIA, no menigismus CHEST/RESP: Nontender, clear to auscultation bilateral, no wheeze/rhonchi/rales CARDIOVASCULAR: RRR, no murmur, rub anna. 2+ Rad pulse bilateral Back: Tender throughout to palpation. No focal areas of step-off. ABDOMEN: Soft, nontender, no mass. +Bowel sounds EXT: Full ROM, no edema, no rash Neuro: Grossly normal neurologic exam, conversant, interactive. Psych: Speech fluent, thoughts congruent, affect normal Course Vital Signs Vital signs: Vital Signs Temperature 37.0 C 07/07/19 14:37 Pulse 106 H 07/07/19 14:37 Blood Pressure 108/79 07/07/19 14:37 Pulse Oximetry 94 L 07/07/19 14:37 Temperature 37.0 C 07/07/19 14:37 Pulse 106 H 07/07/19 14:37 Respiratory Rate 20 07/07/19 14:48 Respiratory Effort 07/07/19 14:48 Respiratory Depth Normal 07/07/19 14:48 Respiratory Pattern Normal 07/07/19 14:48 Blood Pressure 108/79 07/07/19 14:37 Blood Pressure Position Supine 07/07/19 14:37 Pulse Oximetry 94 L 07/07/19 14:37 Oxygen Delivery Method Room Air 07/07/19 14:37 Oxygen Flow Rate 0 07/07/19 14:37 Pain Level 10 07/07/19 14:37
[2019-07-07] MEDS: Normal Saline 1,000 ML 1000 ML IV (15:30)
[2019-07-07 15:39] LABS: Abs Immature Grans 0.01 k/cumm (0.0-0.09); Absolute Basophil Count 0.02 k/cumm (0.0-0.2); Absolute Eosinophil Count 0.04 k/cumm (0.0-0.7); Absolute Lymphocyte Count 0.51 k/cumm (1.2-3.4); Absolute Neutrophil Count 2.22 k/cumm (1.2-6.7); Basophils % 0.7; Eosinophils % 1.4; HCT 36.6 % (36.0-46.0); HGB 12.4 g/dL (12.0-15.5); Immature Grans % 0.3 %; Lymphocytes % 17.6; Mean Corp. HGB Concentration 33.9 g/dL (32.0-36.0); Mean Corpuscular Hemoglobin 31.5 pg (27.0-33.0); Mean Corpuscular Volume 92.9 fL (80-95); Mean Platelet Volume 9.8 fL (8.0-11.0); Monocytes % 3.4; Neutrophils % 76.6; Platelet Count 202 x1000/uL (130-400); RBC 3.94 m/cumm (4.00-5.20); RBC Distribution Width 14.6 % (11.7-14.6)
[2019-07-07] MEDS: HYDROmorphone 2 MG/ML VIAL 1 MG IVP ×2 (15:40→16:05)
[2019-07-07] MEDS: Ondansetron 4 MG/2 ML VIAL IVP (15:41)
[2019-07-07 15:58] LABS: ALT 36 U/L (14-59); AST 24 U/L (15-37); Albumin 3.1 g/dL (3.4-5.0); Alkaline Phosphatase 217 U/L (46-116); Anion Gap 7.3 mmol/L (3-11); BUN 13 mg/dL (7-18); Bilirubin, Total 0.4 mg/dL (0.2-1.0); CO2 33.7 mmol/L (21.0-32.0); CREATININE 0.73 mg/dL (0.55-1.02); Calcium 8.7 mg/dL (8.5-10.1); Chloride 89 mmol/L (98-107); Glucose 115 mg/dL (74-106); Potassium 3.8 mmol/L (3.5-5.1); Sodium 130 mmol/L (136-145); Total Protein 6.4 g/dL (6.4-8.2)
[2019-07-07] MEDS: HYDROmorphone 2 MG/ML VIAL 0.5 MG IVP ×2 (16:39→18:11)
[2019-07-07] MEDS: Albuterol/Ipratropium 3 ML UPD VIAL UPD (16:59)
[2019-07-07] MEDS: Normal Saline 1,000 ML 150 ML IV (17:41)
[2019-07-07 19:12] LABS: Bilirubin Negative (Negative); Blood Negative (Negative); Clarity Clear (Clear); Glucose Negative (Negative); Ketones 40 mg/dL (Negative); Leukocyte Esterase Negative (Negative); Nitrite Negative (Negative); Urobilinogen 0.2 EU/dL (Up TO 0.2)
[2019-07-07] MEDS: ACETAMINOPHEN 1,000 MG/100 ML BTL 400 MG IVPB (19:46)
[2019-07-07] MEDS: LORazepam 0.5 MG TAB PO (19:47)
[2019-07-07] MEDS: HYDROmorphone 2 MG/ML VIAL IVP (19:48)
--- NOTE | 2019-07-07 19:50 | NUR.NOTE ---
pt has [address] to rt deltoid that are dated as placed on 07/07/19 by family prior to arrival. Nursing Note:
--- NOTE | 2019-07-07 22:04 | W.PM.HP.N ---
Date of service: 07/07/19 Time of Service: 22:05 Assessment and Plan Assessment and plan (1) Dehydration: Status: Acute Assessment and plan: We will give IV fluids overnight monitor blood pressure and urine output. Repeat BMP in the morning. (2) Metastatic breast cancer: Status: Chronic Assessment and plan: Continue her Duragesic patch and give IV Dilaudid as needed breakthrough pain. (3) Hyponatremia: Status: Acute Assessment and plan: Hydrate with normal saline and recheck her BMP in the morning (4) Leukopenia due to antineoplastic chemotherapy: Status: Acute Assessment and plan: Monitor blood count. Could consider Neulasta if the patient wants to continue chemotherapy treatment. Otherwise if she goes on comfort measures then I would discontinue all lab monitoring (5) Pulmonary embolism: Status: Acute Assessment and plan: Continue her Eliquis Qualifiers: Acute cor pulmonale presence: unspecified Chronicity: unspecified Pulmonary embolism type: unspecified Qualified Code(s): I26.99 - Other pulmonary embolism without acute cor pulmonale (6) Hypertension: Status: Chronic Assessment and plan: Continue home blood pressure medications. Qualifiers: Hypertension type: essential hypertension Qualified Code(s): I10 - Essential (primary) hypertension (7) GERD (gastroesophageal reflux disease): Status: Chronic Assessment and plan: Continue PPI either orally or IV. Qualifiers: Esophagitis presence: esophagitis presence not specified Qualified Code(s): K21.9 - Gastro-esophageal reflux disease without esophagitis (8) Uncontrolled pain: Status: Acute Assessment and plan: Continue her Duragesic patch and give Dilaudid prn breakthrough pain History of Present Illness History of Present Illness Chief Complaint: increased pain, nausea, vomiting, poor oral intake Narrative: 69-year-old female diagnosed with metastatic breast cancer who started chemotherapy 2 weeks ago. She was diagnosed at the end of May with pulmonary embolism and placed on Eliquis. She presents to the emergency department because over the last 3 days she has had increased pain with minimal to no oral intake and decreased ability to take her medications. She was seen by home health nurses today who increased her fentanyl patch from 100 250 mcg. She is being followed by palliative care team and the patient and her family state they are considering transitioning into hospice care. Work-up in the emergency department revealed that she was hyponatremic and leukopenic although not pancytopenic and not neutropenic. Dr. Arley Savannah, emergency room attending, attended to the patient the emergency department and ordered a bolus of IV fluids and parenteral analgesics including repeated doses of IV Dilaudid. He discussed her CODE STATUS and the patient wishes to be a DNR/DNI but is agreeable to IV fluids and antibiotics if needed but declines to have any aggressive interventions such as central line placement or vasopressor support or cardiopulmonary resuscitation. Dr. Nuñez discussed her case with Aliyah White, visiting nurse with the palliative care team at home hospice care team. Patient is not currently a formal hospice patient yet but Aliyah agreed that the patient merits admission for symptom control and that hospice would be happy to consult on the patient. Patient is admitted to med/surgical floor for iv fluids, antiemetics and analgesics. Review of Systems Unobtainable due to (Unobtainable at this time as the patient is asleep) [facility] Medical History Aneurysm Asthma Blind right eye (Acute) Cancer related pain (Chronic) Dyspnea (Acute) Generalized weakness (Acute) History of cerebral aneurysm (Acute) HTN (hypertension) Malignant neoplasm of breast (female), unspecified site (Acute 08/28/12) INTERMEDIATE GRADE INTRADUCTAL CARCINOMA OF THE LEFT BREAST S/P MASTECTOMY AND AXILLARY NODE DISSECTION. Adjuvant RX and radiation Metastatic breast cancer (Chronic) to spine and other bones, lung, lymph nodes Neoplasm, breast Follow-up with [facility] this fall. Palliative care patient (Acute) Pulmonary embolism (Acute) Recurrent breast cancer (Chronic) passed her 5 year cure date in September 2018 Unintentional weight loss (Acute) Surgical History Abdominal hysterectomy (~1998) ovaries remain Colonoscopy - IV Sedation (05/21/16) Family History Mother , age 83 Hypertension Stroke Father , age 85 Heart disease Sister , age 64 Leukemia Sister , age 83 Stroke Sister No problems noted. Brother , age 84 Heart disease Brother No problems noted. Son No problems noted. Son No problems noted. Daughter No problems noted. Daughter No problems noted. Social History Smoking/Tobacco Use Status: Never Alcohol Intake: current Alcohol Intake frequency: a few times a week Alcohol type: wine Drug use: Never Substance use type: does not use Caregiver/Support person: Yes Household members: spouse Housing: house Do you need help understanding health information?: Rarely Pets and animals: No Sexually active: No Do you think of yourself as: straight/heterosexual Current gender identity: decline to answer What is your relationship status?: How often do you talk on the phone with friends or family?: twice per week How often do you get together with friends or relatives?: once per week How often do you attend congregational or worship services?: decline to answer Do you belong to any clubs or organized social groups?: yes Panel score (0-1 are the most socially isolated patients): 3 What type of physical activity do you participate in: walking and other Duration: 15-30 minutes/day Frequency: daily Leann/Buddhism: Shinto Special leann needs: No Seatbelt use: always Drive intox or ride w/intox transit mixer driver: No Do you feel safe at home: Yes Do you feel safe in your relationship?: Yes Additional Social history: Just passed 5 year cure date in September 2018. Not surprised at current findings. Knows she is very sick. Pain is uncontrolled, intolerable. Very winded with minimal exertion, weak,. Meds Home Medications and Allergies Home Medications Medication Instructions Recorded Confirmed Type Travatan 0.004% Eye Drop 1 drp OU DAILY drp 11/03/12 07/07/19 History calcium carbonate [Tums] 2,000 mg PO PRN PRN #90 tab.chew 11/25/14 07/07/19 History brimonidine 0.2 %-timolol 0.5 % 1 drp OD BID #5 m 05/17/18 07/07/19 Rx eye drops losartan 100 1 tab PO DAILY #90 tab-cap 05/17/18 07/07/19 Rx mg-hydrochlorothiazide 25 mg tablet levothyroxine 25 mcg capsule 37.5 mcg PO DAILY #145 cap 05/18/18 07/07/19 Rx amlodipine 5 mg tablet 5 mg PO DAILY #30 tab-cap 01/15/19 07/07/19 Rx metoprolol succinate 50 mg 50 mg PO DAILY #90 tab 03/28/19 07/07/19 Rx tablet,extended release 24 hr salmeterol 50 mcg/dose blister 1 inh IH BID #60 each 06/12/19 07/07/19 Rx powder for inhalation gabapentin 300 mg capsule 300 mg PO TID #90 cap 06/16/19 07/07/19 Rx fentanyl 100 mcg/hr transdermal 1 patch TD Q72H #10 each MDD 100 06/26/19 07/07/19 Rx patch mcg esomeprazole magnesium 40 mg 40 mg PO DAILY #30 cap MDD 1 06/27/19 07/07/19 Rx capsule,delayed release hydromorphone 4 mg tablet 4 mg PO Q4H PRN #90 tab MDD 20 mg 07/02/19 07/07/19 Rx Eliquis 5 mg PO BID 07/07/19 07/07/19 History lorazepam 0.5 mg PO PRN PRN 07/07/19 07/07/19 History ondansetron HCl [Zofran] 4 mg PO Q4-5H 07/07/19 07/07/19 History polyethylene glycol 3350 [Miralax] 17 gm PO PRN PRN 07/07/19 07/07/19 History scopolamine base 1 mg Q1-2D 07/07/19 07/07/19 History Allergies Allergy/AdvReac Type Severity Reaction Status Date / Time nickel Allergy Severe SWELLING; Verified 07/07/19 14:45 ITCH paclitaxel [From Taxol] Allergy Intermediate Cardiac Verified 07/07/19 14:45 Dysrythmia formaldehyde Allergy Unknown HANDS Verified 07/07/19 14:45 BREAKOUT; CRACK iodine Allergy Unknown Verified 07/07/19 14:45 doxycycline AdvReac Intermediate Nausea Verified 07/07/19 14:45 Exam Narrative Exam Narrative: Elderly female lying in semi-peng position asleep breathing through her mouth. Respirations are shallow and nonlabored. Neck is without JVD Lungs are clear to auscultation Heart is regular rate and rhythm without murmur rub or gallop. Abdomen is nondistended soft without bruits with hypoactive bowel sounds. Neuro: Patient is asleep and finally got some comfort from her pain and therefore I did not awaken her for her history and physical examination. She has no facial asymmetry. She has no obvious loss of muscle tone or muscular atrophy. Results Labs Result diagrams: 07/07/19 15:32 07/07/19 15:32 Labs: Laboratory Results - last 24 hr 07/07/19 07/07/19 07/07/19 15:32 15:32 18:50 WBC 2.90 L RBC 3.94 L Hgb 12.4 Hct 36.6 MCV 92.9 MCH 31.5 MCHC 33.9 RDW 14.6 Plt Count 202 MPV 9.8 Immature Gran % 0.3 Neutrophils % 76.6 Lymphocytes % 17.6 Monocytes % 3.4 Eosinophils % 1.4 Basophils % 0.7 Absolute Neutrophils 2.22 Absolute Lymphocytes 0.51 L Absolute Monocytes 0.10 L Absolute Eosinophils 0.04 Absolute Basophils 0.02 Sodium 130 L Potassium 3.8 Chloride 89 L Carbon Dioxide 33.7 H Anion Gap 7.3 BUN 13 Creatinine 0.73 Estimated GFR/1.73 m2 >= 60.00 Glucose 115 H Calcium 8.7 Magnesium 2.0 Total Bilirubin 0.4 AST 24 ALT 36 Alkaline Phosphatase 217 H Total Protein 6.4 Albumin 3.1 L Urine Color Yellow Urine Clarity Clear Urine pH 6.0 Ur Specific [place] 1.010 Urine Protein Negative Urine Ketones 40 H Urine Blood Negative Urine Nitrite Negative Urine Bilirubin Negative Urine Urobilinogen 0.2 Ur Leukocyte Esterase Negative Urine Glucose Negative Last Vital Signs Temp 36.2 C L 07/07/19 20:05 Pulse 95 H 07/07/19 20:05 Resp 15 07/07/19 20:05 BP 145/68 H 07/07/19 20:05 Pulse Ox 96 07/07/19 20:05
[2019-07-08] MEDS: Normal Saline Flush 10 ML SYR IVP ×2 (01:23→23:51)
[2019-07-08] MEDS: Normal Saline 1,000 ML 150 ML IV ×2 (01:23→07:13)
[2019-07-08] MEDS: Pantoprazole 40 MG VIAL IVP ×2 (01:24→23:51)
[2019-07-08 01:45] VITALS: BP 158/75; PULSE 101; RESP 15; TEMP 36.6; O2SAT 91
[2019-07-08] MEDS: Levothyroxine 75 MCG TAB 37.5 MCG PO (05:15)
[2019-07-08 07:04] LABS: Abs Immature Grans 0.01 k/cumm (0.0-0.09); Absolute Basophil Count 0.01 k/cumm (0.0-0.2); Absolute Eosinophil Count 0.05 k/cumm (0.0-0.7); Absolute Lymphocyte Count 0.53 k/cumm (1.2-3.4); Absolute Monocyte Count 0.08 k/cumm (0.11-0.7); Absolute Neutrophil Count 1.46 k/cumm (1.2-6.7); Basophils % 0.5; Eosinophils % 2.3; HCT 32.5 % (36.0-46.0); HGB 10.9 g/dL (12.0-15.5); Immature Grans % 0.5 %; Lymphocytes % 24.8; Mean Corp. HGB Concentration 33.5 g/dL (32.0-36.0); Mean Corpuscular Hemoglobin 31.5 pg (27.0-33.0); Mean Corpuscular Volume 93.9 fL (80-95); Mean Platelet Volume 9.3 fL (8.0-11.0); Monocytes % 3.7; Neutrophils % 68.2; Platelet Count 200 x1000/uL (130-400); RBC 3.46 m/cumm (4.00-5.20); RBC Distribution Width 14.8 % (11.7-14.6); White Blood Cell Count 2.14 k/cumm (4.4-10.8)
[2019-07-08 07:11] LABS: Anion Gap 6.6 mmol/L (3-11); BUN 10 mg/dL (7-18); CO2 30.4 mmol/L (21.0-32.0); CREATININE 0.72 mg/dL (0.55-1.02); Chloride 98 mmol/L (98-107); Glucose 95 mg/dL (74-106); Potassium 3.7 mmol/L (3.5-5.1); Sodium 135 mmol/L (136-145)
[2019-07-08] MEDS: Ondansetron 4 MG/2 ML VIAL IVP (07:12)
[2019-07-08 08:20] VITALS: BP 133/72; PULSE 93; RESP 18; TEMP 36.8; O2SAT 100
[2019-07-08] MEDS: Travoprost 0.004% Ophth Sol 2.5 ML BTL OU (09:36)
[2019-07-08] MEDS: amLODIPine 5 MG TAB PO (09:37)
[2019-07-08] MEDS: Metoprolol CR 50 MG TABCR PO (09:37)
[2019-07-08] MEDS: ACETAMINOPHEN 1,000 MG/100 ML BTL 400 MG IVPB (09:37)
[2019-07-08] MEDS: predniSONE 20 MG TAB 60 MG PO (09:37)
[2019-07-08] MEDS: Apixaban 5 MG TAB PO ×2 (09:37→19:23)
[2019-07-08] MEDS: Gabapentin 300 MG CAP PO ×3 (09:37→19:23)
[2019-07-08] MEDS: LORazepam 0.5 MG TAB PO (10:20)
--- NOTE | 2019-07-08 10:44 | PHARADMIT ---
Addendum entered by Velia Crane 07/09/19 16:27: pain-3/10 no VS or labs lorazepam discontinued, diazepam ordered PRN docusate and miralax scheduled bolus added to CADD order and directions to titrate if needed, pt currently comfortable per LABOR TRAINER ondansetron and pantoprazole changed to PO travaprost changed from daily to QHS possible d/c tomorrow home on hospice Addendum entered by Estrella Vogt 07/08/19 11:07: updated home meds not ordered: calcium carbonate [Tums] 2,000 mg PO PRN PRN #90 tab.chew losartan 100 mg-hydrochlorothiazide 25 mg tablet 1 tab PO DAILY #90 tab-cap fentanyl 100 mcg/hr transdermal patch 1 patch TD Q72H #10 each MDD 100 mcg esomeprazole magnesium 40 mg capsule,delayed release 40 mg PO DAILY #30 cap hydromorphone 4 mg tablet 4 mg PO Q4H PRN #90 tab MDD 20 mg 07/02/19 hydromorphone infusion started today Original Note: Admission Pharmacy Clinical Review DEHYDRATION, METASTATIC BREAST CA, POOR ORAL INTAKE Code Status DNR/DNI Current Weight 64.8 kg Renally Cleared and Narrow Therapeutic Index Meds CRCL ~53ML/MIN QTc Value / Action Taken 447 BP Control, Fever 158/75 AFEBRILE Electrolytes reviewed NA 135 DVT Prophylaxis APIXABAN Opiate Usage / Scheduled Bowel Regimen Ordered YES/PRN Plt/SCr for Heparin / Enoxaparin 200/0.72 INR for Warfarin NA H/H stable, WBC/Bands 10.9/32.5 WBC 2.14 Antibiotic appropriateness NA Cultures and Sensitivities NA Surgical ABX d/c within 24 hr NA DM control / Insulin Dosing NA Heart Failure (Check EF%) (CHAPIS's, B-Block, Diuretics) IV to PO Switch Home Meds Reviewed Home Meds Not Ordered calcium carbonate [Tums] 2,000 mg PO PRN PRN #90 tab.chew 11/25/14 [History Confirmed 07/07/19] losartan 100 mg-hydrochlorothiazide 25 mg tablet 1 tab PO DAILY #90 tab-cap 05/17/18 [Rx Confirmed 07/07/19] fentanyl 100 mcg/hr transdermal patch 1 patch TD Q72H #10 each MDD 100 mcg 06/26/19 [Rx Confirmed 07/07/19] esomeprazole magnesium 40 mg capsule,delayed release 40 mg PO DAILY #30 cap MDD 1 06/27/19 [Rx Confirmed 07/07/19] hydromorphone 4 mg tablet 4 mg PO Q4H PRN #90 tab MDD 20 mg 07/02/19 [Rx Confirmed 07/07/19] Eliquis 5 mg PO BID 07/07/19 [History Confirmed 07/07/19] lorazepam 0.5 mg PO PRN PRN 07/07/19 [History Confirmed 07/07/19] ondansetron HCl [Zofran] 4 mg PO Q4-5H 07/07/19 [History Confirmed 07/07/19] polyethylene glycol 3350 [Miralax] 17 gm PO PRN PRN 07/07/19 [History Confirmed 07/07/19] scopolamine base 1 mg Q1-2D 07/07/19 [History Confirmed 07/07/19] Active Medications Al Hydrox/Mg Hydrox/Simethicone (Mylanta Liquid) 30 ml PO Q2H PRN PRN Amlodipine Besylate (Norvasc) 5 mg PO DAILY [facility] Last Admin: 07/08/19 09:37 Dose: 5 mg Documented by: Apixaban (Eliquis) 5 mg PO BID [facility] Last Admin: 07/08/19 09:37 Dose: 5 mg Documented by: Brimonidine/Timolol (Combigan) 0 ml OD BID [facility] Last Admin: 07/08/19 09:36 Dose: 1 drp Documented by: Dimethicone/Zinc Oxide (Sandra Protect Cream) 0 gm TP PRN PRN Docusate Sodium (Colace) 100 mg PO TID PRN PRN Gabapentin (Neurontin) 300 mg PO TID [facility] Last Admin: 07/08/19 09:37 Dose: 300 mg Documented by: Sodium Chloride (Saline 1000ml Bag) 1,000 mls @ 150 mls/hr IV INFUSION [facility] Last Admin: 07/08/19 07:13 Dose: 150 mls/hr Documented by: Acetaminophen (Ofirmev) 1,000 mg in 100 mls @ 400 mls/hr IVPB Q8H [facility] Last Admin: 07/08/19 09:37 Dose: 400 mls/hr Documented by: Hydromorphone HCl 50 mg/ (Sodium Chloride) 250 mls @ 0 mls/hr IV INFUSION [facility]; Protocol IV Miscellaneous Supplies () 1 each IV DIRECTED [facility] Levothyroxine Sodium (Levothroid) 37.5 mcg PO DAILY@0600 [facility] Last Admin: 07/08/19 05:15 Dose: 37.5 mcg Documented by: Lorazepam (Ativan) 0.5 mg PO BID PRN PRN PRN Reason: anxiety Last Admin: 07/08/19 10:20 Dose: 0.5 mg Documented by: Magnesium Hydroxide (Milk Of Magnesia) 30 ml PO DAILY PRN PRN Metoprolol Succinate (Toprol Xl) 50 mg PO DAILY [facility] Last Admin: 07/08/19 09:37 Dose: 50 mg Documented by: Ondansetron HCl (Zofran Injection) 4 mg IVP Q4H PRN PRN Last Admin: 07/08/19 07:12 Dose: 4 mg Documented by: Pantoprazole Sodium (Protonix Injection) 40 mg IVP Q24H [facility] Last Admin: 07/08/19 01:24 Dose: 40 mg Documented by: Polyethylene Glycol (Miralax) 17 gm PO DAILY PRN PRN PRN Reason: Constipation Prednisone (Deltasone) 60 mg PO DAILY [facility] Stop: 07/12/19 08:31 Last Admin: 07/08/19 09:37 Dose: 60 mg Documented by: Salmeterol Xinafoate (Serevent Diskus) 0 puff IH BID [facility] Scopolamine HBr (Transderm-Scop) 1 mg TD Q48H [facility] Sodium Chloride (Saline Flush 10 Ml Syringe) 0 ml IVP PRN PRN Last Admin: 07/08/19 01:23 Dose: 30 ml Documented by: Travoprost (Travatan Z) 0 ml OU DAILY [facility] Last Admin: 07/08/19 09:36 Dose: 1 drp Documented by: Comments
[2019-07-08] MEDS: HYDROmorphone 50 MG in Normal Saline 245 ML IV (11:00)
--- NOTE | 2019-07-08 12:50 | W.PM.PROGNOT ---
Date of Service Date of service: 07/08/19 Time of Service: 12:50 Assessment and Plan Assessment and plan (1) Comfort measures only status: Start date: 07/08/19 Start time: 13:13 Status: Acute Assessment and plan: Fay wishes to be made comfortable, she is tired of being in pain and tired of being tired. She has decided she wants to be comfortable and go home. Her family has agreed to Fay's wishes. She is now FURNACE COMBINATION ANALYST with a diluadid drip at 1 mg/hr for pain. Her pain is a 4 at this time when it is was an 8 this morning. Hospice to see her tomorrow and transition her home where she wants to be. Continue to monitor pain. Steroid for pain as well. Antiemtics for nausea. Subjective Subjective Patient reports: other Interval history since last seen: Mrs. Gaffney discussed with me this morning that she is tired of being in pain. She wants to be comfortable, she just wants to sleep. Several times she expressed to me she was tired of being in pain. I discussed with her options to help her pain including comfort measures with transition to hospice. She was agreeable and wanted to be comfortable, fentynal was not helping her pain, she had been progressively been getting worse and tired. The family was called for a meeting to discuss Fay's wishes. At the time of the meeting Fay was resting from receiving both lorazepam and diluadid IV, pain level was a 4. Discussed with family in length about Fay's wishes and her desire to be home. Family was receptive asking questions and wanting what is best for Fay. Both her son and stated that she looked the most comfortable she had in days. Baudilio her is concerned about her going home and not having pain relief or continuing to have worsening uncontrollable nausea and vomiting. Explained to Baudilio that hospice would allow us to make her as comfortable as she can be, they would be able to offer better support and she could be at home where she really wants to be. He also states that her health has been progressively getting worse since receiving chemo shots in May, (3 total) and he has not been able to help her control her pain or nausea. Daughter mentioned by dignity, I recommended she have that conversation with hospice and reassured her, Fay will be followed and made sure she has everything she needs and wants to as comfortable as she can. After a lengthy discussion family agreed with patients wishes to make her FURNACE COMBINATION ANALYST with hospice. Hospice consulted. At this time we will continue to work on her comfort. Exam Narrative Exam Narrative: Resting in bed. NAD, respiration even and unlabored. Resting comfortable. Abd soft nontender. RRR, no murmur appreciated. She appears for the first time today her pain is controlled. Objective Objective Clinical Data: Abnormal lab results 07/07/19 07/07/19 07/07/19 Range/Units 15:32 15:32 18:50 WBC 2.90 L (4.4-10.8) k/cumm RBC 3.94 L (4.00-5.20) m/cumm Hgb (12.0-15.5) g/dL Hct (36.0-46.0) % RDW (11.7-14.6) % Absolute Lymphocytes 0.51 L (1.2-3.4) k/cumm Absolute Monocytes 0.10 L (0.11-0.7) k/cumm Sodium 130 L (136-145) mmol/L Chloride 89 L (98-107) mmol/L Carbon Dioxide 33.7 H (21.0-32.0) mmol/L Glucose 115 H (74-106) mg/dL Calcium (8.5-10.1) mg/dL Alkaline Phosphatase 217 H (46-116) U/L Albumin 3.1 L (3.4-5.0) g/dL Urine Ketones 40 H (Negative) mg/dL 07/08/19 07/08/19 Range/Units 06:50 06:50 WBC 2.14 L (4.4-10.8) k/cumm RBC 3.46 L (4.00-5.20) m/cumm Hgb 10.9 L (12.0-15.5) g/dL Hct 32.5 L (36.0-46.0) % RDW 14.8 H (11.7-14.6) % Absolute Lymphocytes 0.53 L (1.2-3.4) k/cumm Absolute Monocytes 0.08 L (0.11-0.7) k/cumm Sodium 135 L (136-145) mmol/L Chloride (98-107) mmol/L Carbon Dioxide (21.0-32.0) mmol/L Glucose (74-106) mg/dL Calcium 8.0 L (8.5-10.1) mg/dL Alkaline Phosphatase (46-116) U/L Albumin (3.4-5.0) g/dL Urine Ketones (Negative) mg/dL Vital Signs Temperature 36.8 C 07/08/19 08:20 Temperature Source Tympanic 07/08/19 08:20 Pulse 93 H 07/08/19 08:20 Pulse Rhythm Regular 07/08/19 00:05 Respiratory Rate 18 07/08/19 08:20 Respiratory Effort Non-Labored 07/08/19 00:05 Respiratory Depth Normal 07/08/19 00:05 Respiratory Pattern Normal 07/08/19 00:05 Blood Pressure 133/72 07/08/19 08:20 Blood Pressure Position Supine 07/07/19 14:37 Pulse Oximetry 100 07/08/19 08:20 Oxygen Delivery Method Room Air 07/08/19 08:20 Oxygen Flow Rate 0 07/08/19 08:20 Pain Level 0 07/08/19 08:20 Comment 07/08/19 01:45 Intake & Output 07/07/19 07/08/19 07/08/19 23:59 11:59 23:59 Intake Total 1100 / 1100 2305 / 2305 Output Total 800 / 800 Balance 1100 / 1100 1505 / 1505 Weight 64.1 kg 64.8 kg Intake: IV 1100 / 1100 1905 / 1905 Oral 400 / 400 Output: Urine 800 / 800 Other: Urine Color Yellow Urine Appearance Clear Clear Urine Odor Normal Voiding Methods Toilet Laboratory Results WBC 2.14 k/cumm (4.4-10.8) L 07/08/19 06:50 RBC 3.46 m/cumm (4.00-5.20) L 07/08/19 06:50 Hgb 10.9 g/dL (12.0-15.5) L 07/08/19 06:50 Hct 32.5 % (36.0-46.0) L 07/08/19 06:50 MCV 93.9 fL (80-95) 07/08/19 06:50 MCH 31.5 pg (27.0-33.0) 07/08/19 06:50 MCHC 33.5 g/dL (32.0-36.0) 07/08/19 06:50 RDW 14.8 % (11.7-14.6) H 07/08/19 06:50 Plt Count 200 x1000/uL (130-400) 07/08/19 06:50 MPV 9.3 fL (8.0-11.0) 07/08/19 06:50 Immature Gran % 0.5 % 07/08/19 06:50 Neutrophils % 68.2 07/08/19 06:50 Lymphocytes % 24.8 07/08/19 06:50 Monocytes % 3.7 07/08/19 06:50 Eosinophils % 2.3 07/08/19 06:50 Basophils % 0.5 07/08/19 06:50 Absolute Neutrophils 1.46 k/cumm (1.2-6.7) 07/08/19 06:50 Absolute Lymphocytes 0.53 k/cumm (1.2-3.4) L 07/08/19 06:50 Absolute Monocytes 0.08 k/cumm (0.11-0.7) L 07/08/19 06:50 Absolute Eosinophils 0.05 k/cumm (0.0-0.7) 07/08/19 06:50 Absolute Basophils 0.01 k/cumm (0.0-0.2) 07/08/19 06:50 Sodium 135 mmol/L (136-145) L 07/08/19 06:50 Potassium 3.7 mmol/L (3.5-5.1) 07/08/19 06:50 Chloride 98 mmol/L (98-107) 07/08/19 06:50 Carbon Dioxide 30.4 mmol/L (21.0-32.0) 07/08/19 06:50 Anion Gap 6.6 mmol/L (3-11) 07/08/19 06:50 BUN 10 mg/dL (7-18) 07/08/19 06:50 Creatinine 0.72 mg/dL (0.55-1.02) 07/08/19 06:50 Estimated GFR/1.73 m2 >= 60.00 (mL/min/1.73m2) 07/08/19 06:50 Glucose 95 mg/dL (74-106) 07/08/19 06:50 Calcium 8.0 mg/dL (8.5-10.1) L 07/08/19 06:50 Magnesium 2.0 mg/dL (1.8-2.4) 07/07/19 15:32 Total Bilirubin 0.4 mg/dL (0.2-1.0) 07/07/19 15:32 AST 24 U/L (15-37) 07/07/19 15:32 ALT 36 U/L (14-59) 07/07/19 15:32 Alkaline Phosphatase 217 U/L (46-116) H 07/07/19 15:32 Total Protein 6.4 g/dL (6.4-8.2) 07/07/19 15:32 Albumin 3.1 g/dL (3.4-5.0) L 07/07/19 15:32 Urine Color Yellow (Yellow) 07/07/19 18:50 Urine Clarity Clear (Clear) 07/07/19 18:50 Urine pH 6.0 (5-8) 07/07/19 18:50 Ur Specific [place] 1.010 (1.005-1.025) 07/07/19 18:50 Urine Protein Negative mg/dL (Negative) 07/07/19 18:50 Urine Ketones 40 mg/dL (Negative) H 07/07/19 18:50 Urine Blood Negative (Negative) 07/07/19 18:50 Urine Nitrite Negative (Negative) 07/07/19 18:50 Urine Bilirubin Negative (Negative) 07/07/19 18:50 Urine Urobilinogen 0.2 EU/dL (Up TO 0.2) 07/07/19 18:50 Ur Leukocyte Esterase Negative (Negative) 07/07/19 18:50 Urine Glucose Negative mg/dL (Negative) 07/07/19 18:50
--- NOTE | 2019-07-08 18:15 | INITIAL_ITS ---
- If Service Date Differs Date of service: 07/08/19 Time of Service: 18:15 Care Management Initial Assess REASON FOR HOSPITALIZATION:: Dehydration, metastatic breast cancer, poor oral intake PAST MEDICAL HISTORY/PAST SURGICAL HISTORY:: Medical History . Aneurysm. Asthma. Blind right eye (Acute). Cancer related pain (Chronic). Dyspnea (Acute). Generalized weakness (Acute). History of cerebral aneurysm (Acute). HTN (hypertension). Malignant neoplasm of breast (female), unspecified site (Acute 08/28/12). 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 Adjuvant RX and radiation. Metastatic breast cancer (Chronic). to spine and other bones, lung, lymph nodes. Neoplasm, breast. Follow-up with [facility] this fall. Palliative care patient (Acute). Pulmonary embolism (Acute). Recurrent breast cancer (Chronic). passed her 5 year cure date in September 2018. Unintentional weight loss (Acute). Surgical History . Abdominal hysterectomy (~1998). ovaries remain. Colonoscopy - IV Sedation (05/21/16) PREVIOUS FUNCTIONAL STATUS/SOCIAL/FAMILY SUPPORTS:: Fay lives in [place] with her , Baudilio. They have four adult children- Flo, Roxy, Elbert, and Tennille. They are all very supportive of their mother's health care goals and wishes. Fay was previously independent, having passed the 5 year 'cure date' in September 2018. Recently she was diagnosed with bone metastasis by [facility]. CURRENT FUNCTIONAL STATUS:: Fay was lying in bed when VALENTIN met with her. Her and three of her children were with her, as well as the provider who called the meeting. Fay had previously expressed to the provider that she no longer wants medical intervention, and that her wishes are to be comfortable, out of pain, and home. VALENTIN provided support to Fay and her family while discussing her health care goals and wishes, as she requested to be transitioned to comfort care only. Hospice has been consulted and will meet with Fay and her family tomorrow. CM provided information regarding end of life options, including arrangements. VALENTIN will continue to follow and provide support to Fay, her family, and staff. ADVANCE DIRECTIVES:: On file, Baudilio listed as agent. Rita listed as alterna te agent. All children listed to be consulted. Has patient been provided with information about the portal?: Yes Did the patient sign up for the portal?: Yes (previously signed up) CODE STATUS:: DNR/DNI INSURANCE COVERAGE / FINANCIAL ISSUES:: MCR/ BCBS CURRENT HOME/COMMUNITY SERVICES/EQUIPMENT:: Fay is currently a Palliative patient, but will transition to Hospice tomorrow. She already has a hospital bed at home. PRIMARY CARE PHYSICIAN:: Mago Velez POTENTIAL DISCHARGE NEEDS:: Hospice support, possible DME needs, pump for pain medication PATIENT/FAMILY EDUCATION NEEDS:: Discussion regarding Hopice support with pt, family and Hospice staff. ANTICIPATED BARRIERS TO DISCHARGE:: None anticipate at this time. TRANSPORTATION:: TBD PLAN:: Anticipate Fay will return home once Hospice support is in place. Transportation TBD, depending on mobility. Family will be there to help support Fay and each other. CM will continue to follow.
[2019-07-09] MEDS: HYDROmorphone 100 MG in CADD PUMP CASSETTE 1 EACH, Normal Saline 90 ML SC INF ×2 (05:02)
[2019-07-09] MEDS: Levothyroxine 75 MCG TAB 37.5 MCG PO (05:23)
--- NOTE | 2019-07-09 08:33 | W.PALLCONSUL ---
Date of service: 07/09/19 Time of Service: 08:34 History of Present Illness Narrative: I was asked to see Fay for a hospice consult. She is a 69-year-old woman with widespread metastatic breast cancer. She is presently receiving infusions regularly. She her pain increased and she became dehydrated and nauseated. She came to the hospital with the intent of rehydration. During the course of admission she was made comfort measures. I am seeing her to determine if she is ready for hospice. I have met Fay over the when her regular palliative care doctor, Dr. Rogers, was away. Dr. Rogers will be back tomorrow and will follow-up with Fay at that time. Fay states that she has been struggling with pain, her activities of daily living, and her desire to not burden her family. She has been going through the infusions with her oncologist. She is concerned that if she stops the infusions that her pain will worsen and that her family will have more of a burden. Consults Consult date: 07/09/19 Requesting physician: Melanie Davies Assessment and Plan Assessment and plan (1) Dehydration: Status: Acute (2) Metastatic breast cancer: Status: Chronic (3) Discharge planning issues: Status: Acute Assessment and plan: I was asked to see Fay to discuss discharge planning and hospice. Fay states that she does not know if she is yet at the hospice stage. She is feeling better and does not know if she should give up her chemotherapy. She presently is on comfort measures only and is on a Dilaudid CADD pump. She says that her pain is well controlled. She is no longer vomiting. Still she does not know what she should do next. She would like to speak with her . He is not here and they were unable to reach him by phone. I will reach out to her oncologist today and discussed with the oncologist the utility of further chemotherapy. I will also meet back with Jaclyn and her later today. Please note I am seeing Fay for palliative care. Her regular palliative care doctor is Dr. Rogers. She is off today. Tomorrow Dr. Rogers will take over Fay's care. I did speak with Dr. Giron regarding her care Dr. Giron said that he would support hospice and he would also support continuing with infusions. He felt that generally he likes to give it 3 months on the infusions before he decides whether or not a person should continue or moved to hospice. I will discuss this with the patient tonight when I go back to see her. I have spoken with the hospice team and care management. She did have a hospice consult. At that time she did make the decision to go on hospice. I will see her later today and complete the CO LST form if it is not already done. Review of Systems Narrative: She does not feel well. She has chronic and intermittently sharp pain in her right leg. She pretty much gets around by wheelchair. She has pain in many other areas of her body. She did not do well yesterday with the IV insertion. She now has a CADD pump subcutaneous for her Dilaudid drip. She is having less nausea today [facility] Medical History Aneurysm Asthma Blind right eye (Acute) Cancer related pain (Chronic) Dyspnea (Acute) Generalized weakness (Acute) History of cerebral aneurysm (Acute) HTN (hypertension) Malignant neoplasm of breast (female), unspecified site (Acute 08/28/12) INTERMEDIATE GRADE INTRADUCTAL CARCINOMA OF THE LEFT BREAST S/P MASTECTOMY AND AXILLARY NODE DISSECTION. Adjuvant RX and radiation Metastatic breast cancer (Chronic) to spine and other bones, lung, lymph nodes Neoplasm, breast Follow-up with [facility] this fall. Palliative care patient (Acute) Pulmonary embolism (Acute) Recurrent breast cancer (Chronic) passed her 5 year cure date in September 2018 Unintentional weight loss (Acute) Surgical History Abdominal hysterectomy (~1998) ovaries remain Colonoscopy - IV Sedation (05/21/16) Family History Mother , age 83 Hypertension Stroke Father , age 85 Heart disease Sister , age 64 Leukemia Sister , age 83 Stroke Sister No problems noted. Brother , age 84 Heart disease Brother No problems noted. Son No problems noted. Son No problems noted. Daughter No problems noted. Daughter No problems noted. Social History Smoking/Tobacco Use Status: Never Alcohol Intake: current Alcohol Intake frequency: a few times a week Alcohol type: wine Drug use: Never Substance use type: does not use Caregiver/Support person: Yes Household members: spouse Housing: house Do you need help understanding health information?: Rarely Pets and animals: No Sexually active: No Do you think of yourself as: straight/heterosexual Current gender identity: decline to answer What is your relationship status?: How often do you talk on the phone with friends or family?: twice per week How often do you get together with friends or relatives?: once per week How often do you attend mandaen or voodoo services?: decline to answer Do you belong to any clubs or organized social groups?: yes Panel score (0-1 are the most socially isolated patients): 3 What type of physical activity do you participate in: walking and other Duration: 15-30 minutes/day Frequency: daily Leann/Anabaptist: Alevism Special leann needs: No Seatbelt use: always Drive intox or ride w/intox trackless trolley driver: No Do you feel safe at home: Yes Do you feel safe in your relationship?: Yes Additional Social history: Just passed 5 year cure date in September 2018. Not surprised at current findings. Knows she is very sick. Pain is uncontrolled, intolerable. Very winded with minimal exertion, weak,. Exam Narrative Exam Narrative: She is lying in bed. She gets a little flustered when she is trying to call her on the phone. I did not have her get out of bed. Her heart was regular Lungs shallow breaths. Abdomen tender Results Last Vital Signs Temp 98.2 F 07/08/19 08:20 Pulse 93 H 07/08/19 08:20 Resp 18 07/08/19 08:20 BP 133/72 07/08/19 08:20 Pulse Ox 100 07/08/19 08:20 Labs Result diagrams: 07/08/19 06:50 07/08/19 06:50
[2019-07-09] MEDS: Polyethylene Glycol 3350 17 GM PACKET PO (09:44)
[2019-07-09] MEDS: Scopolamine 1 MG/3 DAYS PATCH TD (09:45)
[2019-07-09] MEDS: amLODIPine 5 MG TAB PO (09:46)
[2019-07-09] MEDS: Docusate Sodium 100 MG CAP PO ×2 (09:46→20:50)
[2019-07-09] MEDS: predniSONE 20 MG TAB 60 MG PO (09:46)
[2019-07-09] MEDS: Apixaban 5 MG TAB PO ×2 (09:46→20:49)
[2019-07-09] MEDS: Gabapentin 300 MG CAP PO ×3 (09:46→20:50)
[2019-07-09] MEDS: Metoprolol CR 50 MG TABCR PO (09:46)
[2019-07-09 10:35] VITALS: O2SAT 99
[2019-07-09] MEDS: Promethazine 25 MG TAB PO (11:35)
--- NOTE | 2019-07-09 13:50 | W.NUTCONSULT ---
Date of service: 07/09/19 Time of Service: 13:50 Nutritional Consult ASSESSMENT: 69 year old female admitted for dehydration. PMH: metastatic breast cancer, chemox 2 weeks, esophagitis, several weeks of n/v and poor intake and unintentional weight loss. Has not decided if wants to discharge on hospice care. Following regular meal plan with poor intake. Met with Jaclyn and family who both report eating more than documented. Reviewed nutrient and fluid needs for weight maintenance. Will follow weight trends and intervene as warranted. Diet Record: <500 kcal Estimated needs: 4501-9608 kcal, 60-70 g protein, 1800 ml fluid At high nutritional risk in view of poor intake, unintentional weight loss. Unclear if intake greater than documented. Will follow closely and intervene as needed for optimal intake. INTERVENTION: educated on nutrient and fluid needs MONITORING AND EVALUATION: weight, po intake labs Time Spent in Nutritional Counseling and Treatment: 15 min spent face to face
--- NOTE | 2019-07-09 13:55 | W.PM.PROGNOT ---
Date of Service Date of service: 07/09/19 Time of Service: 13:55 Assessment and Plan Assessment and plan (1) Comfort measures only status: Status: Acute Assessment and plan: Fay is aware she is dying. She understands she can be comfortable at home. after discussion with Fay and her family she has decided she would like to be comfortable at home, she wants to at home. Her main concern at this time is pain management and being comfortable. Possible discharge tomorrow with hospice. Subjective Subjective Patient reports: feels better Interval history since last seen: Feeling better today. Pain better controlled. She knows she is dying and wants to focus on pain control at this time. She is angry and has not processed her illness, but with family at bedside realistic to illness. 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 Hospice into see patient. Plan is to set up services for tomorrow. Switch to CAD pump for home and d/c home with hospice tomorrow. Exam Narrative Exam Narrative: Sitting up in chair. NAD, respiration even and unlabored. AAOx3 with brief periods of confusion. Abd soft nontender. RRR, no murmur appreciated. She appears comfortable. Objective Objective Clinical Data: Vital Signs Temperature 36.8 C 07/08/19 08:20 Temperature Source Tympanic 07/08/19 08:20 Pulse 93 H 07/08/19 08:20 Pulse Rhythm Regular 07/08/19 00:05 Respiratory Rate 18 07/08/19 08:20 Respiratory Effort 07/09/19 07:50 Respiratory Depth Normal 07/08/19 23:53 Respiratory Pattern Normal 07/08/19 23:53 Blood Pressure 133/72 07/08/19 08:20 Blood Pressure Position Supine 07/07/19 14:37 Pulse Oximetry 99 07/09/19 10:35 Oxygen Delivery Method Room Air 07/09/19 10:35 Oxygen Flow Rate 0 07/09/19 10:35 Pain Level 0 07/08/19 08:20 Comment 07/08/19 01:45 Intake & Output 07/08/19 07/09/19 07/09/19 23:59 11:59 23:59 Intake Total 1152.5 / 3577.5 80 / 80 Output Total 300 / 300 Balance 1152.5 / 2677.5 80 / -220 -300 / -220 Intake: IV 852.5 / 2757.5 80 / 80 Oral 300 / 820 Output: Urine 300 / 300 Other: Urine Color Yellow Yellow Urine Appearance Clear Clear Urine Odor None Comment VOID X 1, NOT MEASURED (MISSED HAT) Patient requested the hat out of toilet. Voiding Methods Toilet Toilet Toilet Laboratory Results WBC 2.14 k/cumm (4.4-10.8) L 07/08/19 06:50 RBC 3.46 m/cumm (4.00-5.20) L 07/08/19 06:50 Hgb 10.9 g/dL (12.0-15.5) L 07/08/19 06:50 Hct 32.5 % (36.0-46.0) L 07/08/19 06:50 MCV 93.9 fL (80-95) 07/08/19 06:50 MCH 31.5 pg (27.0-33.0) 07/08/19 06:50 MCHC 33.5 g/dL (32.0-36.0) 07/08/19 06:50 RDW 14.8 % (11.7-14.6) H 07/08/19 06:50 Plt Count 200 x1000/uL (130-400) 07/08/19 06:50 MPV 9.3 fL (8.0-11.0) 07/08/19 06:50 Immature Gran % 0.5 % 07/08/19 06:50 Neutrophils % 68.2 07/08/19 06:50 Lymphocytes % 24.8 07/08/19 06:50 Monocytes % 3.7 07/08/19 06:50 Eosinophils % 2.3 07/08/19 06:50 Basophils % 0.5 07/08/19 06:50 Absolute Neutrophils 1.46 k/cumm (1.2-6.7) 07/08/19 06:50 Absolute Lymphocytes 0.53 k/cumm (1.2-3.4) L 07/08/19 06:50 Absolute Monocytes 0.08 k/cumm (0.11-0.7) L 07/08/19 06:50 Absolute Eosinophils 0.05 k/cumm (0.0-0.7) 07/08/19 06:50 Absolute Basophils 0.01 k/cumm (0.0-0.2) 07/08/19 06:50 Sodium 135 mmol/L (136-145) L 07/08/19 06:50 Potassium 3.7 mmol/L (3.5-5.1) 07/08/19 06:50 Chloride 98 mmol/L (98-107) 07/08/19 06:50 Carbon Dioxide 30.4 mmol/L (21.0-32.0) 07/08/19 06:50 Anion Gap 6.6 mmol/L (3-11) 07/08/19 06:50 BUN 10 mg/dL (7-18) 07/08/19 06:50 Creatinine 0.72 mg/dL (0.55-1.02) 07/08/19 06:50 Estimated GFR/1.73 m2 >= 60.00 (mL/min/1.73m2) 07/08/19 06:50 Glucose 95 mg/dL (74-106) 07/08/19 06:50 Calcium 8.0 mg/dL (8.5-10.1) L 07/08/19 06:50 Magnesium 2.0 mg/dL (1.8-2.4) 07/07/19 15:32 Total Bilirubin 0.4 mg/dL (0.2-1.0) 07/07/19 15:32 AST 24 U/L (15-37) 07/07/19 15:32 ALT 36 U/L (14-59) 07/07/19 15:32 Alkaline Phosphatase 217 U/L (46-116) H 07/07/19 15:32 Total Protein 6.4 g/dL (6.4-8.2) 07/07/19 15:32 Albumin 3.1 g/dL (3.4-5.0) L 07/07/19 15:32 Urine Color Yellow (Yellow) 07/07/19 18:50 Urine Clarity Clear (Clear) 07/07/19 18:50 Urine pH 6.0 (5-8) 07/07/19 18:50 Ur Specific [place] 1.010 (1.005-1.025) 07/07/19 18:50 Urine Protein Negative mg/dL (Negative) 07/07/19 18:50 Urine Ketones 40 mg/dL (Negative) H 07/07/19 18:50 Urine Blood Negative (Negative) 07/07/19 18:50 Urine Nitrite Negative (Negative) 07/07/19 18:50 Urine Bilirubin Negative (Negative) 07/07/19 18:50 Urine Urobilinogen 0.2 EU/dL (Up TO 0.2) 07/07/19 18:50 Ur Leukocyte Esterase Negative (Negative) 07/07/19 18:50 Urine Glucose Negative mg/dL (Negative) 07/07/19 18:50
--- NOTE | 2019-07-09 16:18 | CHAPLAIN ---
Fay and her family were meeting with the NELLY Beauchamp and VALENTIN aDiley when I stopped in, Neris Qasim from Hospice, joined the conversation later. Quynh was explaining to Fay and her family the options of continuing with curative treatments as well as the option of going focusing on comfort and going on to hospice. Family members had good questions about ADs, COLST forms and the possible use of Act 39, along with more logistical concerns about medical equipment and nursing visits. I let the Fay and her family know that through Hospice they would have access to Rev. Francesca Balbuena, the fur cutting machine operator. Fay said she has attended a [employer] in the past, but was raised Episcopal and Fr. Rey visited her the last time she was here. She asked if he could visit again. He usually visits on Tuesday, but I also left a message for him and asked him to see Fay. Fay's son asked about her prognosis, as family members, who all live out of town, figure how they can arrange time to be with their parents. Neris suggested the ask Dr. Gee more about that when she returns to see them this afternoon. If Fay decided to use hospice care, she would likely be discharged home tomorrow and be admitted to hospice. Fay explained that she has experience significant pain, enough that she wanted to end it, but then also since has turned 180 degrees, as her said, and is feeling good, so the idea of not continuing treatment doesn't make sense when she is feeling so well. They will make a final decision with Dr. Gee this afternoon.
--- NOTE | 2019-07-09 18:46 | PDOC.CMPRO ---
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 Her family is very concerned about her pain being managed at home, which will be addressed on Hospice. Her pain is currently under control and she was able to sit up and communicate well today. CM and provider had a meeting with the family regarding Hospice and answering questions they had about the discharge plan. CM contacted Hospice, who will complete a same day admission, and requested her discharge to be early, around 11am. CM will continue to follow. A: Fay is a 69 year old female admitted to [facility] on 07/07/2019 for Dehydration, Metastatic cancer, MOLECULAR PATHOLOGIST. P: Anticipate Jaclyn will return home with a same day Hospice admission on 07/10/2019. Family will transport via private vehicle. CM will continue to support Fay, family and staff.
[2019-07-09] MEDS: Travoprost 0.004% Ophth Sol 2.5 ML BTL OU (20:50)
--- NOTE | 2019-07-09 20:59 | W.PALPGNOTE ---
Date of service: 07/09/19 Time of Service: 18:59 Assessment and Plan Assessment and plan (1) Comfort measures only status: Status: Acute (2) Cancer related pain: Status: Chronic (3) Discharge planning issues: Status: Acute Assessment and plan: Fay and I again discussed her oncologist recommendations i.e. that he would support her whether she went through hospice or continued with infusions. I did explain to her that if she goes into hospice that she would be stopping the infusions. They had a list of questions for me I answered these to the best of my ability and they were comfortable with the answers. The plan is for her to go home with the Dilaudid CADD pump. Her pain is well controlled at this time and she does not appear nauseous. The pump is set for 1 mg/h with boluses of 0.5 mg every 30 minutes. We did complete the CO LST form. She is a DO NOT RESUSCITATE, DO NOT INTUBATE, no transportation, no feeding tube, no further IVs, she would like to decide on antibiotics if the need arises. I have spent more than 50% of time in counseling with this patient. This document was created by [employer] and may contain grammatical and translation errors. Subjective Subjective Interval history since last seen: Met with Fay, her , son Flo, and daughter. We discussed Fay's decision to go with hospice care. We also reviewed the CO LST form and discussed choices. Exam Narrative Exam Narrative: Fay is sitting in bed. Many times she was a bit fidgety and did not really seem to know what she wanted. She would forget things midsentence. She was able to pivot to stand and then sit at the commode. She was Not quite as crisp as she had been this morning although definitely was able to make her wants and needs known Objective Objective Clinical Data: Vital Signs Temperature 98.2 F 07/08/19 08:20 Temperature Source Tympanic 07/08/19 08:20 Pulse 93 H 07/08/19 08:20 Pulse Rhythm Regular 07/08/19 00:05 Respiratory Rate 18 07/08/19 08:20 Respiratory Effort Non-Labored 07/09/19 15:15 Respiratory Depth Normal 07/09/19 15:15 Respiratory Pattern Normal 07/09/19 15:15 Blood Pressure 133/72 07/08/19 08:20 Blood Pressure Position Supine 07/07/19 14:37 Pulse Oximetry 99 07/09/19 10:35 Oxygen Delivery Method Room Air 07/09/19 18:41 Oxygen Flow Rate 0 07/09/19 18:41 Pain Level 3 07/09/19 15:24 Comment 07/08/19 01:45 Intake & Output 07/08/19 07/09/19 07/09/19 23:59 11:59 23:59 Intake Total 1152.5 / 3577.5 80 / 200 120 / 200 Output Total 300 / 300 Balance 1152.5 / 2677.5 80 / -100 -180 / -100 Intake: IV 852.5 / 2757.5 80 / 80 Oral 300 / 820 120 / 120 Output: Urine 300 / 300 Other: Urine Color Yellow Yellow Urine Appearance Clear Clear Urine Odor None Comment VOID X 1, NOT MEASURED (MISSED HAT) Patient requested the hat out of toilet. Voiding Methods Toilet Toilet Toilet Laboratory Results WBC 2.14 k/cumm (4.4-10.8) L 07/08/19 06:50 RBC 3.46 m/cumm (4.00-5.20) L 07/08/19 06:50 Hgb 10.9 g/dL (12.0-15.5) L 07/08/19 06:50 Hct 32.5 % (36.0-46.0) L 07/08/19 06:50 MCV 93.9 fL (80-95) 07/08/19 06:50 MCH 31.5 pg (27.0-33.0) 07/08/19 06:50 MCHC 33.5 g/dL (32.0-36.0) 07/08/19 06:50 RDW 14.8 % (11.7-14.6) H 07/08/19 06:50 Plt Count 200 x1000/uL (130-400) 07/08/19 06:50 MPV 9.3 fL (8.0-11.0) 07/08/19 06:50 Immature Gran % 0.5 % 07/08/19 06:50 Neutrophils % 68.2 07/08/19 06:50 Lymphocytes % 24.8 07/08/19 06:50 Monocytes % 3.7 07/08/19 06:50 Eosinophils % 2.3 07/08/19 06:50 Basophils % 0.5 07/08/19 06:50 Absolute Neutrophils 1.46 k/cumm (1.2-6.7) 07/08/19 06:50 Absolute Lymphocytes 0.53 k/cumm (1.2-3.4) L 07/08/19 06:50 Absolute Monocytes 0.08 k/cumm (0.11-0.7) L 07/08/19 06:50 Absolute Eosinophils 0.05 k/cumm (0.0-0.7) 07/08/19 06:50 Absolute Basophils 0.01 k/cumm (0.0-0.2) 07/08/19 06:50 Sodium 135 mmol/L (136-145) L 07/08/19 06:50 Potassium 3.7 mmol/L (3.5-5.1) 07/08/19 06:50 Chloride 98 mmol/L (98-107) 07/08/19 06:50 Carbon Dioxide 30.4 mmol/L (21.0-32.0) 07/08/19 06:50 Anion Gap 6.6 mmol/L (3-11) 07/08/19 06:50 BUN 10 mg/dL (7-18) 07/08/19 06:50 Creatinine 0.72 mg/dL (0.55-1.02) 07/08/19 06:50 Estimated GFR/1.73 m2 >= 60.00 (mL/min/1.73m2) 07/08/19 06:50 Glucose 95 mg/dL (74-106) 07/08/19 06:50 Calcium 8.0 mg/dL (8.5-10.1) L 07/08/19 06:50 Magnesium 2.0 mg/dL (1.8-2.4) 07/07/19 15:32 Total Bilirubin 0.4 mg/dL (0.2-1.0) 07/07/19 15:32 AST 24 U/L (15-37) 07/07/19 15:32 ALT 36 U/L (14-59) 07/07/19 15:32 Alkaline Phosphatase 217 U/L (46-116) H 07/07/19 15:32 Total Protein 6.4 g/dL (6.4-8.2) 07/07/19 15:32 Albumin 3.1 g/dL (3.4-5.0) L 07/07/19 15:32 Urine Color Yellow (Yellow) 07/07/19 18:50 Urine Clarity Clear (Clear) 07/07/19 18:50 Urine pH 6.0 (5-8) 07/07/19 18:50 Ur Specific [place] 1.010 (1.005-1.025) 07/07/19 18:50 Urine Protein Negative mg/dL (Negative) 07/07/19 18:50 Urine Ketones 40 mg/dL (Negative) H 07/07/19 18:50 Urine Blood Negative (Negative) 07/07/19 18:50 Urine Nitrite Negative (Negative) 07/07/19 18:50 Urine Bilirubin Negative (Negative) 07/07/19 18:50 Urine Urobilinogen 0.2 EU/dL (Up TO 0.2) 07/07/19 18:50 Ur Leukocyte Esterase Negative (Negative) 07/07/19 18:50 Urine Glucose Negative mg/dL (Negative) 07/07/19 18:50
[2019-07-10] MEDS: Levothyroxine 75 MCG TAB 37.5 MCG PO (06:33)
[2019-07-10] MEDS: Metoprolol CR 50 MG TABCR PO (07:38)
[2019-07-10] MEDS: Apixaban 5 MG TAB PO (07:38)
[2019-07-10] MEDS: amLODIPine 5 MG TAB PO (07:39)
[2019-07-10] MEDS: predniSONE 20 MG TAB 60 MG PO (07:39)
[2019-07-10] MEDS: Docusate Sodium 100 MG CAP PO (07:39)
[2019-07-10] MEDS: Gabapentin 300 MG CAP PO (07:39)
[2019-07-10] MEDS: Polyethylene Glycol 3350 17 GM PACKET PO (07:40)
[2019-07-10] MEDS: Pantoprazole 40 MG TABCR PO (07:47)
--- NOTE | 2019-07-10 10:08 | W.PM.DS.N ---
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 She presented to the hospital for dehydration secondary to nausea and pain. she is followed by Dr Proctor outpatient on palliative care. She was diagnosed at the end of May with pulmonary embolism and placed on Eliquis. While hospitalized she underwent a hospice consultation and was made comfort measures only. She was switched to CAD pump for home use and will be going home on hospice. Her pain is better managed. she is eating and drinking some and in no acute distress. she is voiding well. she is being discharged by private vehicle with family to home on hospice services. Medications will be directed by hospice. Home Meds and New Rx's Prescriptions: Continued amlodipine 5 mg tablet 5 mg PO DAILY Qty: 30 RF: 11 metoprolol succinate 50 mg tablet extended release 24 hr 50 mg PO DAILY Qty: 90 RF: 4 TRAVATAN 0.004% EYE DROP 5 ML drops 1 drp OU DAILY RF: 0 calcium carbonate [Tums] 200 MG tablet,chewable 2,000 mg PO PRN PRNQty: 90 RF: 0 Combigan 0.2-0.5 % drops 1 drp OD BID Qty: 5 RF: 4 losartan-hydrochlorothiazide [Hyzaar] 100-25 mg tablet 1 tab PO DAILY Qty: 90 RF: 4 levothyroxine 25 mcg capsule 37.5 mcg PO DAILY Qty: 145 RF: 4 Serevent Diskus 50 mcg/dose blister with device 1 inh IH BID Qty: 60 RF: 2 gabapentin 300 mg capsule 300 mg PO TID Qty: 90 RF: 3 ondansetron HCl [Zofran] 4 mg Tablet 4 mg PO Q4-5H RF: 0 Eliquis 5 mg Tablet 5 mg PO BID RF: 0 lorazepam 0.5 mg tablet 0.5 mg PO PRN PRN (Reason: anxiety) RF: 0 polyethylene glycol 3350 [Miralax] 17 gram/dose powder 17 gm PO PRN PRN (Reason: constipation) RF: 0 scopolamine base 1 mg over 3 days Patch 3 Day 1 mg Q1-2D RF: 0 Discontinued esomeprazole magnesium [Nexium] 40 mg capsule,delayed release(DR/EC) 40 mg PO DAILY MDD 1 Qty: 30 RF: 3 fentanyl 100 mcg/hr patch 72 hour 1 patch TD Q72H MDD 100 mcg Qty: 10 RF: 0 hydromorphone 4 mg tablet 4 mg PO Q4H MDD 20 mg PRN (Reason: pain) Qty: 90 RF: 0 Discharge Instructions Instructions: Breast Cancer in Women (DC) Additional Instructions: follow up per hospice medications per hospice Stand Alone Forms: Nursing Discharge Form Activity:: Activity as Tolerated Equipment/Supplies:: No Equipment Needed Diet:: As Tolerated Discharge Orders Discharge Orders: Discharge Order (Routine); Ordered 07/10/19 Ordered By: Denise Page DS: Summary Status at Discharge Functional status at discharge: independent ambulation Overall status at discharge: patient is not back to baseline Mental Status: other (pleasantly confused) Speech and Movement: speech and movement normal Mood: other (pleasantly confused) Affect: normal affect (confusion) Exam Const General: cooperative, healthy appearing, comfortable and no acute distress HENMT Head: normal to inspection Ears: hearing grossly normal bilaterally Mouth: oral mucosae normal Resp Effort & Inspection: normal respiratory effort and able to speak in complete sentences Auscultation: clear to auscultation bilaterally Cardio Rate: regular rate Rhythm: regular rhythm GI Inspection: normal to inspection Palpation: soft Auscultation: normal bowel sounds Skin General skin exam: no rashes or lesions noted Neuro General: alert, awake, oriented x3, oriented Patient Orientation: Person, Place and Confused and moves all extremities Extrem General: normal to inspection, full ROM and edema Laterality: bilateral Psych Appearance: grossly normal Mental Status: other (pleasantly confused) Speech and Movement: speech and movement normal Mood: other (pleasantly confused) Affect: normal affect (confusion) Attitude: cooperative Insight: limited Judgment: limited DS: Data Vitals/I&O Vitals and I&O: Vital Signs Temperature 36.8 C 07/08/19 08:20 Temperature Source Tympanic 07/08/19 08:20 Pulse 93 H 07/08/19 08:20 Pulse Rhythm Regular 07/08/19 00:05 Respiratory Rate 18 07/08/19 08:20 Respiratory Effort 07/10/19 07:56 Respiratory Depth Normal 07/10/19 07:56 Respiratory Pattern Normal 07/10/19 07:56 Blood Pressure 133/72 07/08/19 08:20 Blood Pressure Position Supine 07/07/19 14:37 Pulse Oximetry 99 07/09/19 10:35 Oxygen Delivery Method Room Air 07/09/19 18:41 Oxygen Flow Rate 0 07/09/19 18:41 Pain Level 3 07/10/19 07:25 Comment 07/08/19 01:45 Intake & Output 07/09/19 07/09/19 07/10/19 11:59 23:59 11:59 Intake Total 80 / 200 120 / 200 0 / 0 Output Total 300 / 300 1100 / 1100 Balance 80 / -100 -180 / -100 -1100 / -1100 Intake: IV 80 / 80 Oral 120 / 120 0 / 0 Output: Urine 300 / 300 1100 / 1100 Other: Urine Color Yellow Pale Yellow Urine Appearance Clear Clear Comment Patient requested the hat out of toilet. Voiding Methods Toilet Toilet Toilet [facility] Medical History Aneurysm Asthma Blind right eye (Acute) Cancer related pain (Chronic) Dyspnea (Acute) Generalized weakness (Acute) History of cerebral aneurysm (Acute) HTN (hypertension) Malignant neoplasm of breast (female), unspecified site (Acute 08/28/12) INTERMEDIATE GRADE INTRADUCTAL CARCINOMA OF THE LEFT BREAST S/P MASTECTOMY AND AXILLARY NODE DISSECTION. Adjuvant RX and radiation Metastatic breast cancer (Chronic) to spine and other bones, lung, lymph nodes Neoplasm, breast Follow-up with [facility] this fall. Palliative care patient (Acute) Pulmonary embolism (Acute) Recurrent breast cancer (Chronic) passed her 5 year cure date in September 2018 Unintentional weight loss (Acute) Surgical History Abdominal hysterectomy (~1998) ovaries remain Colonoscopy - IV Sedation (05/21/16) Family History Mother , age 83 Hypertension Stroke Father , age 85 Heart disease Sister , age 64 Leukemia Sister , age 83 Stroke Sister No problems noted. Brother , age 84 Heart disease Brother No problems noted. Son No problems noted. Son No problems noted. Daughter No problems noted. Daughter No problems noted. Social History Smoking/Tobacco Use Status: Never Alcohol Intake: current Alcohol Intake frequency: a few times a week Alcohol type: wine Drug use: Never Substance use type: does not use Caregiver/Support person: Yes Household members: spouse Housing: house Do you need help understanding health information?: Rarely Pets and animals: No Sexually active: No Do you think of yourself as: straight/heterosexual Current gender identity: decline to answer What is your relationship status?: How often do you talk on the phone with friends or family?: twice per week How often do you get together with friends or relatives?: once per week How often do you attend scientology or zoroastrian services?: decline to answer Do you belong to any clubs or organized social groups?: yes Panel score (0-1 are the most socially isolated patients): 3 What type of physical activity do you participate in: walking and other Duration: 15-30 minutes/day Frequency: daily Leann/Pentecostal: Jainism Special leann needs: No Seatbelt use: always Drive intox or ride w/intox local company intermodal truck driver: No Do you feel safe at home: Yes Do you feel safe in your relationship?: Yes Additional Social history: Just passed 5 year cure date in September 2018. Not surprised at current findings. Knows she is very sick. Pain is uncontrolled, intolerable. Very winded with minimal exertion, weak,.
--- NOTE | 2019-07-10 13:42 | CMDISCH_ITS ---
- If Service Date Differs Date of service: 07/10/19 Time of Service: 13:42 LACE Index Scoring Tool - Questions: Length of Stay (in days): 3 Acuity (Admit via E.D.?): No Comorbidities: Cerebrovascular Disease, Metastatic Solid Tumor E.D. Visits: 2 - Answers: Total Score: 10 Risk of Readmission: High Risk Care Management Discharge Reason for Hospitalization: Dehydration, metastatic breast cancer, poor oral intake Discharge Plan: Fay will be discharged home on hospice. A nurse from [facility] came to the hospital and provided her with a pain pump for home use. Hospice will visit Fay at her home this afternoon to officially enroll her in hospice and ensure that she has what she needs. Patient/Family Education Needs: Discharge plan, limitations, hospice benefits
== END 2019-07-10 13:21 | disposition home health service (06) | DRG 640 ==
LOC: ER 19:09 → MS 19:59
PROVIDERS: Admitting Provider Internal Medicine; Emergency Provider Emergency Medicine; PCP Internal Medicine; Visit Provider Internal Medicine
DX: E86.0 Dehydration (principal); I26.99 Other pulmonary embolism without acute cor pulmonale; C79.9 Secondary malignant neoplasm of unspecified site; C50.919 Malignant neoplasm of unspecified site of unspecified female breast; R11.2 Nausea with vomiting, unspecified; G89.3 Neoplasm related pain (acute) (chronic); Z51.5 Encounter for palliative care; Z79.01 Long term (current) use of anticoagulants; E03.9 Hypothyroidism, unspecified; E87.1 Hypo-osmolality and hyponatremia; D70.1 Agranulocytosis secondary to cancer chemotherapy; I10 Essential (primary) hypertension; K21.9 Gastro-esophageal reflux disease without esophagitis; Z66 Do not resuscitate
CPT/HCPCS: 36415; 80048; 80053; 94640; 96361; 96374; 96375; 96376; 99219; 99233; 99239; 99255; 99285; 81003; 83735; 85025; 99226; 99284; G0378; J0131; J0780; J1170; J2405; J3490; J7512; J7620

== ENCOUNTER 2019-07-25 19:23 | Outpatient (REF) | payer MEDICARE, BC, SELFPAY ==
[2019-07-25 17:16] LABS: Bilirubin Small (Negative); Blood Trace-intact (Negative); Clarity Turbid (Clear); Glucose Negative (Negative); Ketones >=160 mg/dL (Negative); Leukocyte Esterase Large (Negative); Nitrite Negative (Negative); Urobilinogen 0.2 EU/dL (Up TO 0.2); pH >= 9.0 (5-8)
[2019-07-25 17:28] LABS: Bacteria Packed HPF (Negative); WBC >50 HPF (0-5)
[2019-07-25 17:29] LABS: C & S Indicated? C&S Done As Ordered
== END 2019-07-25 19:43 ==
LOC: LBN 19:23
PROVIDERS: PCP Internal Medicine; Visit Provider Family Medicine
DX: N39.0 Urinary tract infection, site not specified (principal)
CPT/HCPCS: 87077; 81003; 81015; 87086; 87186

== ENCOUNTER 2019-08-08 16:34 | Inpatient (IN) | payer OTHER, SELFPAY ==
[2019-08-08 16:49] VITALS: BP 172/78; PULSE 94; RESP 20; TEMP 36.6; O2SAT 90
[2019-08-08] MEDS: Scopolamine 1 MG/3 DAYS PATCH TD (18:57)
--- NOTE | 2019-08-08 20:16 | NUR.NOTE ---
Home Health CADD pump changed over to hospital CADD pump. HH pump given to nurse scanning supervisor Albina Purvis for storage in the pharmacy. [place] home health agency notified of CADD location. Nursing Note:
[2019-08-08] MEDS: LORazepam 2 MG/ML VIAL IV/SC (20:49)
--- NOTE | 2019-08-08 21:19 | W.PM.HP.N ---
Date of service: 08/08/19 Assessment and Plan Assessment and plan (1) Hallucinations: Status: Acute Assessment and plan: She has haldol ordered both PO and IM. If ineffective, will change to newer anti-psychotic. (2) Recurrent breast cancer: Status: Chronic Assessment and plan: Reason for her admission to hospice. Has been rapidly progressive. Mets to bone and liver and likely brain, though no recent imaging. Continue with any interventions to maximize her comfort. (3) Metastatic breast cancer: Status: Chronic (4) Restless: Status: Acute (5) Insomnia: Status: Acute Assessment and plan: Ordered trazodone 100-200 mg po qhs as well as melatonin 9 mg qhs She has prn lorazepam and haldol. Her pain appears to be suitably controlled. (6) Hospice care: Status: Acute Assessment and plan: Fay was admitted on symptom management. Expect it will take a few days to figure out how to make her more comfortable. Next step might be to change her opioid to see if we can decrease any neurotoxicity she is experiencing. (7) Comfort measures only status: Status: Acute (8) Cancer related pain: Status: Chronic History of Present Illness History of Present Illness Chief Complaint: restlessness, terminal agitation, metastatic breast ca, sx mangement Narrative: 69 yo woman with widely metastatic recurrent breast cancer, on hospice. Son Flo and daughter Roxy present on admission. They explain that Fay has not slept more than 1-2 hrs per day over the last 4 days. She is hallucinating about seeing her father. She is very busy, trying to get ready to go--I explained that much of what she is going through is consistent with the work of dying. Her , Jeanmarie, is exhausted. Her 4 children are taking turns caring for her--even though none of them are local. She is on hydromorphone 10 mg/hr at home. She also had several doses of both lorazepam and haldol today. Review of Systems Narrative: Son and daughter explain that Fay has not been sleeping x 4 days. She is on hydromorphone at 10 mg/hr for cancer pain. She is getting boluses frequently. She is taking lorazepam for agitation. She is constantly picking at her bedclothes. She sees her father regularly; she tells her family he is waiting for her. She knows she is having hallucinations. She is restless but not fearful. She has been on high dose hydromorphone for almost a month now--will consider opioid rotation IF we cannot settle her down with sedating meds such as trazodone and melatonin tonight. Suspect she will be here for several days. Constitutional Constitutional: Reports difficulty sleeping, Reports fatigue, Reports poor appetite, Reports weakness and Reports weight loss Eyes Eyes: Reports dry eyes and Reports requires corrective lenses Comments: playing with her glasses, trying to take them apart ENT Ears, Nose, Mouth, and Throat: Reports dry mouth Cardiovascular Cardiovascular: Reports rapid heart rate and Reports dyspnea on exertion Respiratory Respiratory: Reports dyspnea on exertion Gastrointestinal Gastrointestinal: Reports constipation and Reports early satiety Genitourinary Genitourinary: Reports urinary incontinence Musculoskeletal Musculoskeletal: Reports atrophy and Reports muscle weakness Integumentary/Breasts Skin/Breast: Reports dry skin and Reports unusual bruising Neurologic Neurologic: Reports abnormal speech, Reports behavioral changes, Reports confusion, Reports memory loss, Reports restless legs and Reports weakness Psychiatric Psychiatric: Reports abnormal sleep pattern, Reports behavioral changes, Reports confusion, Reports difficulty concentrating, Reports memory loss, Reports visual hallucinations and Reports hallucinations Endocrine Endocrine: Reports fatigue Hematologic/Lymphatic Hematologic/Lymphatic: Reports easy bruising [facility] Medical History (Updated 08/08/19 @ 21:48 by Melissa Proctor MD) Aneurysm Anticoagulant prescribed (Resolved) Asthma Blind right eye (Acute) Cancer related pain (Chronic) Dyspnea (Acute) Generalized weakness (Acute) History of cerebral aneurysm (Acute) Hospice care (Acute) HTN (hypertension) Insomnia (Acute) Malignant neoplasm of breast (female), unspecified site (Acute 08/28/12) INTERMEDIATE GRADE INTRADUCTAL CARCINOMA OF THE LEFT BREAST S/P MASTECTOMY AND AXILLARY NODE DISSECTION. Adjuvant RX and radiation Metastatic breast cancer (Chronic) to spine and other bones, lung, lymph nodes Neoplasm, breast Follow-up with [facility] this fall. Palliative care patient (Acute) Pulmonary embolism (Acute) Recurrent breast cancer (Chronic) passed her 5 year cure date in September 2018 Restless (Acute) Unintentional weight loss (Acute) Surgical History Abdominal hysterectomy (~1998) ovaries remain Colonoscopy - IV Sedation (05/21/16) Social History (Updated 08/08/19 @ 21:38 by Melissa Proctor MD) Smoking/Tobacco Use Status: Never Alcohol Intake: current Alcohol Intake frequency: a few times a week Alcohol type: wine Drug use: Never Substance use type: does not use Caregiver/Support person: Yes Household members: spouse Housing: house Do you need help understanding health information?: Rarely Pets and animals: No Sexually active: No Do you think of yourself as: straight/heterosexual Current gender identity: decline to answer What is your relationship status?: How often do you talk on the phone with friends or family?: never How often do you get together with friends or relatives?: three or more times per week How often do you attend mandaeism or faith services?: decline to answer Do you belong to any clubs or organized social groups?: yes Panel score (0-1 are the most socially isolated patients): 3 What type of physical activity do you participate in: none and bed-bound Leann/Restorationist: Shinto Special leann needs: No Seatbelt use: always Drive intox or ride w/intox driver education instructor: No Do you feel safe at home: Yes Do you feel safe in your relationship?: Yes Additional Social history: Passed 5 year cure date in September 2018. Diagnosed with recurrence last fall. Elected to enter hospice in June 2019. Has been cared for by family at home until this admission--Fay not sleeping, restless, with terminal delirium. Meds Home Medications and Allergies Home Medications Medication Instructions Recorded Confirmed Type Travatan 0.004% Eye Drop 1 drp OU DAILY drp 11/03/12 08/08/19 History calcium carbonate [Tums] 2,000 mg PO PRN PRN #90 tab.chew 11/25/14 08/08/19 History brimonidine 0.2 %-timolol 0.5 % 1 drp OD BID #5 m 05/17/18 08/08/19 Rx eye drops losartan 100 1 tab PO DAILY #90 tab-cap 05/17/18 08/08/19 Rx mg-hydrochlorothiazide 25 mg tablet levothyroxine 25 mcg capsule 37.5 mcg PO DAILY #145 cap 05/18/18 08/08/19 Rx amlodipine 5 mg tablet 5 mg PO DAILY #30 tab-cap 01/15/19 08/08/19 Rx metoprolol succinate 50 mg 50 mg PO DAILY #90 tab 03/28/19 08/08/19 Rx tablet,extended release 24 hr salmeterol 50 mcg/dose blister 1 inh IH BID #60 each 06/12/19 08/08/19 Rx powder for inhalation gabapentin 300 mg capsule 300 mg PO TID #90 cap 06/16/19 08/08/19 Rx Eliquis 5 mg PO BID 07/07/19 08/08/19 History lorazepam 0.5 mg PO PRN PRN 07/07/19 08/08/19 History ondansetron HCl [Zofran] 4 mg PO Q4-5H 07/07/19 08/08/19 History polyethylene glycol 3350 [Miralax] 17 gm PO PRN PRN 07/07/19 08/08/19 History scopolamine base 1 mg TRANSDERMAL Q1-2D 07/07/19 08/08/19 History cephalexin 500 mg capsule 500 mg PO TID #21 cap 07/27/19 08/08/19 Rx haloperidol lactate 2 mg/mL oral 2 mg PO Q60M PRN #15 ml 07/27/19 08/08/19 Rx concentrate hydromorphone See Rx Instructions .ROUTE .COMPLEX 08/08/19 08/08/19 History Allergies Allergy/AdvReac Type Severity Reaction Status Date / Time nickel Allergy Severe SWELLING; Verified 07/07/19 14:45 ITCH paclitaxel [From Taxol] Allergy Intermediate Cardiac Verified 07/07/19 14:45 Dysrythmia formaldehyde Allergy Unknown HANDS Verified 07/07/19 14:45 BREAKOUT; CRACK iodine Allergy Unknown Verified 07/07/19 14:45 doxycycline AdvReac Intermediate Nausea Verified 07/07/19 14:45 Exam Narrative Exam Narrative: Sitting in bed, has her CADD pump in place, but pulling on tubing attached to pump, wrapping it around her arm. Confused. Oriented to self only. Seems to recognize her children. Not agitated but restless. Fiddling with bedclothes. No facial grimace. No furrowed brow. No moaning. Skin is pale and dry. Eyes anicteric. MM are dry but not parched. No JVD. No LAD. Lungs were clear. Heart was regular but fast. Abdomen is diffusely tender, more so in RUQ. Legs are with 1+ edema and cool. No obvious breathing. She can answer questions but not logically. She is quite tangential in her language. She doesn't look frightened. She is actively hallucinating. Results Last Vital Signs Temp 97.9 F 08/08/19 16:49 Pulse 94 H 08/08/19 16:49 Resp 20 08/08/19 16:49 BP 172/78 H 08/08/19 16:49 Pulse Ox 90 L 08/08/19 16:49
[2019-08-08] MEDS: Melatonin 3 MG TAB PO (21:35)
[2019-08-08] MEDS: traZODone 100 MG TAB PO (21:35)
[2019-08-08] MEDS: Senna TAB PO (21:35)
--- NOTE | 2019-08-09 09:11 | PGE_ITS ---
Date of Service Date of service: 08/09/19 Time of Service: 09:12 Assessment and Plan Assessment and plan (1) Dying care: Status: Acute Assessment and plan: Advised family I think she has hours to days to live.. Provided emotional support to daughter and spouse. Contacted hospice care transitions coordinator for spiritual care. Discussed after plans. [place] crematory; will need to do certificate delilah. (2) Insomnia: Status: Acute Assessment and plan: Slept very soundly with melatonin 9 mg and trazodone 100 mg. Still sleeping this am on exam. (3) Restless: Status: Resolved Assessment and plan: sleeping soundly transitioning to active dying (4) Comfort measures only status: Status: Acute Assessment and plan: continues with her hydromorphone CADD pump at same dose as home at this point, unable to swallow will not be able to take melatonin or trazodone tonight does have IM haldol and lorazepam ordered prn if need be, can give trazodone rectally that really seemed to make a difference will follow daily Subjective Subjective Patient reports: feels better and pain is less Interval history since last seen: Received 100 mg trazodone and 9 mg of melatonin last night. Slept all night. On her hydromorphone CADD pump at 10 mg/hr. No boluses given once an inpatient. Unresponsive this am. Jeanmarie and daughter Roxy present this am. Son Flo went back to [place]. Appears closer to . Having some episodes of apnea. Minimally responsive. Exam Narrative Exam Narrative: Lying back in bed, minimally responsive, eyes closed, and daughter present. Hernandez in place. Episodes of apnea. Has her CADD pump in place. No facial grimace. No furrowed brow. No moaning. Skin is pale and dry. Eyes closed. MM are dry but not parched. + JVD. No LAD. Lungs were clear. Heart was regular but fast. Abdomen is soft, no rebound or guarding. . Legs are with 1+ edema and cool. No agitation. Objective Objective Clinical Data: Vital Signs Temperature 97.9 F 08/08/19 16:49 Pulse 94 H 08/08/19 16:49 Pulse Rhythm Regular 08/08/19 19:51 Respiratory Rate 20 08/08/19 16:49 Respiratory Effort Non-Labored 08/08/19 23:31 Respiratory Depth Normal 08/08/19 23:31 Respiratory Pattern Normal 08/08/19 23:31 Blood Pressure 172/78 H 08/08/19 16:49 Pulse Oximetry 90 L 08/08/19 16:49 Oxygen Delivery Method Room Air 08/08/19 22:54 Oxygen Flow Rate 0 08/08/19 22:54 Pain Level 5 08/08/19 18:50 Comment 08/08/19 16:49 Intake & Output 08/08/19 08/08/19 08/09/19 11:59 23:59 11:59 Output Total 350 / 350 Balance -350 / -350 Output: Urine 350 / 350 Other: Urine Color Light Shy Dark Shy Urine Appearance Clear Purulent Comment pt came in with a hernandez in place
--- NOTE | 2019-08-09 11:16 | NUR.NOTE ---
Patient here with breast cancer that has metastasized to bone and liver. Patient had not slept for 4 days prior to admission to hospital, family seeking symptom management to aide in comfort and patient's ability to rest. Per report resident got one time orders for trazadone along with PRN melatonin and ativan with positive effects and had slept all night. Per assessment patient laying in bed, non-responsive to most stimuli (loud noises and sudden jarring movements elicit eyes open/flutter) but otherwise non-responsive. Face and body posture show relaxation free from sx of distress or pain. Patient is pale with gaping mouth, bradypnea with apnea roughly about 10-12 seconds. Skin intact. Abdomen flat, and bowel sounds normoactive x4. LS diminshed but clear throughout. Patient's pain controlled via CADD pump at scheduled continuos rate, bolus given at beginning and end of personal care and repositioning for comfort (eyes open/moan) with positive relief. Dwyer patent with minimal drainage of tea colored urine at this time. MD in while and daughter present and discussed it seems like sx controlled and since a high dose of medications was note needed to obtain desired results, patient is most likely very concerned about leaving her family and the hospital is more conducive to her comfort--family seemed to understand this. Comfort cart from kitchen as well as comfort cart for music placed in room. Coiled Tubing Supervisor will be in to visit. Family has made arrangements for cremation through [employer] with contact number as [phone]. Frequent sfaety and comfort checks provided for patient and family.Nursing Note:
--- NOTE | 2019-08-09 12:35 | PHARADMIT ---
Addendum entered by Alonzo Purdy III 08/10/19 11:03: Patient on [facility] for end of life Hospice care. increased basal rate tp 15mg/hr with 5mg boluses. May run into difficulty when Subcutaneous rate exceeds 2mL/hr (20mg). Yesterday, noted that patient was down to hours of life remaining. Original Note: Admission Pharmacy Clinical Review Hospice symptom management Code Status DNR/DNI Current Weight none entered Renally Cleared and Narrow Therapeutic Index Meds no labs QTc Value / Action Taken n/a BP Control, Fever BP 172/78 afebrile Electrolytes reviewed no labs DVT Prophylaxis none Opiate Usage / Scheduled Bowel Regimen Ordered adeola and prn for both Plt/SCr for Heparin / Enoxaparin no labs INR for Warfarin n/a H/H stable, WBC/Bands no labs Antibiotic appropriateness none Cultures and Sensitivities none Surgical ABX d/c within 24 hr n/a DM control / Insulin Dosing no labs Heart Failure (Check EF%) (CHAPIS's, B-Block, Diuretics) none IV to PO Switch n/a Home Meds Reviewed -lots of BLEACHER LARD depressants -separate admin of levothyroxine from calcium carbonate -timolol may diminish the bronchodilatory effect of salmeterol -brimonidine may enhance the av blocking effect of metoprolol Home Meds Not Ordered amlodipine, brimonidine/timolol, calcium carbonate, cephalexin, apixaban, gabapentin, levothyroxine, losartan/HCTZ, metoprolol, ondansetron, salmeterol, travatan Comments hydromorphone cadd ordered 10 mg/hr (1 mL/hr) currently
--- NOTE | 2019-08-09 13:51 | CHAPLAIN ---
I have been visiting with Fay, who is unresponsive now, and her daughter Roxy. Fay is now much calmer than she was at home and Roxy said she is grateful to see her mom being peaceful. Fay's returned home to get some rest, as Fay has been up often during the nights according to Roxy, and he'll be back this afternoon. Rev. Francesca Balbuena, the Home Health and Staffing Mgr, has visited Fay at home and visited her here today. Fay has been a hospice patient for several months. Francesca said that Fay was raised Latter-Day, then converted to Catholicism when she was , but has not attended baptist in a long time. A boat master visited at home and offered Fay the Sacrament of the Sick. Roxy said she did not feel it was necessary to have the boat master visit Fay here. I will continue to visit. I let Roxy know that chaplains are available always.
--- NOTE | 2019-08-09 13:58 | PDOC.CMIN ---
- If Service Date Differs Date of service: 08/09/19 Time of Service: 13:59 Care Management Initial Assess REASON FOR HOSPITALIZATION:: Symptom Management Hospice PAST MEDICAL HISTORY/PAST SURGICAL HISTORY:: Medical History (Updated 08/08/19 @ 21:48 by Melissa Proctor MD). Aneurysm. Anticoagulant prescribed (Resolved). Asthma. Blind right eye (Acute). Cancer related pain (Chronic). Dyspnea (Acute). Generalized weakness (Acute). History of cerebral aneurysm (Acute). Hospice care (Acute). HTN (hypertension). Insomnia (Acute). Malignant neoplasm of breast (female), unspecified site (Acute 08/28/12). 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 Adjuvant RX and radiation. Metastatic breast cancer (Chronic). to spine and other bones, lung, lymph nodes. Neoplasm, breast. Follow-up with [facility] this fall. Palliative care patient (Acute). Pulmonary embolism (Acute). Recurrent breast cancer (Chronic). passed her 5 year cure date in September 2018. Restless (Acute). Unintentional weight loss (Acute). Surgical History . Abdominal hysterectomy (~1998). ovaries remain. Colonoscopy - IV Sedation (05/21/16) PREVIOUS FUNCTIONAL STATUS/SOCIAL/FAMILY SUPPORTS:: Fay lives with her , Jeanmarie, in [place]. They have four adult children- Flo, Roxy, Elbert, and Tennille. They are all very supportive of their mother's health care goals and wishes. Fay was previously independent, having passed the 5 year 'cure date' in September 2018. Recently she was diagnosed with bone metastasis by [facility]. CURRENT FUNCTIONAL STATUS:: Fay was lying in bed resting when CM met with her. Her daughter, Roxy was in the room. There is a Hospice comfort tray in the room with food/drinks for family. Music is playing for Fay's comfort. She appears to be comfortable at this time. CM offered support to the family during this difficult time. Per provider, Fay may have hours to days to live. CM will continue to follow and provide support to Fay, her family and staff. ADVANCE DIRECTIVES:: On file, Baudilio listed as agent. Rita listed as alternate agent. All children listed to be consulted. Has patient been provided with information about the portal?: Yes Did the patient sign up for the portal?: Yes (previously signed up) CODE STATUS:: DNR/DNI INSURANCE COVERAGE / FINANCIAL ISSUES:: MCR/ BCBS CURRENT HOME/COMMUNITY SERVICES/EQUIPMENT:: Fay and her family are receiving support from Hospice. She has a hospital bed at home, and Hospice will provide any additional equipment needed. PRIMARY CARE PHYSICIAN:: Mago Velez POTENTIAL DISCHARGE NEEDS:: Emotional/Grief support for family, final arrangement information PATIENT/FAMILY EDUCATION NEEDS:: Emotional/Grief support for family, final arrangement information ANTICIPATED BARRIERS TO DISCHARGE:: None identified at this time. TRANSPORTATION:: TBD PLAN:: Per provider, Fay may pass during this admission, as she appears to have hours to days to live. Fay has chosen [facility] for her final arrangements. Contact information for [facility], . will provide support to Fay, her family and staff during this difficult time.
[2019-08-09] MEDS: traZODone 100 MG TAB PO (20:33)
[2019-08-10] MEDS: LORazepam 2 MG/ML VIAL IV/SC ×2 (08:11→15:15)
--- NOTE | 2019-08-10 13:57 | W.NUTCONSULT ---
Date of service: 08/10/19 Time of Service: 13:57 Nutritional Consult ASSESSMENT: Jaclyn is here for end of life care. will be available as needed. Currently no po intake as unresponsive. Time Spent in Nutritional Counseling and Treatment: 0 time spent face to face
--- NOTE | 2019-08-10 15:53 | PDOC.CMPRO ---
- If Service Date Differs Date of service: 08/10/19 Time of Service: 15:53 Care Management Progress Note S/O: Fay was resting peacefully when CM came to see her and her family. Her was present and stated that Fay appears much more comfortable and less agitated. CM offered supportive listening and support. A: Fay is a 69 year old woman admitted on 08/08/19 for end of life care. P:Fay is at [facility] for symptom management as a hospice patient. It is anticipated that her passing is imminent, hours to days. She is receiving comfort care and family support.
--- NOTE | 2019-08-10 17:07 | W.PM.PROGNOT ---
Date of Service Date of service: 08/10/19 Time of Service: 08:07 Assessment and Plan Assessment and plan (1) Dying care: Status: Acute Assessment and plan: Not restless as she was on admission. Trazodone working well for sleep. Pain controlled with increase in hydromorphone by CADD pump. Other needs being attended to: repositioning, mouth care, hernandez in place. No unmet comfort needs once her pain meds were increased. Expect she will within the next 48 hrs, though hard to tell. Continue on symptom management. (2) Restless: Status: Resolved Assessment and plan: Much improved since admission. Receiving prn lorazepam. Has curtl ordered prn. (3) Hospice care: Status: Acute Assessment and plan: Hospice admission, symptom management. (4) Comfort measures only status: Status: Acute Assessment and plan: Family and patient getting excellent support from the nursing team at [facility]. (5) Cancer related pain: Status: Chronic Assessment and plan: On hydromorphone, high dose. Previously on high dose fentanyl patches. If she develops neurotoxicity from the hydromorphone, would consider changing her to fentanyl drip. Subjective Subjective Patient reports: still having pain Interval history since last seen: Lying in bed. Eyes open but not alert. New myoclonus. Nurse reports Fay was in pain with repositioning. She was moving independently in her bed a bit last night, too, per daughter Roxy who spent the night. Jeanmarie also present this am. Nurse increased hydromorphone rate to 15 mg/hr, as allowed by tiitration protocol. Fay needed a lot of boluses last night. Over the course of the day, she was much better at new dosing. Nurses used lorazepam prn for her myclonus and that improved, too. Still minimally responsive. But calm, no longer agitated. Exam Narrative Exam Narrative: Lying in bed, minimally responsive, eyes open in the am, looking around but not connecting. and daughter present. Hernandez in place. Episodes of apnea. Has her CADD pump in place. Increased to 15 mg/hr this am, just before I arrived. No facial grimace. No furrowed brow. No moaning. Skin is pale and dry. . MM are dry but not parched. + JVD. No LAD. Lungs were clear. Heart was regular but fast. Abdomen is soft, no rebound or guarding. . Legs are with 1+ edema and cool. No agitation. A bit more restless than the day before in the am; by this afternoon, once again calm and resting. Objective Objective Clinical Data: Vital Signs Temperature 97.9 F 08/08/19 16:49 Pulse 94 H 08/08/19 16:49 Pulse Rhythm Regular 08/08/19 19:51 Respiratory Rate 20 08/08/19 16:49 Respiratory Effort 08/10/19 07:30 Respiratory Depth Deep 08/10/19 07:30 Respiratory Pattern Apnea 08/10/19 07:30 Blood Pressure 172/78 H 08/08/19 16:49 Pulse Oximetry 90 L 08/08/19 16:49 Oxygen Delivery Method Room Air 08/09/19 11:12 Oxygen Flow Rate 0 08/09/19 11:12 Pain Level 0 08/09/19 11:12 Comment 08/08/19 16:49 Intake & Output 08/09/19 08/10/19 08/10/19 23:59 11:59 23:59 Intake Total 37.133 / 37.133 Balance 37.133 / 37.133 Intake: IV 37.133 / 37.133 Other: Urine Appearance Cloudy Comment Brown color minimal amount (40ml) urine noted in the bag. Not emptied at this time.
[2019-08-11] MEDS: LORazepam 2 MG/ML VIAL IV/SC ×3 (06:22→09:23)
[2019-08-11] MEDS: Acetaminophen 650 MG SUPP PR (09:00)
--- NOTE | 2019-08-11 11:18 | W.PM.PROGNOT ---
Date of Service Date of service: 08/11/19 Time of Service: 11:18 Assessment and Plan Assessment and plan (1) Dying care: Status: Acute Assessment and plan: Starting palliative sedation with propofol to treat her tachycardia and restlessness. Will continue hydromorphone at 15 mg/hr for pain. discussed propofol at length and reviewed signing of permission form with , Jeanmarie explained that medication will likely slow her heart and drop her BP No haldol given since admission. Lorazepam being used prn; no agitation at this time. Explained to family that I think she is going to today. (2) Hospice care: Status: Acute Assessment and plan: Remains on symptom management as I am adjusting medications. (3) Dehydration: Status: Acute Assessment and plan: Has not had anything to drink since admission. Receiving mouth care. Little UOP. Linked to tachycardia, likely. Subjective Subjective Patient reports: pain is less Interval history since last seen: Minimally responsive. Tachypneic. Tachycardic. Not making urine. [place]Anders breathing with upper airway sounds. at bedside. Daughter came in later. No grimace or groan. Discussed palliative sedation. Her HR is in the 120s and irregular. Discussed palpitations, how they make someone feel, possible comfort interventions. Explained that propofol can slow the heart and lower the BP. Fay was also HTNive on admission. Will continue hydromorphone for pain and start propofol for comfort. Exam Narrative Exam Narrative: Lying in bed, minimally responsive, eyes closed. No spontaneous movement. Audible breathing/upper airway sounds. and daughter present. Hernandez in place. Has her CADD pump in place. Continuing at 15 mg/hr; has received a few boluses, (total 3 last 12 hrs), the last just before I arrived. No facial grimace. No furrowed brow. No moaning. Skin is pale and dry. . MM are dry and parched. + JVD. No LAD. Lungs were clear. Heart was irregular and fast. + murmur now, likely due to dehydration. Minimal UOP. Abdomen is soft, no rebound or guarding. . Legs are with 1+ edema. No mottling. No agitation. Skin is sallow, horn, lips with some cyanosis. Objective Objective Clinical Data: Vital Signs Temperature 97.9 F 08/08/19 16:49 Pulse 94 H 08/08/19 16:49 Pulse Rhythm Regular 08/08/19 19:51 Respiratory Rate 20 08/08/19 16:49 Respiratory Effort Non-Labored 08/11/19 07:43 Respiratory Depth Normal 08/11/19 07:43 Respiratory Pattern Normal 08/11/19 07:43 Blood Pressure 172/78 H 08/08/19 16:49 Pulse Oximetry 90 L 08/08/19 16:49 Oxygen Delivery Method Room Air 08/09/19 11:12 Oxygen Flow Rate 0 08/09/19 11:12 Pain Level 0 08/09/19 11:12 Comment 08/08/19 16:49 Intake & Output 08/10/19 08/10/19 08/11/19 11:59 23:59 11:59 Intake Total 37.133 / 37.133 38.475 / 38.475 Balance 37.133 / 37.133 38.475 / 38.475 Intake: IV 37.133 / 37.133 38.475 / 38.475 Other: Urine Appearance Cloudy Cloudy Comment no urine in the bag hernandez catheter continues to have no output
[2019-08-11] MEDS: PROPOFOL 1,000 MG/100 ML BTL 1 MG IVPB (11:26)
--- NOTE | 2019-08-11 18:32 | PDOC.CMPRO ---
- If Service Date Differs Date of service: 08/11/19 Time of Service: 18:32 Care Management Progress Note Fay peacefully today shortly before noon. Her and daughter were by her side. Arrangements have been made with [facility] [facility] [place] . Dr. Proctor was notified by .
== END 2019-08-11 11:55 | disposition expired | DRG 880 ==
PROVIDERS: Admitting Provider Family Medicine; PCP Internal Medicine; Visit Provider Family Medicine
DX: R44.3 Hallucinations, unspecified (principal); C79.51 Secondary malignant neoplasm of bone; C78.7 Secondary malignant neoplasm of liver and intrahepatic bile duct; C79.31 Secondary malignant neoplasm of brain; C50.919 Malignant neoplasm of unspecified site of unspecified female breast; R45.1 Restlessness and agitation; G47.00 Insomnia, unspecified; Z51.5 Encounter for palliative care; G89.3 Neoplasm related pain (acute) (chronic)
CPT/HCPCS: 99223; 99233; J1170; J2060; J3490